=== PATIENT | male | born 1960 | race Caucasian/White ===

== ENCOUNTER 2016-06-02 18:19 | Emergency (ER) | payer OTHER ==
[~2016-06-02 18:19] MED LIST: NAPR1TAB34 PO
[2016-06-02 19:03] VITALS: BP 140/84; PULSE 83; RESP 18; TEMP 98.5; O2SAT 98
[2016-06-02] MEDS ORDERED: LISI-515 PO (19:09)
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
--- NOTE | 2016-06-02 20:02 | RADRPT ---
EXAM DATE/TIME: 06/02/2016 19:20 [facility] COMPARISON: No previous studies available for comparison. INDICATIONS : Fall and hit head with loss of consciousness today. RADIATION DOSE: 37.90 CTDIvol (mGy) MEDICAL HISTORY : Hypertension. Renal cancer. SURGICAL HISTORY : None. ENCOUNTER: Initial ACUITY: 1 day PAIN SCALE: 3/10 LOCATION: cranial TECHNIQUE: Multiple contiguous axial images were obtained of the head. Using automated exposure control and adj ustment of the mA and/or kV according to patient size, radiation dose was kept as low as reasonably a chievable to obtain optimal diagnostic quality images. FINDINGS: There is an air-fluid level in the left maxillary sinus characteristic of sinusitis. There is no intr acranial mass, hemorrhage or shift. No hydrocephalus. No abnormal extra-axial fluid collections. CONCLUSION: 1. Left maxillary sinus disease. No acute intracranial abnormalities. Socrates Bernard MD on June 02, 2016 at 19:54 Board Certified Radiologist. This report was verified electronically.
--- NOTE | 2016-06-02 20:05 | RADRPT ---
EXAM DATE/TIME: 06/02/2016 19:20 [facility] COMPARISON: No previous studies available for comparison. INDICATIONS : Fall and hit head with loss of consciousness today. RADIATION DOSE: 13.91 CTDIvol (mGy) MEDICAL HISTORY : Hypertension. Renal cancer. SURGICAL HISTORY : Tonsillectomy. ENCOUNTER: Initial ACUITY: 1 day PAIN SCALE: 2/10 LOCATION: neck TECHNIQUE: Volumetric scanning of the cervical spine was performed. Multiplanar reconstructions in the sagittal, coronal and oblique axial planes were performed. Using automated exposure control and adjustment o f the mA and/or kV according to patient size, radiation dose was kept as low as reasonably achievable to obtain optimal diagnostic quality images. FINDINGS: There is moderate degenerative disc disease in the cervical spine. There is a mild levoscoliosis. The re is a mild degenerative retrolisthesis of C4 on C5. 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 No preverte bral soft tissue swelling. CONCLUSION: 1. Moderate degenerative disc disease. No acute fracture. Socrates Bernard MD on June 02, 2016 at 20:00 Board Certified Radiologist. This report was verified electronically.
[2016-06-02] MEDS ORDERED: KETOROLAC TROMETHAMINE 30 MG/ML (IVP) VIAL IV PUSH ONE (20:30)
[2016-06-02] MEDS ORDERED: traMADol HCL 50 MG TAB PO ONE (20:30)
[2016-06-02] MEDS ORDERED: IBUP-232 PO (21:10)
[2016-06-02] MEDS ORDERED: HYDR-3533 PO (21:10)
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
[2016-08-17] MEDS ORDERED: IPRAAER INH (15:19)
[2016-08-31] MEDS ORDERED: PRED1 PO (15:10)
[2016-08-31] MEDS ORDERED: PNEU25IN IM (15:10)
[2016-08-31] MEDS ORDERED: VENTAER INH (15:10)
== END 2016-06-03 03:11 | disposition home or self-care (01) ==
LOC: NEPE 18:19
DX: S70.01XA Contusion of right hip, initial encounter (principal); S46.811A Strain of other muscles, fascia and tendons at shoulder and upper arm level, right arm, initial encounter; S16.1XXA Strain of muscle, fascia and tendon at neck level, initial encounter; I12.9 Hypertensive chronic kidney disease with stage 1 through stage 4 chronic kidney disease, or unspecified chronic kidney disease; N18.9 Chronic kidney disease, unspecified; Z87.442 Personal history of urinary calculi; W01.198A Fall on same level from slipping, tripping and stumbling with subsequent striking against other object, initial encounter; Y93.89 Activity, other specified; Y99.8 Other external cause status; Y92.59 Other trade areas as the place of occurrence of the external cause
CPT/HCPCS: 70450; 72125; 73030; 73502; 96374; 99284; J1885

== ENCOUNTER 2016-07-12 15:08 | Emergency (ER) | payer OTHER ==
[~2016-07-12] VITALS: Ht 185.4 cm; Wt 70.5 kg
[~2016-07-12 15:08] MED LIST changes: +HYDR-3533 PO; +IBUP-232 PO; +LISI-515 PO
[2016-07-12 15:13] VITALS: BP 92/58; PULSE 92; RESP 18; TEMP 99.7; O2SAT 96
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
[2016-08-17] MEDS ORDERED: IPRAAER INH (15:19)
[2016-08-31] MEDS ORDERED: VENTAER INH (15:10)
[2016-08-31] MEDS ORDERED: PRED1 PO (15:10)
[2016-08-31] MEDS ORDERED: PNEU25IN IM (15:10)
== END 2016-07-12 15:54 | disposition home or self-care (01) ==
LOC: PHEFT 15:08
DX: M54.5 Low back pain (principal); G89.29 Other chronic pain; I10 Essential (primary) hypertension; E07.9 Disorder of thyroid, unspecified; N19 Unspecified kidney failure; G47.30 Sleep apnea, unspecified; Z87.39 Personal history of other diseases of the musculoskeletal system and connective tissue; Z87.09 Personal history of other diseases of the respiratory system; Z86.59 Personal history of other mental and behavioral disorders; Z85.528 Personal history of other malignant neoplasm of kidney; Z87.19 Personal history of other diseases of the digestive system; Z87.448 Personal history of other diseases of urinary system; Z86.69 Personal history of other diseases of the nervous system and sense organs; W19.XXXD Unspecified fall, subsequent encounter
CPT/HCPCS: 99283

== ENCOUNTER 2016-08-10 16:16 | Observation (INO) | payer OTHER ==
[~2016-08-10] VITALS: Ht 185.4 cm; Wt 67.7 kg
[~2016-08-10 16:16] MED LIST changes: -IBUP-232 PO; -NAPR1TAB34 PO
[2016-08-10 16:39] VITALS: BP 128/71; PULSE 70; RESP 16; TEMP 98.2; O2SAT 99
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
--- NOTE | 2016-08-10 18:47 | RADHPO ---
EXAM DATE/TIME: 08/10/2016 18:19 [facility] COMPARISON: No previous studies available for comparison. INDICATIONS : Complains of right rib pain. MEDICAL HISTORY : None. SURGICAL HISTORY : None. ENCOUNTER: Initial ACUITY: 1 month PAIN SCORE: 8/10 LOCATION: Right ribs FINDINGS: There is no acute fracture or dislocation of the right ribs. There is a mass-like density within the right perihilar region which is indeterminate. Differential includes true pulmonary mass or nodular infiltrate. CT of the chest may be helpful for further evaluation of this finding and can be perform ed as an outpatient if clinically indicated. CONCLUSION: 1. No evidence of fracture or dislocation of the right ribs. 2. Right perihilar mass-like density consistent with true pulmonary mass or nodular infiltrate. Outpa tient CT of the chest may be helpful for further characterization of this finding if clinically indic ated. Cezar Russell MD on August 10, 2016 at 18:36 Board Certified Radiologist. This report was verified electronically.
[2016-08-10 20:00] VITALS: BP 136/78; PULSE 79; RESP 16; O2SAT 99
[2016-08-10 20:07] LABS: AUTOMATED NEUTROPHIL # 5.1 TH/MM3 (1.8-7.7); BASOPHIL % 0.2 % (0.0-2.0); CHLORIDE 98 MEQ/L (98-107); EOSINOPHIL # 0.1 TH/MM3 (0-0.4); EOSINOPHIL % 0.5 % (0.0-4.0); HEMATOCRIT 30.8 % (39.0-51.0); LYMPH % 49.6 % (9.0-44.0); LYMPHOCYTE # 6.8 TH/MM3 (1.0-4.8); MEAN CELL VOLUME 93.4 FL (80.0-100.0); MEAN CORPUSCULAR HEMOGLOBIN 30.7 PG (27.0-34.0); MEAN CORPUSCULAR HGB CONC 32.8 % (32.0-36.0); MONO % 12.4 % (0.0-8.0); NEUT % 37.3 % (16.0-70.0); PLATELET COUNT 497 TH/MM3 (150-450); POTASSIUM 4.3 MEQ/L (3.5-5.1); RED BLOOD COUNT 3.29 MIL/MM3 (4.50-5.90); RED CELL DISTRIBUTION WIDTH 12.8 % (11.6-17.2); SODIUM (NA) 137 MEQ/L (136-145); WHITE BLOOD COUNT 13.7 TH/MM3 (4.0-11.0)
[2016-08-10 20:10] LABS: HEMO FLAGS AUTO DIFF
[2016-08-10 20:12] LABS: ANION GAP 7 MEQ/L (5-15); BICARBONATE 32.4 MEQ/L (21.0-32.0); BLOOD UREA NITROGEN 16 MG/DL (7-18)
[2016-08-10 20:15] LABS: ALT (GPT) 43 U/L (12-78); AST (GOT) 37 U/L (15-37); GLOMERULAR FILTRATION RATE 81 ML/MIN (>89)
[2016-08-10 20:17] LABS: TOTAL BILIRUBIN ADULT 0.3 MG/DL (0.2-1.0)
[2016-08-10 20:18] LABS: ALKALINE PHOSPHATASE 135 U/L (45-117)
[2016-08-10 20:22] LABS: BANDS 1 % (0-6); NEUTROPHIL # MANUAL DIFF 5.1 TH/MM3 (1.8-7.7); PLATELET ESTIMATE SMEAR NORMAL (NORMAL); PLATELET MORPHOLOGY NORMAL (NORMAL); POLYS (SEG NEUTROPHILS) 36 % (16-70); SCAN/DIFF FINAL DIFF MANUAL; WBC DIFF SAMPLE 100
[2016-08-10] MEDS ORDERED: IOHEXOL 350 MG/ML 10 ML VIAL (for RAD DIAG) IV ONE (20:45)
--- NOTE | 2016-08-10 21:11 | RADHPO ---
EXAM DATE/TIME: 08/10/2016 20:33 [facility] COMPARISON: No previous studies available for comparison. INDICATIONS : Right chest pain. Right perihilar mass-like density. IV CONTRAST: 75 cc Omnipaque 350 (iohexol) IV RADIATION DOSE: 6.78 CTDIvol (mGy) MEDICAL HISTORY : Hypertension. Renal failure, chronic. Hernia, hiatal. Jaundice. Gastroesophageal reflux. SURGICAL HISTORY : Appendectomy. Nephrectomy, left. Splenectomy. ENCOUNTER: Initial ACUITY: 4 - 6 days PAIN SCALE: 8/10 LOCATION: Right chest TECHNIQUE: Volumetric scanning of the chest was performed. Using automated exposure control and adjustment of t he mA and/or kV according to patient size, radiation dose was kept as low as reasonably achievable to obtain optimal diagnostic quality images. FINDINGS: There is evidence of a ill-defined mass within the right lower lobe posteriorly which measures 6.5 x 5.8 x 4.9 cm. This is suspicious for bronchogenic carcinoma until proven otherwise. Percutaneous bi opsy of this lesion could be performed if requested. Right hilar and subcarinal mediastinal lymphade nopathy is noted. No other pulmonary nodules are noted. No pulmonary edema is noted. No pleural effusion is noted. T here is a small collection of air within the right paratracheal region of the superior mediastinum wh ich is nonspecific. CONCLUSION: 1. Right lower lobe mass measuring 6.5 x 5.8 x 4.9 cm which raises the possibility of bronchogenic ca rcinoma until proven otherwise. Percutaneous biopsy of this lesion could be performed if requested. 2. Right hilar and subcarinal mediastinal lymphadenopathy. 3. Small collection of air within the right paratracheal region of the superior mediastinum which is nonspecific. Cezar Russell MD on August 10, 2016 at 20:58 Board Certified Radiologist. This report was verified electronically.
[2016-08-10] MEDS ORDERED: ONDANSETRON HCL 4 MG/2 ML VIAL IV PUSH ONE (21:30)
[2016-08-10] MEDS ORDERED: SODIUM CHLORIDE 0.9% FLUSH 10 ML FLUSH IV FLUSH PRN (21:30)
[2016-08-10] MEDS ORDERED: MORPHINE SULFATE 8 MG/ML INJ IV PUSH ONE (21:30)
[2016-08-10] MEDS ORDERED: NALOXONE HCL 0.4 MG/ML AMP IV PRN (21:30)
[2016-08-10 21:35] VITALS: O2SAT 99
[2016-08-10 23:40] VITALS: BP 119/67; PULSE 77; RESP 16; O2SAT 97
[2016-08-11] VITALS (8 sets, daily range): BP systolic 117–147; BP diastolic 67–74; PULSE 55–82; RESP 16–18; TEMP 97–100; O2SAT 95–97
[2016-08-11] MEDS: MORPHINE SULFATE 4 MG/ML INJ IV PUSH PRN ×4 (00:49→15:55)
[2016-08-11 06:00] LABS: AUTOMATED NEUTROPHIL # 4.3 TH/MM3 (1.8-7.7); BASOPHIL # 0.3 TH/MM3 (0-0.2); BASOPHIL % 2.3 % (0.0-2.0); EOSINOPHIL # 0.1 TH/MM3 (0-0.4); EOSINOPHIL % 0.6 % (0.0-4.0); HEMATOCRIT 30.5 % (39.0-51.0); MEAN CELL VOLUME 92.8 FL (80.0-100.0); MEAN CORPUSCULAR HEMOGLOBIN 30.6 PG (27.0-34.0); MEAN CORPUSCULAR HGB CONC 32.9 % (32.0-36.0); MONO % 13.3 % (0.0-8.0); NEUT % 34.8 % (16.0-70.0); PLATELET COUNT 496 TH/MM3 (150-450); RED BLOOD COUNT 3.28 MIL/MM3 (4.50-5.90); RED CELL DISTRIBUTION WIDTH 12.9 % (11.6-17.2); WHITE BLOOD COUNT 12.3 TH/MM3 (4.0-11.0)
[2016-08-11 06:04] LABS: HEMO FLAGS AUTO DIFF
[2016-08-11 06:05] LABS: POTASSIUM 4.5 MEQ/L (3.5-5.1)
[2016-08-11 06:08] LABS: BICARBONATE 31.5 MEQ/L (21.0-32.0)
[2016-08-11 06:20] LABS: EOSINOPHILS 1 % (0-4); NEUTROPHIL # MANUAL DIFF 4.3 TH/MM3 (1.8-7.7); PLATELET ESTIMATE SMEAR HIGH (NORMAL); PLATELET MORPHOLOGY NORMAL (NORMAL); POLYS (SEG NEUTROPHILS) 35 % (16-70); SCAN/DIFF FINAL DIFF MANUAL; WBC DIFF SAMPLE 100
--- NOTE | 2016-08-11 08:36 | HHI.PR ---
Addendum to Inpatient Note Additional Information Was paged by Dr. Aidan ANDREWS no longer does percutaneous CT guided lung biopsy on Sunday' at [place], but outpatient CT guided biopsy can be arranged through case management. Michelle Ramos MD Aug 11, 2016 08:36
[2016-08-11] MEDS ORDERED: SODIUM CHLORIDE 0.9% FLUSH 10 ML FLUSH IV FLUSH SCH (09:00)
[2016-08-11] MEDS ORDERED: DIATRIZOATE MEGLUM/DIATRIZOATE SOD 9 ML CUP PO ONE (10:15)
--- NOTE | 2016-08-11 10:51 | HHI.HP ---
[facility] No Primary Care Physician Admission Diagnosis LUNG MASS, PAIN Diagnoses: Chief Complaint: Ongoing, unrelieved right-sided chest pain Travel History International Travel<30 Days: No Contact w/Intl Traveler <30 Da: No Traveled to Known Affected Are: No History of Present Illness Mr. Mckeon is a 56-year-old male with a known history of splenectomy, renal cell carcinoma with right nephrectomy, asthma, arthritis, GERD, and hypertension. He presented to the emergency room yesterday with complaints of ongoing chest pain for about a month now. Patient states pain is characteristically constant in nature, with it fluctuating between sharp, dull and pressing pain. He states the pain "takes his breath away". He did admit to associated shortness of breath which forces him to rest frequently and limits his activity. Pain does not occur at any particular time of day and has been on Lortab prescribed by his primary care doctor, which seems to help it subside here and there. Patient does admit to occasional dizziness and nausea without vomiting. He has noticed a 25-pound weight loss within the past month, with frequent fevers, night sweats , and diaphoresis requiring him to change clothes "six times per day". Patient does have an associated persistent, nonproductive cough. Chest CT has resulted showing a right lower lobe mass measuring 6.5x5.8x4.9 cm; right hilar and subcarinal mediastinal lymphadenopathy. Low grade temps at this time. Review of Systems Constitutional: COMPLAINS OF: Diaphoretic episodes, Fatigue, Weight loss, Chills, Dizziness, Change in appetite, Night Sweats Endocrine: DENIES: Heat/cold intolerance, Polydipsia, Polyuria, Polyphagia Eyes: DENIES: Blurred vision, Diplopia, Eye inflammation, Eye pain, Vision loss , Photosensitivity, Double Vision Ears, nose, mouth, throat: DENIES: Tinnitus, Hearing loss, Vertigo, Nasal discharge, Oral lesions, Throat pain, Hoarseness, Ear Pain, Running Nose, Epistaxis, Sinus Pain, Toothache, Odynophagia Respiratory: COMPLAINS OF: Shortness of breath, DENIES: Apneas, Cough, Snoring , Wheezing, Hemoptysis, Sputum production Cardiovascular: COMPLAINS OF: Chest pain, Dyspnea on Exertion, DENIES: Palpitations, Syncope, PND, Lower Extremity Edema, Orthopnea, Claudication Gastrointestinal: COMPLAINS OF: Nausea, DENIES: Abdominal pain, Black stools, Bloody stools, Constipation, Diarrhea, Vomiting, Difficulty Swallowing, Anorexia Genitourinary: DENIES: Sexual dysfunction, Urinary frequency, Urinary incontinence, Urgency, Hematuria, Dysuria, Nocturia, Penile Discharge, Testicular Pain, Testicular Swelling Musculoskeletal: COMPLAINS OF: Muscle aches, DENIES: Joint pain, Stiffness, Joint Swelling, Back pain, Neck pain Integumentary: DENIES: Abnormal pigmentation, Nail changes, Pruritus, Rash Hematologic/lymphatic: DENIES: Bruising, Lymphadenopathy Immunologic/allergic: DENIES: Eczema, Urticaria Neurologic: DENIES: Abnormal gait, Headache, Localized weakness, Paresthesias, Seizures, Speech Problems, Tremor, Poor Balance Psychiatric: DENIES: Anxiety, Confusion, Mood changes, Depression, Hallucinations, Agitation, Suicidal Ideation, Homicidal Ideation, Delusions Past Family Social History Past Medical History Asthma Arthritis GERD Hypertension Past Surgical History Splenectomy Right sided nephrectomy Reported Medications Reported Meds & Active Scripts Active Lortab (Hydrocodone-Acetaminophen) 5-325 Mg Tab 1 Tab PO Q6H PRN Reported Lisinopril 20 Mg Tab 20 Mg PO DAILY Allergies: Coded Allergies: Solu-Medrol (Verified Allergy, Intermediate, nausea, 08/10/16) Family History Mother and father are elderly but quite healthy. Social History Patient lives with elderly mother and father, single, with grown children. 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 Denies current or former tobacco use. Denies any recent alcohol use. Denies any illicit drug use. Physical Exam Vital Signs Vital Signs Date Time Temp Pulse Resp B/P Pulse Ox O2 Delivery O2 Flow Rate FiO2 08/11/16 09:41 19 08/11/16 07:02 100.0 82 16 118/67 96 Room Air 08/11/16 06:58 82 16 96 Room Air 08/11/16 06:00 75 18 135/70 95 Room Air 08/11/16 05:00 75 18 95 Room Air 08/11/16 04:00 75 18 130/72 95 Room Air 3/31/17 02:00 75 18 128/71 95 Room Air 08/11/16 01:00 75 18 95 Room Air 08/11/16 00:00 78 16 98 Room Air 08/10/16 23:40 77 16 119/67 97 Room Air 08/10/16 21:50 16 08/10/16 21:35 99 08/10/16 20:00 79 16 136/78 99 Room Air 08/10/16 20:00 79 16 99 Room Air 08/10/16 18:01 18 99 Room Air 08/10/16 16:39 98.2 70 16 128/71 99 Physical Exam GENERAL: This is a well-developed patient, in no apparent distress, lying comfortably in bed. SKIN: No rashes, ecchymoses or lesions. Cool and dry. HEAD: Atraumatic. Normocephalic. No temporal or scalp tenderness. EYES: Pupils equal round and reactive. Extraocular motions intact. No scleral icterus. No injection or drainage. No nystagmus noted. ENT: Nose without bleeding, purulent drainage or septal hematoma. Throat without erythema, tonsillar hypertrophy or exudate. Uvula midline. Airway patent. NECK: Trachea midline. No JVD or lymphadenopathy. Supple, nontender, no meningeal signs. CARDIOVASCULAR: Regular rate and rhythm without murmurs, gallops, or rubs. RESPIRATORY: Clear to auscultation. Breath sounds equal bilaterally. No wheezes , rales, or rhonchi. GASTROINTESTINAL: Abdomen soft and nondistended. Somewhat tender to palpation throughout. No hepato-splenomegaly, or palpable masses. No guarding. BS active x 4. MUSCULOSKELETAL: Extremities without clubbing, cyanosis, or edema. No joint tenderness, effusion, or edema noted. No calf tenderness. Negative Homans sign bilaterally. NEUROLOGICAL: Awake and alert. Cranial nerves II through XII intact. Motor and sensory grossly within normal limits. Five out of 5 muscle strength in all muscle groups. Normal speech. Laboratory Laboratory Tests Test 08/10/16 08/11/16 19:30 05:45 White Blood Count 13.7 12.3 Red Blood Count 3.29 3.28 Hemoglobin 10.1 10.0 Hematocrit 30.8 30.5 Mean Corpuscular Volume 93.4 92.8 Mean Corpuscular Hemoglobin 30.7 30.6 Mean Corpuscular Hemoglobin 32.8 32.9 Concent Red Cell Distribution Width 12.8 12.9 Platelet Count 497 496 Mean Platelet Volume 7.8 7.5 Neutrophils (%) (Auto) 37.3 34.8 Lymphocytes (%) (Auto) 49.6 49.0 Monocytes (%) (Auto) 12.4 13.3 Eosinophils (%) (Auto) 0.5 0.6 Basophils (%) (Auto) 0.2 2.3 Neutrophils # (Auto) 5.1 4.3 Lymphocytes # (Auto) 6.8 6.0 Monocytes # (Auto) 1.7 1.6 Eosinophils # (Auto) 0.1 0.1 Basophils # (Auto) 0.0 0.3 CBC Comment AUTO DIFF AUTO DIFF Differential Total Cells 100 100 Counted Neutrophils % (Manual) 36 35 Band Neutrophils % 1 Lymphocytes % 50 50 Monocytes % 13 14 Neutrophils # (Manual) 5.1 4.3 Differential Comment FINAL DIFF FINAL DIFF MANUAL MANUAL Platelet Estimate NORMAL HIGH Platelet Morphology Comment NORMAL NORMAL Red Cell Morphology Comment NORMAL NORMAL Sodium Level 137 135 Potassium Level 4.3 4.5 Chloride Level 98 96 Carbon Dioxide Level 32.4 31.5 Anion Gap 7 8 Blood Urea Nitrogen 16 13 Creatinine 0.97 0.88 Estimat Glomerular Filtration 81 90 Rate Random Glucose 93 96 Calcium Level 8.7 8.6 Total Bilirubin 0.3 Aspartate Amino Transf 37 (AST/SGOT) Alanine Aminotransferase 43 (ALT/SGPT) Alkaline Phosphatase 135 Total Protein 7.9 Albumin 2.5 Eosinophils % 1 Result Diagram: 08/11/16 0545 08/11/16 0545 Imaging Last Impressions Chest CT 08/10/16 1859 Signed Impressions: Service Date/Time: July 20:33 - CONCLUSION: 1. Right lower lobe mass measuring 6.5 x 5.8 x 4.9 cm which raises the possibility of bronchogenic carcinoma until proven otherwise. Percutaneous biopsy of this lesion could be performed if requested. 2. Right hilar and subcarinal mediastinal lymphadenopathy. 3. Small collection of air within the right paratracheal region of the superior mediastinum which is nonspecific. Cezar Russell MD Ribs X-Ray 08/10/16 1814 Signed Impressions: Service Date/Time: July 18:19 - CONCLUSION: 1. No evidence of fracture or dislocation of the right ribs. 2. Right perihilar mass-like density consistent with true pulmonary mass or nodular infiltrate. Outpatient CT of the chest may be helpful for further characterization of this finding if clinically indicated. Cezar Russell MD Assessment and Plan Assessment and Plan Right lower lobe mass, right sided chest pain, diaphoresis, leukocytosis, bandemia, fever - Admitted to observation - Chest x-ray: right perihilar mass-like density consistent with true pulmonary mass or nodular infiltrate. - Chest CT resulted: right lower lobe mass measuring 6.5x5.8x4.9 cm; right hilar and subcarinal mediastinal lymphadenopathy. - CT abdomen/pelvis ordered. - Consult Medical oncology, appreciate input. - Interventional radiology already consulted: requested percutaneous lung biopsy - AFP, CA 19-9,CEA, LDH, PSA ordered. - Control pain: Morphine PRN Anemia - Monitor CBC DVT Prophylaxis - Sequential compression devices Written by Obi Melchor PA-C, acting as scribe for Dr. Ramos. All or portions of this note were transcribed by scribe Obi Melchor. I, Dr. Michelle Ramos personally performed the history, physical exam, and medical decision making; and confirmed the accuracy of the information in the transcribed note. I personally spoke with Dr. Antonio Tee of interventional radiology, appointment for CT-guided biopsy has been arranged for Sunday at 11 AM. I also spoke with Dr. Quigley so that the patient can be seen in his office within one week, the patient's face sheet was faxed to their patient referral line. Patient instructed to call oncology office if he does not hear back from them by Sunday. We have also arranged him to have patient assistance so he can be seen in the community clinic for primary care. Authenticated by Dr. Michelle Ramos on 08/11/16 at 17:56. Obi Melchor Aug 11, 2016 10:51 Michelle Ramos MD Aug 11, 2016 17:57
[2016-08-11] MEDS ORDERED: HYDR-3533 PO (11:03)
[2016-08-11] MEDS ORDERED: PERI8.6T PO (11:23)
[2016-08-11] MEDS ORDERED: LEVA750T PO (11:23)
--- NOTE | 2016-08-11 12:12 | RADHPO ---
EXAM DATE/TIME: 08/11/2016 11:51 [facility] COMPARISON: CT THORAX W CONTRAST, August 10, 2016, 20:33. INDICATIONS : Lung mass, evaluate for metastasis. ORAL CONTRAST: Prescribed oral contrast ingested. RADIATION DOSE: 8.46 CTDIvol (mGy) MEDICAL HISTORY : Renal cell carcinoma. Myocardial infarction. Congestive heart failure.Hypertension. Renal failure. Diabetes. SURGICAL HISTORY : Splenectomy. CABG ENCOUNTER: Initial ACUITY: 1 day PAIN SCALE: 0/10 LOCATION: Abdomen TECHNIQUE: Volumetric scanning of the abdomen and pelvis was performed. Using automated exposure control and ad justment of the mA and/or kV according to patient size, radiation dose was kept as low as reasonably achievable to obtain optimal diagnostic quality images. FINDINGS: Minimal parenchymal changes are seen in the lung base on the right. The liver, spleen, pancreas are unremarkable. Surgical clips are seen around the portion of the spleen and in the left renal fossa. The right kidney is unremarkable. There is no free fluid. Pelvic contents are unremarkable. CONCLUSION: There is no evidence of metastatic disease. Lack of intravenous contrast can make subtle metastatic disease difficult to see History of left nephrectomy for renal cell carcinoma. Colten Tee MD FACR on August 11, 2016 at 12:07 Board Certified Radiologist. This report was verified electronically.
[2016-08-17] MEDS ORDERED: IPRAAER INH (15:19)
[2016-08-31] MEDS ORDERED: PRED1 PO (15:10)
[2016-08-31] MEDS ORDERED: PNEU25IN IM (15:10)
[2016-08-31] MEDS ORDERED: VENTAER INH (15:10)
== END 2016-08-11 18:45 | disposition home or self-care (01) ==
LOC: PHED 16:16 → PHEDA 21:28 → PHEDH 08-11 01:28 → PH3A 08-11 08:56
PROVIDERS: ADMIT Family Medicine; ATTEND Family Medicine
DX: R07.89 Other chest pain (principal); D64.9 Anemia, unspecified; D72.825 Bandemia; R61 Generalized hyperhidrosis; R91.8 Other nonspecific abnormal finding of lung field; I13.0 Hypertensive heart and chronic kidney disease with heart failure and stage 1 through stage 4 chronic kidney disease, or unspecified chronic kidney disease; N18.9 Chronic kidney disease, unspecified; I50.9 Heart failure, unspecified; K21.9 Gastro-esophageal reflux disease without esophagitis; J45.909 Unspecified asthma, uncomplicated; M19.90 Unspecified osteoarthritis, unspecified site; D72.829 Elevated white blood cell count, unspecified; I25.2 Old myocardial infarction; Z95.1 Presence of aortocoronary bypass graft; F41.9 Anxiety disorder, unspecified; Z90.81 Acquired absence of spleen; Z85.528 Personal history of other malignant neoplasm of kidney; Z88.8 Allergy status to other drugs, medicaments and biological substances
CPT/HCPCS: 71101; 71260; 74176; 80048; 80053; 82105; 82378; 83615; 84153; 85007; 85027; 86301; 99285; G0378; J2270; J2405; Q9963; Q9967

== ENCOUNTER 2016-08-15 10:46 | Day surgery (SDC) | payer OTHER ==
[~2016-08-15] VITALS: Ht 185.4 cm; Wt 68.2 kg
[2016-08-15] VITALS (7 sets, daily range): BP systolic 116–128; BP diastolic 61–82; PULSE 76–85; RESP 16–20; TEMP 98.1–98.8; O2SAT 98–99
[~2016-08-15 10:46] MED LIST changes: +LEVA750T PO; +PERI8.6T PO
[2016-08-15 12:12] LABS: APTT (PATIENT) 25.7 SEC (24.3-30.1); INTERNATIONAL NORMALIZED RATIO 1.1 RATIO; PROTHROMBIN TIME - PATIENT 12.2 SEC (9.8-11.6)
[2016-08-15] MEDS ORDERED: LIDOCAINE 1%/EPINEPHrine 1:100,000 SOLN 20 ML VIAL ONE (12:26)
[2016-08-15] MEDS ORDERED: fentaNYL CITRATE 250 MCG/5 ML AMP ONE (12:36)
[2016-08-15] MEDS ORDERED: MIDAZOLAM HCL 5 MG/5 ML VIAL ONE (12:36)
[2016-08-15] MEDS ORDERED: SODIUM CHLORIDE 0.9% FLUSH 10 ML FLUSH IV FLUSH PRN ×2 (12:45)
[2016-08-15] MEDS ORDERED: SODIUM CHLOR 0.9% 1000 ML IV SCH (12:45)
[2016-08-15] MEDS ORDERED: MIDAZOLAM HCL 2 MG/2 ML VIAL ONE (13:31)
--- NOTE | 2016-08-15 13:53 | PD.RAD ---
Post Procedure Progress Note Pre Procedure Diagnosis: (1) Lung mass Post Procedure Diagnosis: (1) Lung mass Procedure Date: Aug 15, 2016 Supervising Radiologist: Sushant Tee Anesthesia: Local, Conscious Sedation Plan of Activity Patient to Unit: [facility] Patient Condition: Good Additional Comments: Successful ct guided right lung mass biopsy samples sent for path and culture See PACS Report for procedural detail/treatment Sushant Tee MD Aug 15, 2016 13:53
[2016-08-15] MEDS ORDERED: oxyCODONE/ACETAMINOPHEN 5 MG/325 MG TAB PO PRN (14:00)
[2016-08-15] MEDS ORDERED: MORPHINE SULFATE 8 MG/ML INJ ONE (14:13)
[2016-08-15] MEDS ORDERED: MORPHINE SULFATE 4 MG/ML INJ IV ONE (14:30)
--- NOTE | 2016-08-15 14:30 | RADRPT ---
EXAM DATE/TIME: 08/15/2016 13:07 [facility] COMPARISON: CT ABDOMEN & PELVIS W/O CONTRAST, August 11, 2016, 11:51. INDICATIONS : Right lung mass. SEDATION TIME: 40 minutes BIOPSY SITE: Right lung MEDICATION(S): 1.) 6 mg midazolam (Versed) IV 2.) 300 mcg fentanyl (Sublimaze) IV DEVICE(S): 1.) 20 gauge Temno core biopsy needle MEDICAL HISTORY : Renal cell carcinoma. Hypertension. SURGICAL HISTORY : Appendectomy. Splenectomy. Left nephrectomy. ENCOUNTER: Initial ACUITY: 1 day PAIN SCORE: 0/10 LOCATION: Right chest A total of three core specimen(s) were obtained and sent to the laboratory for pathologic evaluation. PROCEDURE: 1. CT guided lung biopsy. 2. Conscious sedation with continuous EKG and oximetry monitoring. 3. EKG and oximetry remained stable throughout the procedure. Prior to the procedure informed consent was obtained. Any appropriate prior imaging studies were rev iewed. Using automated exposure control and adjustment of the mA and/or kV according to patient size, radiation dose was kept as low as reasonably achievable to obtain optimal diagnostic quality images. The site was prepped in a sterile fashion. Full sterile technique was used, including cap, mask, alisa rile gloves and gown and a large sterile sheet. Hand hygiene and 2% chlorhexidine and/or betadine/al cohol prep was utilized per protocol for cutaneous antisepsis. The skin and subcutaneous tissues wer e infiltrated with local anesthetic solution. With CT guidance the previously identified target was localized. Biopsy was performed using the presc ribed needle as above. Adequate hemostasis was obtained with compression at the puncture site. Follow-up CT scan reveals no pneumothorax. Conscious sedation was performed with the prescribed dosages and duration as above in the presence of an independent trained radiology nurse to assist in the monitoring of the patient. EKG and oximetry remained stable throughout the procedure. The patient tolerated the procedure well and there were no complications. The patient was sent to Radiology Outpatient Unit in stable condition. CONCLUSION: Uncomplicated CT guided biopsy of the right lung. Sushant Tee MD on August 15, 2016 at 14:26 Board Certified Radiologist. This report was verified electronically.
--- NOTE | 2016-08-15 16:16 | RADRPT ---
EXAM DATE/TIME: 08/15/2016 15:12 [facility] COMPARISON: RIBS RIGHT(W PA CXR MIN 3VWS), August 10, 2016, 18:19. INDICATIONS : Post right lung biopsy. MEDICAL HISTORY : Hypertension. Renal failure, chronic. Hernia, hiatal. Jaundice. Gastroesophageal SURGICAL HISTORY : Appendectomy. Nephrectomy, left. Splenectomy. ENCOUNTER: Initial ACUITY: 1 day PAIN SCORE: 10/10 LOCATION: Bilateral chest FINDINGS: The patient is post right lung biopsy. No pneumothorax is seen. Again noted is a large mass in the ri ght lung base. Left lung is clear. The osseous structures are intact. CONCLUSION: No pneumothorax following CT guided biopsy of the right lung. Sushant Tee MD on August 15, 2016 at 16:14 Board Certified Radiologist. This report was verified electronically.
[2016-08-17] MEDS ORDERED: IPRAAER INH (15:19)
[2016-08-31] MEDS ORDERED: VENTAER INH (15:10)
[2016-08-31] MEDS ORDERED: PNEU25IN IM (15:10)
[2016-08-31] MEDS ORDERED: PRED1 PO (15:10)
== END 2016-08-15 17:00 | disposition home or self-care (01) ==
LOC: HRAD 10:46 → HRIP 10:47 → HRAD 17:00
PROVIDERS: ATTEND Surgery
DX: R91.8 Other nonspecific abnormal finding of lung field (principal); I10 Essential (primary) hypertension; J84.89 Other specified interstitial pulmonary diseases; C64.9 Malignant neoplasm of unspecified kidney, except renal pelvis
CPT/HCPCS: 32405; 71010; 77012; 85610; 85730; 87015; 87070; 87102; 87116; 87205; 87206; 88305; J2250; J2270; J3010

== ENCOUNTER → 2016-09-27 | Outpatient (CLI) | payer OTHER ==
[~2016-09-27] MED LIST changes: +IODIXANOL 320 MG/ML 10 ML VIAL (for Rad CT) IV ONE; +IPRAAER INH; -LEVA750T PO; -LISI-515 PO; +PRED1 PO; +VENTAER INH
--- NOTE | 2016-10-12 21:54 | RADRPT ---
EXAM DATE/TIME: 09/27/2016 14:07 [facility] COMPARISON: CT THORAX W CONTRAST, August 10, 2016, 20:33. INDICATIONS : Restaging for cancer. History of renal cancer IV CONTRAST: 50 cc Omnipaque 350 (iohexol) IV ; Cumulative dose for multiple exams. RADIATION DOSE: 5.1 CTDIvol (mGy) ; Combined studies - Thorax/Abdomen/Pelvis MEDICAL HISTORY : Renal cell carcinoma. SURGICAL HISTORY : Nephrectomy, left. ENCOUNTER: Initial ACUITY: 1 day PAIN SCALE: 0/10 LOCATION: chest TECHNIQUE: Volumetric scanning of the chest was performed. Using automated exposure control and adjustment of t he mA and/or kV according to patient size, radiation dose was kept as low as reasonably achievable to obtain optimal diagnostic quality images. FINDINGS: The alveolar disease involving the superior segment of the right lower lobe has nearly completely res olved suggesting inflammatory process rather than malignancy. There are 2 small bulla may be the site of the abnormality. No pleural effusions are identified. The 2 cm precarinal lymph node is unchanged. No new nodes are identified. The visualized upper abdomen demonstrates no abnormality. CONCLUSION: 1. Comparison with the prior study the alveolar disease in the right lower lobe has nearly entirely r esolved suggesting inflammatory process rather than malignancy though correlation with histologic fin dings is necessary. 2. No other nodules are identified. Grant Norton MD on September 27, 2016 at 15:00 Board Certified Radiologist. This report was verified electronically.
--- NOTE | 2016-10-12 21:55 | RADRPT ---
EXAM DATE/TIME: 09/27/2016 14:07 [facility] COMPARISON: CT ABDOMEN & PELVIS W/O CONTRAST, August 11, 2016, 11:51. INDICATIONS : Restaging for cancer. History of renal cancer 10 years ago IV CONTRAST: 50 cc Omnipaque 350 (iohexol) IV ; Cumulative dose for multiple exams. ORAL CONTRAST: Prescribed oral contrast ingested. RADIATION DOSE: 5.1 CTDIvol (mGy) ; Combined studies - Thorax/Abdomen/Pelvis MEDICAL HISTORY : Renal cell carcinoma. SURGICAL HISTORY : Nephrectomy, left. ENCOUNTER: Initial ACUITY: 1 day PAIN SCALE: 0/10 LOCATION: abdomen TECHNIQUE: Volumetric scanning of the abdomen and pelvis was performed. Using automated exposure control and ad justment of the mA and/or kV according to patient size, radiation dose was kept as low as reasonably achievable to obtain optimal diagnostic quality images. FINDINGS: Examination of the lung bases demonstrates no abnormality. No pleural fluid is identified. No pulmona ry nodules are present. The liver is normal in size and no focal defects are identified. The spleen i s surgically absent. The adrenal glands are unremarkable. The right kidney is unremarkable. The left kidney is surgically absent. No abnormally enlarged lymph nodes are identified. Examination of the pelvis demonstrates no evidence of free fluid or pelvic mass. No abnormally enlarg ed inguinal or retroperitoneal lymph nodes are present. The bladder is unremarkable. CONCLUSION: 1. Postsurgical changes as above. 2. No evidence of metastatic disease. Grant Norton MD on September 27, 2016 at 15:04 Board Certified Radiologist. This report was verified electronically.
== END ==
LOC: HRAD 12:20
PROVIDERS: ATTEND Internal Medicine Hematology & Oncology
DX: Z51.89 Encounter for other specified aftercare (principal); Z85.528 Personal history of other malignant neoplasm of kidney
CPT/HCPCS: 71260; 74177; Q9967

== ENCOUNTER → 2016-12-11 | Outpatient (CLI) | payer OTHER ==
[~2016-12-11] MED LIST changes: +BACT800T5 PO; -HYDR-3533 PO; -IODIXANOL 320 MG/ML 10 ML VIAL (for Rad CT) IV ONE; -IPRAAER INH; -PERI8.6T PO; -PRED1 PO; -VENTAER INH
--- NOTE | 2016-12-13 10:18 | RSPPFT ---
DATE OF PROCEDURE: 12/11/16 COMMENTS: Spirometry shows FVC of 4.7 at 90% of predicted, FEV1 of 3.8 at 91%, FEV1/FVC ratio is normal. Flow is normal at FEF 25, FEF 50, FEF 75 and FEF 25-75. No response after bronchodilator treatment. Lung volumes show residual volume is normal. Total lung capacity is normal. Diffusion capacity is normal. Flow volume loop indicates a normal pattern. IMPRESSION: 1. Normal spirometry. 2. No response after bronchodilator treatment. 3. Normal lung volumes. 4. Normal diffusion capacity.
== END ==
LOC: HRSP 12:38
PROVIDERS: ATTEND Specialist
DX: J98.4 Other disorders of lung (principal); R06.00 Dyspnea, unspecified
CPT/HCPCS: 94060; 94726; 94729

== ENCOUNTER 2016-12-19 19:27 | Emergency (ER) | payer OTHER ==
[~2016-12-19] VITALS: Ht 185.4 cm; Wt 76.3 kg
[2016-12-19 19:32] VITALS: BP 162/93; PULSE 100; RESP 20; TEMP 98.3; O2SAT 97
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
[2016-12-19] MEDS ORDERED: LIDOCAINE 2%/EPINEPHrine 1:100,000 30ML MDV INFIL ONE (20:30)
[2016-12-19] MEDS ORDERED: LIDOCAINE HCL 1% 50 ML VIAL INFIL ONE (20:30)
[2016-12-19] MEDS ORDERED: BACT800T5 PO (20:45)
[2016-12-19] MEDS ORDERED: ACETAMINOPHEN/HYDROcodone 325 MG/5 MG TAB PO ONE (21:15)
== END 2016-12-19 21:15 | disposition home or self-care (01) ==
LOC: PHEFT 19:27
DX: L02.512 Cutaneous abscess of left hand (principal); J45.909 Unspecified asthma, uncomplicated; I10 Essential (primary) hypertension; B95.61 Methicillin susceptible Staphylococcus aureus infection as the cause of diseases classified elsewhere
CPT/HCPCS: 10061; 86403; 87070; 87186; 87205

== ENCOUNTER → 2016-12-20 | Outpatient (CLI) | payer OTHER ==
[~2016-12-20] MED LIST changes: +AMLO10 PO; +OXYC-392 PO; +PERI8.6T PO; +SULF1TAB23 PO
--- NOTE | 2016-12-20 13:45 | RADRPT ---
EXAM DATE/TIME: 12/20/2016 12:41 [facility] COMPARISON: CT THORAX W CONTRAST, September 27, 2016, 14:07. INDICATIONS : Follow up lung lesion right side RADIATION DOSE: 5.1 CTDIvol (mGy) MEDICAL HISTORY : Renal cell SURGICAL HISTORY : Left nephrectomy ENCOUNTER: Initial ACUITY: 1 day PAIN SCALE: 0/10 LOCATION: chest TECHNIQUE: Volumetric scanning of the chest was performed. Using automated exposure control and adjustment of t he mA and/or kV according to patient size, radiation dose was kept as low as reasonably achievable to obtain optimal diagnostic quality images. DICOM format image data is available electronically for r eview and comparison. Follow-up recommendations for incidentally detected pulmonary nodules are based at a minimum on nodul e size and patient risk factors according to Fleischner Society Guidelines. FINDINGS: LUNGS: A subsegmental opacity with associated small cyst located in the right lower lobe is significantly sm aller. The small cystic components have almost completely resolved.. Mild bronchial dilatation extend s to this area. Lungs lies are clear with no new parenchymal abnormalities. PLEURAE: There is no pleural thickening or pleural effusion. MEDIASTINUM: The heart and great vessels demonstrate no acute abnormality. There is no mediastinal or hilar lymph adenopathy. AXILLAE: Within normal limits. No lymphadenopathy. MUSCULOSKELETAL: Within normal limits for patient age. MISCELLANEOUS: The visualized upper abdominal organs demonstrate no acute abnormality. CONCLUSION: 1. Resolving parenchymal opacity in the right lower lobe most characteristic of an inflammatory proce ss. Continued surveillance is recommended with followup scan in 6 months. 2. No new or acute abnormalities. Bhupendra Patel MD on December 20, 2016 at 13:39 Board Certified Radiologist. This report was verified electronically.
== END ==
LOC: HRAD 12:25
PROVIDERS: ATTEND Specialist
DX: J98.4 Other disorders of lung (principal); R06.00 Dyspnea, unspecified
CPT/HCPCS: 71250

== ENCOUNTER 2016-12-25 21:01 | Inpatient (IN) | payer OTHER ==
[~2016-12-25] VITALS: Ht 185.4 cm; Wt 77.4 kg
[~2016-12-25 21:01] MED LIST changes: -AMLO10 PO; -OXYC-392 PO; -PERI8.6T PO; -SULF1TAB23 PO
[2016-12-25] MEDS ORDERED: SODIUM CHLOR 0.9% 1000 ML INJ 1,000 ML IV SCH (21:09)
[2016-12-25 21:14] VITALS: BP 178/94; PULSE 50; RESP 22; TEMP 97.9; O2SAT 99
[2016-12-25] MEDS ORDERED: MORPHINE SULFATE 4 MG/ML INJ IV PUSH ONE ×2 (21:15→22:00)
[2016-12-25] MEDS ORDERED: ONDANSETRON HCL 4 MG/2 ML VIAL IVP ONE (21:15)
[2016-12-25 21:19] VITALS: O2SAT 100
--- NOTE | 2016-12-25 21:35 | PD ---
Data Data Last Documented VS Vital Signs Date Time Temp Pulse Resp B/P Pulse Ox O2 Delivery O2 Flow Rate FiO2 12/25/16 23:21 58 22 222/111 100 Room Air 12/25/16 21:19 2 12/25/16 21:14 97.9 Orders Complete Blood Count With Diff (12/25/16 21:09) Comprehensive Metabolic Panel (12/25/16 21:09) Lipase (12/25/16 21:09) Lactic Acid (12/25/16 21:09) Prothrombin Time / Inr (Pt) (12/25/16 21:09) Act Partial Throm Time (Ptt) (12/25/16 21:09) Urinalysis - C+S If Indicated (12/25/16 21:09) Ct Abd/Pel W Iv Contrast(Rout) (12/25/16 21:09) Iv Access Insert/Monitor (12/25/16 21:09) Ecg Monitoring (12/25/16 21:09) Oximetry (12/25/16 21:09) Morphine Inj (Morphine Inj) (12/25/16 21:15) Ondansetron Inj (Zofran Inj) (12/25/16 21:15) Sodium Chlor 0.9% 1000 Ml Inj (Ns 1000 M (12/25/16 21:09) Electrocardiogram (12/25/16 21:09) Chest, Single Ap (12/25/16 21:09) Troponin I (12/25/16 21:11) Ckmb (Isoenzyme) Profile (12/25/16 21:11) Morphine Inj (Morphine Inj) (12/25/16 22:00) Us Abdomen Gallbladder (12/25/16 ) Hydromorphone Pf Inj (Dilaudid Pf Inj) (12/25/16 22:15) Iohexol 350 Inj (Omnipaque 350 Inj) (12/25/16 22:32) Ondansetron Inj (Zofran Inj) (12/25/16 23:00) Hydromorphone Pf Inj (Dilaudid Pf Inj) (12/25/16 23:15) Promethazine Inj (Phenergan Inj) (12/25/16 23:15) Electrocardiogram (12/25/16 ) Sodium Chlor 0.9% 1000 Ml Inj (Ns 1000 M (12/26/16 00:45) Lactic Acid (12/26/16 00:43) Piperacil-Tazo 4.5 Gm Premix (Zosyn 4.5 (12/26/16 00:45) Blood Culture (12/26/16 00:43) Monoscreen (12/26/16 00:43) Hydromorphone Pf Inj (Dilaudid Pf Inj) (12/26/16 00:45) Admit Order (Ed Use Only) (12/26/16 ) Admit To Inpatient (12/26/16 ) Vital Signs (Adult) Q4H (12/26/16 00:57) Activity Oob With Assistance (12/26/16 00:57) Form Builder / Telemetry .CONTINUOUS (12/26/16 00:57) Diet Npo (12/26/16 Breakfast) Sodium Chlor 0.9% 1000 Ml Inj (Ns 1000 M (12/26/16 00:57) Sodium Chloride 0.9% Flush (Ns Flush) (12/26/16 01:00) Sodium Chloride 0.9% Flush (Ns Flush) (12/26/16 09:00) Ondansetron Inj (Zofran Inj) (12/26/16 01:00) Comprehensive Metabolic Panel (12/27/16 06:00) Complete Blood Count With Diff (12/27/16 06:00) Case Management Consult (12/26/16 00:57) Naloxone Inj (Narcan Inj) (12/26/16 01:00) Inpatient Certification (12/26/16 ) Piperacil-Tazo 4.5 Gm Premix (Zosyn 4.5 (12/26/16 06:00) Labs Laboratory Tests Test 12/25/16 21:20 White Blood Count 17.0 TH/MM3 Red Blood Count 4.45 MIL/MM3 Hemoglobin 14.4 GM/DL Hematocrit 41.5 % Mean Corpuscular Volume 93.3 FL Mean Corpuscular Hemoglobin 32.4 PG Mean Corpuscular Hemoglobin 34.7 % Concent Red Cell Distribution Width 14.4 % Platelet Count 293 TH/MM3 Mean Platelet Volume 8.4 FL Neutrophils (%) (Auto) 59.9 % Lymphocytes (%) (Auto) 31.9 % Monocytes (%) (Auto) 8.2 % Eosinophils (%) (Auto) 0.0 % Basophils (%) (Auto) 0.0 % Neutrophils # (Auto) 10.2 TH/MM3 Lymphocytes # (Auto) 5.4 TH/MM3 Monocytes # (Auto) 1.4 TH/MM3 Eosinophils # (Auto) 0.0 TH/MM3 Basophils # (Auto) 0.0 TH/MM3 CBC Comment AUTO DIFF Differential Total Cells 100 Counted Neutrophils % (Manual) 60 % Band Neutrophils % 1 % Lymphocytes % 30 % Monocytes % 9 % Neutrophils # (Manual) 10.4 TH/MM3 Differential Comment FINAL DIFF MANUAL Platelet Estimate NORMAL Platelet Morphology Comment NORMAL Red Cell Morphology Comment NORMAL Prothrombin Time 11.5 SEC Prothromb Time International 1.0 RATIO Ratio Activated Partial 23.7 SEC Thromboplast Time Sodium Level 139 MEQ/L Potassium Level 4.0 MEQ/L Chloride Level 104 MEQ/L Carbon Dioxide Level 26.1 MEQ/L Anion Gap 9 MEQ/L Blood Urea Nitrogen 17 MG/DL Creatinine 1.18 MG/DL Estimat Glomerular Filtration 64 ML/MIN Rate Random Glucose 145 MG/DL Lactic Acid Level 2.9 mmol/L Calcium Level 8.9 MG/DL Total Bilirubin 0.6 MG/DL Aspartate Amino Transf 206 U/L (AST/SGOT) Alanine Aminotransferase 437 U/L (ALT/SGPT) Alkaline Phosphatase 146 U/L Total Creatine Kinase 43 U/L Troponin I LESS THAN 0.02 NG/ML Total Protein 7.6 GM/DL Albumin 3.3 GM/DL Lipase 91 U/L [facility] Supervised Visit with TAMIKA: Yes Narrative Course Patient care assumed from Higinio Jaime PA-C at 2300. This is a 56-year-old male presents emergency Department with several complaints. Epigastric and right upper quadrant pain was his primary concern. He does have a history of hepatitis C and has some transaminitis today. CAT scan of his abdomen wasn't remarkable. Ultrasound of the right upper quadrant does show some minimal evidence for cholecystitis. The patient does have a white count of 17,000 but has a history of a splenectomy from renal cancer. Patient does appear somewhat dehydrated. I think that he would benefit from admission to the hospital at this time further workup. The patient was discussed with Dr. Crystal who is agreeable for admission. Certainly he has needed quite a few doses of pain medicine to subdue his pain. Shortly after he was admitted to Dr. Crystal, he did have a seizure in the emergency department. Dr. Crystal administered 2 mg of Ativan , he was postictal for a short time it was repositioned in the bed. He was going back to the CAT scanner for a CT of the head by Dr. Crystal's orders. Diagnosis Primary Impression: Abdominal pain Additional Impressions: Seizure Leukocytosis Transaminitis Admitting Information Admitting Physician Requests: Admit Scripts No Active Prescriptions or Reported Meds Condition: Stable Cezar Worrell MD Dec 25, 2016 21:35
--- NOTE | 2016-12-25 21:44 | RADRPT ---
EXAM DATE/TIME: 12/25/2016 21:15 [facility] COMPARISON: CT THORAX W/O CONTRAST, December 20, 2016, 12:41. CT THORAX W CONTRAST, September 27, 2016, 14:07. INDICATIONS : Chest pain. MEDICAL HISTORY : Renal cell carcinoma. SURGICAL HISTORY : Nephrectomy, left. ENCOUNTER: Initial ACUITY: 1 day PAIN SCORE: 10/10 LOCATION: Bilateral chest FINDINGS: Mild infiltrate seen medially of the right lower lobe, probably not significantly changed from the pr ior CTs.. Left lung remains clear. No pleural effusion or pneumothorax seen on either side. Heart size stable, within normal limits. CONCLUSION: No significant change mild right lower lobe infiltrate. Nate Herring MD on December 25, 2016 at 21:41 Board Certified Radiologist. This report was verified electronically.
[2016-12-25 21:57] LABS: AUTOMATED NEUTROPHIL # 10.2 TH/MM3 (1.8-7.7); HEMATOCRIT 41.5 % (39.0-51.0); LYMPH % 31.9 % (9.0-44.0); LYMPHOCYTE # 5.4 TH/MM3 (1.0-4.8); MEAN CELL VOLUME 93.3 FL (80.0-100.0); MEAN CORPUSCULAR HEMOGLOBIN 32.4 PG (27.0-34.0); MEAN CORPUSCULAR HGB CONC 34.7 % (32.0-36.0); MONO % 8.2 % (0.0-8.0); NEUT % 59.9 % (16.0-70.0); PLATELET COUNT 293 TH/MM3 (150-450); RED BLOOD COUNT 4.45 MIL/MM3 (4.50-5.90); RED CELL DISTRIBUTION WIDTH 14.4 % (11.6-17.2)
[2016-12-25 22:01] LABS: HEMO FLAGS AUTO DIFF
[2016-12-25 22:12] LABS: ANION GAP 9 MEQ/L (5-15); APTT (PATIENT) 23.7 SEC (24.3-30.1); AST (GOT) 206 U/L (15-37); BICARBONATE 26.1 MEQ/L (21.0-32.0); BLOOD UREA NITROGEN 17 MG/DL (7-18); CHLORIDE 104 MEQ/L (98-107); GLOMERULAR FILTRATION RATE 64 ML/MIN (>89); PROTHROMBIN TIME - PATIENT 11.5 SEC (9.8-11.6); SODIUM (NA) 139 MEQ/L (136-145)
[2016-12-25 22:13] LABS: ALT (GPT) 437 U/L (12-78)
[2016-12-25 22:15] LABS: ALKALINE PHOSPHATASE 146 U/L (45-117); TOTAL BILIRUBIN ADULT 0.6 MG/DL (0.2-1.0)
[2016-12-25] MEDS ORDERED: HYDROmorphone HCL PF 1 MG/ML VIAL IV PUSH ONE ×2 (22:15→23:15)
[2016-12-25 22:17] LABS: CREATINE KINASE 43 U/L (39-308)
[2016-12-25 22:30] LABS: BANDS 1 % (0-6); NEUTROPHIL # MANUAL DIFF 10.4 TH/MM3 (1.8-7.7); POLYS (SEG NEUTROPHILS) 60 % (16-70); WBC DIFF SAMPLE 100
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
[2016-12-25 22:31] LABS: PLATELET ESTIMATE SMEAR NORMAL (NORMAL); PLATELET MORPHOLOGY NORMAL (NORMAL); SCAN/DIFF FINAL DIFF MANUAL
[2016-12-25] MEDS ORDERED: IOHEXOL 350 MG/ML 10 ML VIAL (for RAD DIAG) IV ONE (22:32)
--- NOTE | 2016-12-25 22:54 | RADRPT ---
EXAM DATE/TIME: 12/25/2016 22:30 [facility] COMPARISON: CT ABDOMEN & PELVIS W CONTRAST, September 27, 2016, 14:07. INDICATIONS : Diffuse abdominal pain, nausea and vomiting. IV CONTRAST: 50 cc Omnipaque 350 (iohexol) IV ORAL CONTRAST: No oral contrast ingested. RADIATION DOSE: 6.92 CTDIvol (mGy) MEDICAL HISTORY : Renal calculi. Hypertension. Hernia, hiatal.Renal cancer. SURGICAL HISTORY : Splenectomy. Nephrectomy, left.Appendectomy. ENCOUNTER: Initial ACUITY: 1 day PAIN SCALE: 10/10 LOCATION: All quadrants. TECHNIQUE: Volumetric scanning of the abdomen and pelvis was performed. Using automated exposure control and ad justment of the mA and/or kV according to patient size, radiation dose was kept as low as reasonably achievable to obtain optimal diagnostic quality images. DICOM format image data is available electro nically for review and comparison. FINDINGS: LOWER LUNGS: The visualized lower lungs are clear. LIVER: Homogeneous density without lesion. There is no dilation of the biliary tree. No calcified gallston es. SPLEEN: Previous splenectomy with partial regeneration. PANCREAS: Within normal limits. KIDNEYS: Previous left nephrectomy. Nephrectomy bed appears normal. Right kidney is normal. ADRENAL GLANDS: Within normal limits. VASCULAR: There is no aortic aneurysm. BOWEL/MESENTERY: The stomach, small bowel, and colon demonstrate no acute abnormality. There is no free intraperitone al air or fluid. Normal appendix. ABDOMINAL WALL: Within normal limits. RETROPERITONEUM: There is no lymphadenopathy. BLADDER: No wall thickening or mass. REPRODUCTIVE: Within normal limits. INGUINAL: There is no lymphadenopathy or hernia. MUSCULOSKELETAL: No acute bony abnormality demonstrated. Disc space narrowing with vacuum phenomena seen at L4/L5. The re is partial sacralization with degenerative changes on the left of L5. CONCLUSION: No acute abnormality demonstrated. Previous splenectomy and left nephrectomy. Spleen is partially reg enerated. Lower lumbar degenerative changes as above. Nate Herring MD on December 25, 2016 at 22:49 Board Certified Radiologist. This report was verified electronically.
[2016-12-25] MEDS ORDERED: ONDANSETRON HCL 4 MG/2 ML VIAL IV PUSH ONE (23:00)
[2016-12-25] MEDS ORDERED: PROMETHAZINE INJ 25 MG/ML VIAL IM ONE (23:15)
[2016-12-25 23:21] VITALS: BP 222/111; PULSE 58; RESP 22; O2SAT 100
[2016-12-26] VITALS (12 sets, daily range): BP systolic 107–192; BP diastolic 55–103; PULSE 51–88; RESP 16–20; TEMP 97.7–98.6; O2SAT 93–100
--- NOTE | 2016-12-26 00:10 | RADRPT ---
EXAM DATE/TIME: 12/25/2016 23:00 [facility] COMPARISON: No previous studies available for comparison. INDICATIONS : Right upper quadrant pain. MEDICAL HISTORY : Arthritis. Hernia, hiatal. Syncope. Migraines. Chest pain. HTN. Asthma. Sleep apnea. GERD. Renal ca rcinoma. Renal calculi. Jaundice. Anxiety. Subtance use. SURGICAL HISTORY : Tonsillectomy. Splenectomy. Appendectomy. Left nephrectomy. Hand surgery. ENCOUNTER: Initial ACUITY: 3 days PAIN SCORE: 10/10 LOCATION: Right upper quadrant MEASUREMENTS: LIVER: 14.3 cm length COMMON DUCT: 3 mm RIGHT KIDNEY: 14.2 x 6.9 x 5.0 cm FINDINGS: LIVER: Normal echotexture without focal lesion or ductal dilatation. COMMON DUCT: No intraluminal mass or stone visualized. GALLBLADDER: Abnormal appearance the gallbladder with multiple echogenic and shadowing foci and a positive sonogra phic Crook's sign. Gallbladder wall measures 3 mm. No pericholecystic fluid. PANCREAS: Not well seen. RIGHT KIDNEY: No evidence of hydronephrosis, stone, or mass. CONCLUSION: Echogenic foci within the gallbladder lumen suggests multiple stones and there is a positive sonograp hic Crook's sign. Normal dimension common hepatic duct. Sincere Jasso MD on December 26, 2016 at 0:06 Board Certified Radiologist. This report was verified electronically.
[2016-12-26] MEDS ORDERED: PIPERACIL-TAZO 4.5 GM PREMIX 100 ML IV ONE (00:45)
[2016-12-26] MEDS ORDERED: SODIUM CHLOR 0.9% 1000 ML INJ 1,000 ML IV ONE (00:45)
[2016-12-26] MEDS ORDERED: HYDROmorphone HCL PF 2 MG/ML VIAL IV PUSH ONE (00:45)
[2016-12-26] MEDS ORDERED: ONDANSETRON HCL 4 MG/2 ML VIAL IVP PRN (01:00)
[2016-12-26] MEDS ORDERED: SODIUM CHLORIDE 0.9% FLUSH 10 ML FLUSH IV FLUSH PRN (01:00)
[2016-12-26] MEDS ORDERED: NALOXONE HCL 0.4 MG/ML AMP IV PRN (01:00)
[2016-12-26] MEDS: SODIUM CHLOR 0.9% 1000 ML INJ 1,000 ML IV SCH ×3 (01:14→19:59)
[2016-12-26] MEDS ORDERED: hydrALAZINE HCL 20 MG/ML VIAL IV PUSH ONE (03:15)
--- NOTE | 2016-12-26 03:19 | HHI.HP ---
[facility] Primary [facility] Physician No Primary Care Physician Admission Diagnosis Epigastric pain/Chest pain. Intractible Abdominal pain. Diagnoses: Chief Complaint: nausea, vomiting, abdomian pain Travel History International Travel<30 Days: No Contact w/Intl Traveler <30 Da: No Traveled to Known Affected Are: No History of Present Illness Written by CHARLY De Jesus acting as scribe for [Ginny] on 12/26/16 at 03: 18. 56 y/o male with a history of HTN, asthma, Gerd, and renal cell carcinoma presented to the ED with complaints of nausea, vomiting and abdominal pain. Upon examination patient began to talk in circles and complain of all symptoms mentioned. He states 2 weeks ago he was injured at work in his left had, and had an I&D in the hospital and sent home on no antibiotics. He also states at this time he had his Left knee abscess drained as well. He has been unable to follow up with because he has no pcp, and no money. He complains of fevers, sob for a while worse over the last month, left calf pain, nausea, vomiting that is worse over the last week, chest pain and dizziness. He denies any change in bowel movements. At about 3:30 am patient's right right arm became contracted and he slurred his speech, and began to have a seizure. Patient did fall off the stretcher but did not hit his head. 2mg of Ativan IV was given and patient became post-ictal. A few mins later he opened his eyes and was startled but unable to talk or state his name. According to EMR patient does not have a history of seizures. Review of Systems Except as stated in HPI: all other systems reviewed are Neg Past Family Social History Past Medical History HTN, not on medication Staph in left hand wound Asthma Gerd Renal cell carcinoma Past Surgical History Left nephrectomy splenectomy Reported Medications Reported Meds & Active Scripts Active No Active Prescriptions or Reported Medications Allergies: Coded Allergies: Solu-Medrol (Verified Adverse Reaction, Intermediate, Nausea, 12/25/16) Active Ordered Medications Current Medications Medications (Trade) Dose Ordered Sig/Elio Route Start Time Stop Time Status Last Admin (NS 1000 ml Inj) 1,000 ml @ 100 mls/hr Q10H IV 12/26/16 00:57 12/26/16 01:14 (NS Flush) 2 ml UNSCH PRN IV FLUSH 12/26/16 01:00 (NS Flush) 2 ml BID IV FLUSH 12/26/16 09:00 (Zofran Inj) 4 mg Q6H PRN IVP 12/26/16 01:00 Naloxone HCl 0.4 mg 0.4 mg UNSCH PRN IV 12/26/16 01:00 (Zosyn 4.5 Gm Premix) 100 ml @ 200 mls/hr Q6H IV 12/26/16 06:00 Family History Unknown family history Social History Tobacco use: Denies Alcohol use: Quit 15 years ago Illicit drug use: Marijuana Physical Exam Vital Signs Vital Signs Date Time Temp Pulse Resp B/P Pulse Ox O2 Delivery O2 Flow Rate FiO2 12/26/16 01:09 51 16 159/103 96 Room Air 12/25/16 23:21 58 22 222/111 100 Room Air 12/25/16 21:19 100 Nasal Cannula 2 12/25/16 21:14 97.9 50 22 178/94 99 Physical Exam GENERAL: This is a well-nourished, well-developed patient, who just had a witnessed seizure during examination SKIN: Diaphoretic. Left hand wound with purulent drainage. HEAD: Atraumatic. Normocephalic. EYES: Pupils equal round and reactive. ENT: Nose without bleeding, purulent drainage or septal hematoma. Airway patent. NECK: Trachea midline. No JVD or lymphadenopathy. CARDIOVASCULAR: Regular rate and rhythm without murmurs, gallops, or rubs. RESPIRATORY: Clear to auscultation. Breath sounds equal bilaterally. No wheezes , rales, or rhonchi. GASTROINTESTINAL: Abdomen soft, non-tender, nondistended. No hepato-splenomegaly , or palpable masses. No guarding. MUSCULOSKELETAL: Extremities without clubbing, cyanosis, or edema. Left knee joint tenderness. Left calf tenderness. NEUROLOGICAL: Post-ictal. Normal speech prior to seizure. Laboratory Laboratory Tests Test 12/25/16 12/26/16 21:20 01:05 White Blood Count 17.0 Red Blood Count 4.45 Hemoglobin 14.4 Hematocrit 41.5 Mean Corpuscular Volume 93.3 Mean Corpuscular Hemoglobin 32.4 Mean Corpuscular Hemoglobin 34.7 Concent Red Cell Distribution Width 14.4 Platelet Count 293 Mean Platelet Volume 8.4 Neutrophils (%) (Auto) 59.9 Lymphocytes (%) (Auto) 31.9 Monocytes (%) (Auto) 8.2 Eosinophils (%) (Auto) 0.0 Basophils (%) (Auto) 0.0 Neutrophils # (Auto) 10.2 Lymphocytes # (Auto) 5.4 Monocytes # (Auto) 1.4 Eosinophils # (Auto) 0.0 Basophils # (Auto) 0.0 CBC Comment AUTO DIFF Differential Total Cells 100 Counted Neutrophils % (Manual) 60 Band Neutrophils % 1 Lymphocytes % 30 Monocytes % 9 Neutrophils # (Manual) 10.4 Differential Comment FINAL DIFF MANUAL Platelet Estimate NORMAL Platelet Morphology Comment NORMAL Red Cell Morphology Comment NORMAL Prothrombin Time 11.5 Prothromb Time International 1.0 Ratio Activated Partial 23.7 Thromboplast Time Sodium Level 139 Potassium Level 4.0 Chloride Level 104 Carbon Dioxide Level 26.1 Anion Gap 9 Blood Urea Nitrogen 17 Creatinine 1.18 Estimat Glomerular Filtration 64 Rate Random Glucose 145 Lactic Acid Level 2.9 3.6 Calcium Level 8.9 Total Bilirubin 0.6 Aspartate Amino Transf 206 (AST/SGOT) Alanine Aminotransferase 437 (ALT/SGPT) Alkaline Phosphatase 146 Total Creatine Kinase 43 Troponin I LESS THAN 0.02 Total Protein 7.6 Albumin 3.3 Lipase 91 Monoscreen NEG Date/Time Procedure Status Source Growth 12/26/16 01:05 Aerobic Blood Culture Received Blood Peripheral Pending 12/26/16 01:05 Anaerobic Blood Culture Received Blood Peripheral Pending Result Diagram: 12/25/16211912/25/162119 Imaging Last Impressions Chest X-Ray 12/25/162108 Signed Impressions: Service Date/Time: Sunday, December 25, 2016 21:15 - CONCLUSION: No significant change mild right lower lobe infiltrate. Nate Herring MD Abdomen/Pelvis CT 12/25/162108 Signed Impressions: Service Date/Time: Sunday, December 25, 2016 22:30 - CONCLUSION: No acute abnormality demonstrated. 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 Lower lumbar degenerative changes as above. Nate Herring MD Gall Bladder Ultrasound 12/25/16 0000 Signed Impressions: Service Date/Time: Sunday, December 25, 2016 23:00 - CONCLUSION: Echogenic foci within the gallbladder lumen suggests multiple stones and there is a positive sonographic Crook's sign. Normal dimension common hepatic duct. Sincere Jasso MD Assessment and Plan Problem List: (1) Transaminitis ICD Code: R74.0 Status: Acute (2) Seizure ICD Code: R56.9 Status: Acute (3) Leukocytosis ICD Code: D72.829 Status: Acute (4) Lactic acidosis ICD Code: E87.2 Status: Acute Assessment and Plan 56 y/o male with a history of HTN, asthma, Gerd, and renal cell carcinoma presented to the ED with complaints of nausea, vomiting and abdominal pain. During examination patient began to have a seizure and became post-ictal. Transaminitis, AST 206, ALT 437 Gallbladder US reviewed and shows Echogenic foci within the gallbladder lumen suggests multiple stones and there is a positive sonographic Rcook's sign. Normal dimension common hepatic duct. -CMP in AM -May need to consult GI when patient is stable Seizure, acute, new onset, no documented history of seizures -CT brain ordered -Ativan prn -Consult neurology -EEG ordered -Transfer to ICU for closer monitoring -Seizure precautions Lactic Acidosis, with leukocytosis, likely from staph infection in left hand wound WBC 17.2, lactic 2.9-->3.6, UA negative -Zosyn IV -Blood cultures pending -Cont IVF, 2L given in ED DVT prophylaxis: SCDs This note was transcribed by chalino [Michelle Figueroa]. I, Dr. Mary Gross personally performed the history, physical exam, and medical decision making; and confirmed the accuracy of the information in the transcribed note. Authenticated by Dr. Mary Gross on 12/26/16 at 03:18. Discussed Condition With Patient, RN and ED physician Physician Certification 2 Midnight Certification Type: Admission for Inpatient Services Order for Inpatient Services The services are ordered in accordance with Medicare regulations or non- Medicare payer requirements, as applicable. In the case of services not specified as inpatient-only, they are appropriately provided as inpatient services in accordance with the 2-midnight benchmark. Estimated LOS (days): 2 days is the estimated time the patient will need to remain in the hospital, assuming treatment plan goals are met and no additional complications. Post-Hospital Plan: Not yet determined Michelle Figueroa Dec 26, 2016 03:19 Mary Gross MD Dec 26, 2016 06:12
[2016-12-26 03:30] LABS: BLOOD, URINE NEG (NEG); COMMENT (UR) CULT NOT INDICATED; CULTURE IF INDICATED CULT NOT INDICATED; GLUCOSE,URINE NEG (NEG); KETONE, URINE NEG (NEG); MUCUS URINE FEW /lpf (OCC); NITRITE,URINE NEG (NEG); SQUAMOUS EPITHELIAL CELL URINE <1 /hpf (0-5); URINE COLOR YELLOW (YELLW/STRAW)
[2016-12-26] MEDS ORDERED: Vancomycin Consult Pharmacy 1 EA OTHER SCH ×2 (04:00→12:00)
[2016-12-26] MEDS ORDERED: LORazepam 2 MG/ML VIAL IV PUSH PRN (04:00)
--- NOTE | 2016-12-26 04:51 | RADRPT ---
EXAM DATE/TIME: 12/26/2016 04:06 [facility] COMPARISON: CT BRAIN W/O CONTRAST, June 02, 2016, 19:20. INDICATIONS : Altered mental status. Slurred speech. Possible seizure. RADIATION DOSE: 34.17 CTDIvol (mGy) MEDICAL HISTORY : Hypertension. Renal cell carcinoma. SURGICAL HISTORY : None. ENCOUNTER: Initial ACUITY: 1 day PAIN SCALE: 0/10 LOCATION: cranial TECHNIQUE: Multiple contiguous axial images were obtained of the head. Using automated exposure control and adj ustment of the mA and/or kV according to patient size, radiation dose was kept as low as reasonably a chievable to obtain optimal diagnostic quality images. DICOM format image data is available electro nically for review and comparison. FINDINGS: CEREBRUM: The ventricles are normal for age. No evidence of midline shift, mass lesion, hemorrhage or acute in farction. No extra-axial fluid collections are seen. POSTERIOR FOSSA: The cerebellum and brainstem are intact. The 4th ventricle is midline. The cerebellopontine angle i s unremarkable. EXTRACRANIAL: The visualized portion of the orbits is intact. SKULL: The calvaria is intact. No evidence of skull fracture. CONCLUSION: Negative noncontrast CT brain. Sincere Jasso MD on December 26, 2016 at 4:48 Board Certified Radiologist. This report was verified electronically.
[2016-12-26] MEDS ORDERED: VANCOMYCIN INJ 1,250 MG in SODIUM CHLOR 0.9% 250 ML INJ 250 ML IV ONE (05:00)
[2016-12-26] MEDS ORDERED: CHLORHEXIDINE GLUCONATE 2 % 1 PACK (2 CLOTHS) TOP PRN (05:00)
[2016-12-26] MEDS ORDERED: MISCELLANEOUS NURSING INFORMATION XX SCH (05:00)
[2016-12-26] MEDS: PIPERACIL-TAZO 4.5 GM PREMIX 100 ML IV SCH ×4 (06:00→23:11)
--- NOTE | 2016-12-26 07:41 | EKG ---
Date Performed: 12/25/2016 Time Performed: 21:17:17 PTAGE: 56 years EKG: Baseline artifact present SINUS BRADYCARDIA MINIMAL VOLTAGE CRITERIA FOR LVH, CONSIDER NORM AL VARIANT MODERATE ST DEPRESSION ABNORMAL ECG There are no definite changes except for slowing of th e rate but I would repeat EKG given the artifact. DOCTOR: Jonah Collins Interpretating Date/Time 12/26/2016 07:39:45
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
[2016-12-26] MEDS: SODIUM CHLORIDE 0.9% FLUSH 10 ML FLUSH IV FLUSH SCH ×2 (09:00→19:58)
--- NOTE | 2016-12-26 09:42 | HHI.PR ---
Subjective Remarks Follow-up for abdominal pain and episodes seizure Patient sitting on bed. His nurse is at the bedside during the interview. Patient stated that his bilateral finger still feels numb any he has a headache. He said it has improved. He stated his main concern was abdominal pain. Pain located in the right upper quadrant epigastric area. He stated that it is constant. He did not notice any association with food. He stated that the past few days it occur intermittently but resolved on its own and now it is severe. At the moment he denies any nausea or vomiting. He remains afebrile. Objective Vitals Vital Signs Date Time Temp Pulse Resp B/P Pulse Ox O2 Delivery O2 Flow Rate FiO2 12/26/16 07:00 97.7 56 16 192/100 99 12/26/16 06:00 59 12/26/16 04:37 97.9 79 20 175/97 99 12/26/16 03:49 76 18 150/81 100 Nasal Cannula 3 12/26/16 01:09 51 16 159/103 96 Room Air 12/25/16 23:21 58 22 222/111 100 Room Air 12/25/16 21:19 100 Nasal Cannula 2 12/25/16 21:14 97.9 50 22 178/94 99 I/O 12/25/16 12/25/16 12/25/16 12/26/16 12/26/16 12/26/16 06:59 14:59 22:59 06:59 14:59 22:59 Intake Total 306 ml Output Total 450 ml Balance -144 ml Intake IV Total 306 ml Output Urine Total 450 ml Stool Total 0 ml Result Diagram: 12/25/16211912/25/162119 Objective Remarks GENERAL: in NAD CARDIOVASCULAR: Regular rate and rhythm without murmurs, gallops, or rubs. RESPIRATORY: Breath sounds equal bilaterally. No accessory muscle use. GASTROINTESTINAL: Abdomen soft, nondistended. Positive tenderness palpation the right upper quadrant and epigastric area. No peritoneal signs. MUSCULOSKELETAL: No cyanosis, or edema. BACK: Nontender without obvious deformity. No CVA tenderness. NEURO: AAO X 3. Sensation and motor grossly intact. Medications and IVs Current Medications Morphine Sulfate (Morphine Inj) 4 mg ONCE ONCE IV PUSH Last administered on t 21:25; Start 12/25/16 at 21:15; Stop 12/25/16 at 21:16; Status DC Ondansetron HCl 4 mg 4 mg ONCE ONCE IVP Last administered on 12/25/16 21:26; Start 12/25/16 at 21:15; Stop 12/25/16 at 21:16; Status DC Sodium Chloride (NS 1000 ml Inj) 1,000 ml @ 1,000 mls/hr Q1H IV Last administered on 12/25/16 21:25; Start 12/25/16 at 21:09; Stop 12/25/16 at 22:08 ; Status DC Morphine Sulfate (Morphine Inj) 4 mg ONCE ONCE IV PUSH Last administered on 22:03; Start 12/25/16 at 22:00; Stop 12/25/16 at 22:01; Status DC Hydromorphone HCl (Dilaudid Pf Inj) 1 mg ONCE ONCE IV PUSH Last administered on 12/25/16 22:23; Start 12/25/16 at 22:15; Stop 12/25/16 at 22:16; Status DC Iohexol (Omnipaque 350 Inj) 50 ml STK-MED ONCE IV Last administered on 22:32; Start 12/25/16 at 22:32; Stop 12/25/16 at 22:33; Status DC Ondansetron HCl (Zofran Inj) 4 mg ONCE ONCE IV PUSH Last administered on 22:48; Start 12/25/16 at 23:00; Stop 12/25/16 at 23:01; Status DC Hydromorphone HCl (Dilaudid Pf Inj) 1 mg ONCE ONCE IV PUSH Last administered on 12/25/16 23:18; Start 12/25/16 at 23:15; Stop 12/25/16 at 23:16; Status DC Promethazine HCl 25 mg 25 mg ONCE ONCE IM Last administered on 12/25/16 23:18 ; Start 12/25/16 at 23:15; Stop 12/25/16 at 23:16; Status DC Sodium Chloride 1,000 ml @ 999 mls/hr BOLUS ONCE IV Last administered on 12/26 01:08; Start 12/26/16 at 00:45; Stop 12/26/16 at 01:45; Status DC Piperacillin Sod/ Tazobactam Sod (Zosyn 4.5 Gm Premix) 100 ml @ 200 mls/hr ONCE ONCE IV Last administered on 12/26/16 01:08; Start 12/26/16 at 00:45; Stop 12/26/16 at 01:14; Status DC Hydromorphone HCl 2 mg 2 mg ONCE ONCE IV PUSH Last administered on 12/26/16 01:09; Start 12/26/16 at 00:45; Stop 12/26/16 at 00:48; Status DC Sodium Chloride (NS 1000 ml Inj) 1,000 ml @ 100 mls/hr Q10H IV Last administered on 12/26/16 01:14; Start 12/26/16 at 00:57 Sodium Chloride (NS Flush) 2 ml UNSCH PRN IV FLUSH FLUSH AFTER USING IV ACCESS ; Start 12/26/16 at 01:00 Sodium Chloride (NS Flush) 2 ml BID IV FLUSH ; Start 12/26/16 at 09:00 Ondansetron HCl (Zofran Inj) 4 mg Q6H PRN IVP NAUSEA OR VOMITING; Start at 01:00 Naloxone HCl 0.4 mg 0.4 mg UNSCH PRN IV SEE LABEL COMMENTS; Start 12/26/16 at 01:00 Piperacillin Sod/ Tazobactam Sod (Zosyn 4.5 Gm Premix) 100 ml @ 200 mls/hr Q6H IV Last administered on 12/26/16 06:00; Start 12/26/16 at 06:00 Hydralazine HCl (Apresoline Inj) 10 mg ONCE ONCE IV PUSH Last administered on 12/26/16 03:13; Start 12/26/16 at 03:15; Stop 12/26/16 at 03:16; Status DC Lorazepam 1 mg 1 mg Q15M PRN IV PUSH seizrues Last administered on 12/26/16 04 :10; Start 12/26/16 at 04:00 Pharmacy Profile Note 0 ml @ 0 mls/hr UNSCH OTHER ; Start 12/26/16 at 04:00 Vancomycin HCl/ Sodium Chloride (Vancomycin Inj/ NS 250 ml Inj) 262.5 ml @ 250 mls/hr ONCE ONCE IV Last administered on 12/26/16 05:00; Start 12/26/16 at 05 :00; Stop 12/26/16 at 06:02; Status DC Miscellaneous Information 1 Q361D XX Last administered on 12/26/16t 05:00; Start 12/26/16 at 05:00 Chlorhexidine Gluconate (Chlorhexidine 2% Cloth) 3 pack Taper DAILY@04 TOP ; Start 12/27/16 at 04:00; Stop 12/23/17 at 03:59 Chlorhexidine Gluconate 3 pack 3 pack UNSCH PRN TOP HYGIENIC CARE; Start at 05:00 Vancomycin HCl/ Sodium Chloride (Vancomycin Inj/ NS 500 ml Inj) 515 ml @ 250 mls/hr Q12H IV ; Start 12/26/16 at 13:00 Miscellaneous Information SPECIFIC LAB TO BE DRAWN:PHARMACY CONSULT DATE TO... ONCE ONCE .XX ; Start 12/27/16 at 12:45; Stop 12/27/16 at 12:46 A/P Problem List: (1) Transaminitis ICD Code: R74.0 Status: Acute (2) Seizure ICD Code: R56.9 Status: Acute (3) Leukocytosis ICD Code: D72.829 Status: Acute (4) Lactic acidosis ICD Code: E87.2 Status: Acute Assessment and Plan 56 y/o male with a history of HTN, asthma, Gerd, and renal cell carcinoma presented to the ED with complaints of nausea, vomiting and abdominal pain. During examination patient began to have a seizure and became post-ictal. Transaminitis, AST 206, ALT 437 Gallbladder US reviewed and shows Echogenic foci within the gallbladder lumen suggests multiple stones and there is a positive sonographic Crook's sign. Normal dimension common hepatic duct. -Patient is symptomatic with elevated WBC. Consult GI. May need a consulted general surgeon pending GI consult. -Will get hepatitis panel and EtOH level. Continue to trend. -Patient started on IV Zosyn. DC vancomycin. Seizure, acute, new onset, no documented history of seizures -CT brain negative. Troponin negative. -Neurologist consulted. MRI and EEG ordered. Maybe more syncope. Hypertensive urgency -Secondary to noncompliance. -Will start patient on amlodipine. He stated that he is not allowed to be on lisinopril. DVT prophylaxis: Guillermina Tavares MD Dec 26, 2016 09:42 DVT prophylaxis: Guillermina Tavares MD Dec 26, 2016 09:42
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
[2016-12-26] MEDS ORDERED: VANCOMYCIN INJ 1,500 MG in SODIUM CHLORID 0.9% 500 ML INJ 500 ML IV SCH (13:00)
[2016-12-26] MEDS: VANCOMYCIN INJ 1,500 MG in SODIUM CHLORID 0.9% 500 ML INJ 500 ML IV SCH (14:57)
--- NOTE | 2016-12-26 16:08 | PD.CONS ---
HPI History of Present Illness This is a 56 year old male with hx hep C, GERD, renal cell carcinoma s/p nephrectomy who presented with complaint of feeling like he was having a heart attack and pain "all over my body." He is poor historian and unable to further qualify or quantify complaints of pain, can give me no meaningful hx. He admits nausea, dry heaving, weight loss of 50 lbs in the last 2 months. He admits constipation intermittently, diet dependent. He denies diarrhea. Thinks he has had a colonoscopy at [facility] but does not know when, by who, or what it was for. he has had EGD 4-5 times in the past for hematemesis and rectal bleeding. He reports hx fluctuating LFTs. His mother reports that she has seen him jaundiced in the past. He says he knows he has hep c but claims that nobody told him he did. Admits distant hx heavy drinking but none in 15 years. (Nisa Parker) PFSH Past Medical History HTN, not on medication Staph in left hand wound Asthma Gerd Renal cell carcinoma Past Surgical History Left nephrectomy splenectomy (Nisa Parker) Coded Allergies: methylprednisolone (Unverified Adverse Reaction, Intermediate, Nausea, ) Family History Unknown family history Social History Tobacco use: Denies Alcohol use: Quit 15 years ago Illicit drug use: Marijuana (Nisa Parker) Review of Systems Constitutional: COMPLAINS OF: Weight loss Eyes: DENIES: Blurred vision Ears, nose, mouth, throat: DENIES: Hearing loss Respiratory: DENIES: Cough Cardiovascular: COMPLAINS OF: Chest pain Gastrointestinal: COMPLAINS OF: Abdominal pain, Constipation, Nausea, DENIES: Black stools, Bloody stools, Diarrhea, Vomiting Genitourinary: DENIES: Hematuria Musculoskeletal: DENIES: Joint Swelling Integumentary: DENIES: Jaundice Hematologic/lymphatic: DENIES: Bruising Psychiatric: DENIES: Confusion (Nisa Parker) GI Exam Vitals I&O Vital Signs Date Time Temp Pulse Resp B/P Pulse Ox O2 Delivery O2 Flow Rate FiO2 12/26/16 15:04 98.6 88 18 107/55 93 12/26/16 12:00 97.8 53 18 174/91 96 12/26/16 12:00 53 12/26/16 10:00 56 12/26/16 08:00 58 12/26/16 08:00 98.5 58 19 166/95 99 12/26/16 07:00 97.7 56 16 192/100 99 12/26/16 06:00 59 12/26/16 04:37 97.9 79 20 175/97 99 12/26/16 03:49 76 18 150/81 100 Nasal Cannula 3 12/26/16 01:09 51 16 159/103 96 Room Air 12/25/16 23:21 58 22 222/111 100 Room Air 12/25/16 21:19 100 Nasal Cannula 2 12/25/16 21:14 97.9 50 22 178/94 99 I/O 12/25/16 12/25/16 12/25/16 12/26/16 12/26/16 12/26/16 07:00 15:00 23:00 07:00 15:00 23:00 Intake Total 306 ml Output Total 450 ml 475 ml Balance -144 ml -475 ml Intake IV Total 306 ml Output Urine Total 450 ml 475 ml Stool Total 0 ml Imaging Last Impressions Head CT 12/26/16 0000 Signed Impressions: Service Date/Time: Monday, December 26, 2016 04:06 - CONCLUSION: Negative noncontrast CT brain. Sincere Jasso MD Chest X-Ray 12/25/162108 Signed Impressions: Service Date/Time: Sunday, December 25, 2016 21:15 - CONCLUSION: No significant change mild right lower lobe infiltrate. Nate Herring MD Abdomen/Pelvis CT 12/25/162108 Signed Impressions: Service Date/Time: Sunday, December 25, 2016 22:30 - CONCLUSION: No acute abnormality demonstrated. 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 Lower lumbar degenerative changes as above. Nate Herring MD Gall Bladder Ultrasound 12/25/16 0000 Signed Impressions: Service Date/Time: Sunday, December 25, 2016 23:00 - CONCLUSION: Echogenic foci within the gallbladder lumen suggests multiple stones and there is a positive sonographic Crook's sign. Normal dimension common hepatic duct. Sincere Jasso MD Laboratory Test 12/25/16 12/26/16 12/26/16 12/26/16 21:20 01:05 03:16 04:40 White Blood Count 17.0 TH/MM3 Red Blood Count 4.45 MIL/MM3 Hemoglobin 14.4 GM/DL Hematocrit 41.5 % Mean Corpuscular Volume 93.3 FL Mean Corpuscular Hemoglobin 32.4 PG Mean Corpuscular Hemoglobin 34.7 % Concent Red Cell Distribution Width 14.4 % Platelet Count 293 TH/MM3 Mean Platelet Volume 8.4 FL Neutrophils (%) (Auto) 59.9 % Lymphocytes (%) (Auto) 31.9 % Monocytes (%) (Auto) 8.2 % Eosinophils (%) (Auto) 0.0 % Basophils (%) (Auto) 0.0 % Neutrophils # (Auto) 10.2 TH/MM3 Lymphocytes # (Auto) 5.4 TH/MM3 Monocytes # (Auto) 1.4 TH/MM3 Eosinophils # (Auto) 0.0 TH/MM3 Basophils # (Auto) 0.0 TH/MM3 CBC Comment AUTO DIFF Differential Total Cells 100 Counted Neutrophils % (Manual) 60 % Band Neutrophils % 1 % Lymphocytes % 30 % Monocytes % 9 % Neutrophils # (Manual) 10.4 TH/MM3 Differential Comment FINAL DIFF MANUAL Platelet Estimate NORMAL Platelet Morphology Comment NORMAL Red Cell Morphology Comment NORMAL Prothrombin Time 11.5 SEC Prothromb Time International 1.0 RATIO Ratio Activated Partial 23.7 SEC Thromboplast Time Sodium Level 139 MEQ/L Potassium Level 4.0 MEQ/L Chloride Level 104 MEQ/L Carbon Dioxide Level 26.1 MEQ/L Anion Gap 9 MEQ/L Blood Urea Nitrogen 17 MG/DL Creatinine 1.18 MG/DL Estimat Glomerular Filtration 64 ML/MIN Rate Random Glucose 145 MG/DL Lactic Acid Level 2.9 mmol/L 3.6 mmol/L Calcium Level 8.9 MG/DL Total Bilirubin 0.6 MG/DL Aspartate Amino Transf 206 U/L (AST/SGOT) Alanine Aminotransferase 437 U/L (ALT/SGPT) Alkaline Phosphatase 146 U/L Total Creatine Kinase 43 U/L Troponin I LESS THAN 0.02 NG/ML Total Protein 7.6 GM/DL Albumin 3.3 GM/DL Lipase 91 U/L Monoscreen NEG Urine Color YELLOW Urine Turbidity CLEAR Urine pH 7.0 Urine Specific Marcy 1.044 Urine Protein TRACE mg/dL Urine Glucose (UA) NEG mg/dL Urine Ketones NEG mg/dL Urine Occult Blood NEG Urine Nitrite NEG Urine Bilirubin NEG Urine Urobilinogen LESS THAN 2.0 MG/DL Urine Leukocyte Esterase NEG Urine RBC 1 /hpf Urine WBC LESS THAN 1 /hpf Urine Squamous Epithelial <1 /hpf Cells Urine Mucus FEW /lpf Microscopic Urinalysis Comment CULT NOT INDICATED Nasal Screen MRSA (PCR) MRSA NOT DETECTED Date/Time Procedure Status Source Growth 12/26/16 01:05 Aerobic Blood Culture Received Blood Peripheral Pending 12/26/16 01:05 Anaerobic Blood Culture Received Blood Peripheral Pending Physical Examination HEENT: PERRL; normocephalic; atraumatic; no jaundice. CHEST: CTA CARDIAC: RRR ABDOMEN: Soft, nondistended, diffuse TTP; no hepatosplenomegaly; bowel sounds are present in all four quadrants. EXTREMITIES: No clubbing, cyanosis, or edema. SKIN: Normal; no rash; no jaundice. LABOR[address] RO[address]: No focal deficits; alert and oriented times three. (Nisa Parker) Assessment and Plan Plan ASSESSMENT - abnormal US finding- suggestive multiple gallstones, pos sonographic murphys sign, CBD normal dimension. Unable to elicit meaningful hx of abd pain from pt. He does admit nausea. CT no acute process. GS following, consult pending. - elevated LFTs - AST 206, ALT 437, ALP 146 on admission. could be r/t gallstones vs hep c. Pt has reactive result to hep c ab from 2011 and genotype 1a/1b. ETOH test pending, hep panel pending. will rck hep c quant. mono neg. - leukocytosis - wbc 17.0 on admission vanchenrietta PLAN - await GS consult - hep c quant - monitor LFTs - continue abx - supportive care (Nisa Parker) Physician Comments Patient seen and examined Agree with above Continue current supportive care Monitor labs Will proceed with an MRCP so as to rule out choledocholithiasis (Merrill Segal MD) Nisa Parker Dec 26, 2016 16:08 Merrill Segal MD Dec 26, 2016 19:05
--- NOTE | 2016-12-26 16:23 | RADRPT ---
EXAM DATE/TIME: 12/26/2016 12:33 [facility] COMPARISON: No previous studies available for comparison. INDICATIONS : CVA. MEDICAL HISTORY : Hypertension. Renal cell ca. SURGICAL HISTORY : Nephrectomy, left. Splenectomy. ENCOUNTER: Initial ACUITY: 2 day PAIN SCORE: 0/10 LOCATION: head Please note a normal MRA of the brain does not entirely exclude the possibility of a small aneurysm, nor the possibility of distal intracranial vessel disease. TECHNIQUE: 3D time of flight MRA was performed. Source images, multiplanar STS MIP, and 3D volume MIP reconstru ctions were reviewed. FINDINGS: There is excellent visualization of the major intracranial arteries out to the second-order branch ve ssels. There is no evidence for aneurysm, vessel truncation or stenosis, and no evidence for vascula r malformation. Note is made of a hypoplastic 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 Intracranial circulation is otherwise widely patent. Sushant Tee MD on December 26, 2016 at 16:11 Board Certified Radiologist. This report was verified electronically.
--- NOTE | 2016-12-26 16:29 | RADRPT ---
EXAM DATE/TIME: 12/26/2016 12:33 [facility] COMPARISON: No previous studies available for comparison. INDICATIONS : Radiculopathy. MEDICAL HISTORY : Hypertension. Renal cell ca. SURGICAL HISTORY : Nephrectomy, left. Splenectomy. ENCOUNTER: Initial ACUITY: 2 day PAIN SCORE: 2/10 LOCATION: neck TECHNIQUE: Multiplanar, multisequence MRI examination of the cervical spine was performed. FINDINGS: VERTEBRAE: Normal vertebral body height. Homogeneous marrow signal. ALIGNMENT: No evidence of subluxation. CORD: Normal configuration and signal. POST FOSSA: The cerebellar tonsils are normal in position. C2-C3: The thecal sac has a normal configuration. There is no evidence of disc herniation or spinal canal s tenosis. The neural foramina are patent bilaterally. C3-C4: The thecal sac has a normal configuration. There is no evidence of disc herniation or spinal canal s tenosis. The neural foramina are patent bilaterally. C4-C5: Diffuse disc osteophyte complex and facet joint hypertrophy is noted resulting in mild spinal stenosi s and bilateral foraminal narrowing at this level. No focal disc herniation noted. C5-C6: The thecal sac has a normal configuration. There is no evidence of disc herniation or spinal canal s tenosis. The neural foramina are patent bilaterally. C6-C7: The thecal sac has a normal configuration. There is no evidence of disc herniation or spinal canal s tenosis. The neural foramina are patent bilaterally. C7-T1: The thecal sac has a normal configuration. There is no evidence of disc herniation or spinal canal s tenosis. The neural foramina are patent bilaterally. CONCLUSION: 1. Mild spinal stenosis and bilateral neuroforaminal narrowing at C4-5. 2. Cervical spondylosis at C4-5. Cezar Russell MD on December 26, 2016 at 16:24 Board Certified Radiologist. This report was verified electronically.
--- NOTE | 2016-12-26 18:19 | MG ---
cc: JEAN-PIERRE VILLASEÑOR Lab No: Date: 12/26/2016 Age: Sex: M Race: ELECTROENCEPHALOGRAM NUMBER [id number] INTRODUCTION Right upper quadrant pain. Renal cancer. Migraines. DESCRIPTION 1. Morphine. 2. Ativan. IMPRESSION A 10 Hz 60 microvolt symmetric posterior rhythm is seen. A lot of movement artifact is noted. Overall recording is synchronous and symmetric. No epileptiform or seizure activity is seen. Hyperventilation performed without significant change in the background. Photic stimulation performed without significant posterior driving. IMPRESSION A generally unremarkable recording. No evidence for focal or diffuse abnormality. MD FABIANO Lin/LOBO /5:28 PM /6:03 PM
[2016-12-26 22:09] LABS: ALCOHOL LESS THAN 3 MG/DL (0-5)
[2016-12-26 22:11] LABS: ALKALINE PHOSPHATASE 100 U/L (45-117); ALT (GPT) 362 U/L (12-78); ANION GAP 8 MEQ/L (5-15); AST (GOT) 188 U/L (15-37); BICARBONATE 28.2 MEQ/L (21.0-32.0); BLOOD UREA NITROGEN 14 MG/DL (7-18); CHLORIDE 98 MEQ/L (98-107); GLOMERULAR FILTRATION RATE 78 ML/MIN (>89); POTASSIUM 3.1 MEQ/L (3.5-5.1); SODIUM (NA) 134 MEQ/L (136-145); TOTAL BILIRUBIN ADULT 1.2 MG/DL (0.2-1.0)
--- NOTE | 2016-12-26 22:35 | RADRPT ---
EXAM DATE/TIME: 12/26/2016 21:24 [facility] COMPARISON: US ABDOMEN - GALLBLADDER, December 25, 2016, 23:00. CT ABDOMEN & PELVIS W CONTRAST, December 25, 2016, 2 2:30. INDICATIONS : Abdominal pain. MEDICAL HISTORY : Hypertension. Renal cell carcinoma. SURGICAL HISTORY : Nephrectomy, left. Splenectomy. ENCOUNTER: Subsequent ACUITY: 1 day PAIN SCORE: 8/10 LOCATION: abdomen TECHNIQUE: Multiplanar, multisequence magnetic resonance imaging of the abdomen was performed. High-resolution 3D dataset was utilized to reconstruct maximum-intensity projection (MIP) images. FINDINGS: INTRAHEPATIC BILE DUCTS: Within normal limits. No significant anatomical variant is present. EXTRAHEPATIC BILE DUCTS: The common bile duct measures 4 mm No stone or filling defect is identified. GALLBLADDER: Known stones by ultrasound but not well seen by MRI. Apparent pericholecystic fluid developing. LIVER: Normal size and signal intensity. No concerning liver lesion is identified on this non-contrast exam. PANCREAS: The main pancreatic duct is normal in size. There is no significant anatomical variant. Signal inte nsity is within normal limits. No mass is visualized on this non-contrast exam. OTHER: The remaining visualized structures demonstrate no acute abnormality on this non-contrast exam. CONCLUSION: Pericholecystic fluid. Apparent gallstones sonographically but well seen by MRI. No duct stone or lesa loli dilatation. Nate Herring MD on December 26, 2016 at 22:27 Board Certified Radiologist. This report was verified electronically.
[2016-12-27] VITALS (7 sets, daily range): BP systolic 133–147; BP diastolic 79–90; PULSE 56–79; RESP 18–20; TEMP 97.7–99; O2SAT 96–98
[2016-12-27] MEDS: VANCOMYCIN INJ 1,500 MG in SODIUM CHLORID 0.9% 500 ML INJ 500 ML IV SCH ×2 (01:09→14:36)
[2016-12-27] MEDS: CHLORHEXIDINE GLUCONATE 2 % 1 PACK (2 CLOTHS) TOP SCH (04:10)
[2016-12-27] MEDS: PIPERACIL-TAZO 4.5 GM PREMIX 100 ML IV SCH ×3 (05:09→20:52)
[2016-12-27] MEDS: SODIUM CHLOR 0.9% 1000 ML INJ 1,000 ML IV SCH ×2 (06:43→16:57)
--- NOTE | 2016-12-27 08:01 | RADRPT ---
EXAM DATE/TIME: 12/26/2016 12:33 [facility] COMPARISON: MRI BRAIN W/O CONTRAST, July 16, 2011, 8:45. INDICATIONS : CVA. MEDICAL HISTORY : Hypertension. Renal cell ca SURGICAL HISTORY : Nephrectomy, left. Splenectomy. ENCOUNTER: Initial ACUITY: 2 day PAIN SCORE: 0/10 LOCATION: head TECHNIQUE: Multiplanar, multisequence MRI of the brain was performed without contrast. FINDINGS: There is abnormal signal involving the cortex and immediate subcortical white matter involving the po sterior left parietal lobe paralleling the falx. Similar findings are seen involving the right transit mixer operator ior parietal lobe adjacent to the falx. This area shows high flair signal without restricted diffusio n. There is a tiny focus of blooming artifact involving the cortex of the left parietal lobe on the g radient echo sequence. I appreciate no mass effect. These changes are new from the prior exam. The ri ght cerebellar hemisphere shows similar signal characteristics. The remaining brain parenchyma shows normal signal with the exception of a few periventricular foci of high flair signal consistent with c hronic small vessel ischemic change. Ventricles are normal in size and shape. No acute hemorrhage. Mu cosal thickening without air-fluid level normal left maxillary sinus. Mastoid air cells are clear. CONCLUSION: 1. Abnormal signal involving the posterior parietal lobes bilaterally as well as the right cerebellar hemisphere. The findings are not consistent with acute stroke. This could represent gliosis from umu or trauma. I do feel that further characterization of these areas with gadolinium as needed to exclud e an infiltrating process. 2. Tiny focus of hemosiderin product associated with the left parietal lobe without acute hemorrhage. This likely represents an old area of hemorrhage. 3. Mild chronic small vessel ischemic change. 4. Left maxillary sinusitis. Sincere Bermudez Jr., MD on December 27, 2016 at 7:51 Board Certified Radiologist. This report was verified electronically.
[2016-12-27] MEDS: SODIUM CHLORIDE 0.9% FLUSH 10 ML FLUSH IV FLUSH SCH ×2 (09:00→20:52)
[2016-12-27 09:38] LABS: AUTOMATED NEUTROPHIL # 4.6 TH/MM3 (1.8-7.7); BASOPHIL % 0.2 % (0.0-2.0); EOSINOPHIL % 0.2 % (0.0-4.0); HEMATOCRIT 39.8 % (39.0-51.0); LYMPH % 53.3 % (9.0-44.0); LYMPHOCYTE # 6.8 TH/MM3 (1.0-4.8); MEAN CELL VOLUME 92.8 FL (80.0-100.0); MEAN CORPUSCULAR HGB CONC 34.5 % (32.0-36.0); MONO % 10.3 % (0.0-8.0); PLATELET COUNT 232 TH/MM3 (150-450); RED BLOOD COUNT 4.29 MIL/MM3 (4.50-5.90); RED CELL DISTRIBUTION WIDTH 14.7 % (11.6-17.2); WHITE BLOOD COUNT 12.8 TH/MM3 (4.0-11.0)
[2016-12-27 09:39] LABS: HEMO FLAGS AUTO DIFF
[2016-12-27 10:13] LABS: ALT (GPT) 365 U/L (12-78); ANION GAP 9 MEQ/L (5-15); AST (GOT) 205 U/L (15-37); BICARBONATE 28.2 MEQ/L (21.0-32.0); BLOOD UREA NITROGEN 13 MG/DL (7-18); CHLORIDE 97 MEQ/L (98-107); GLOMERULAR FILTRATION RATE 76 ML/MIN (>89); POTASSIUM 3.4 MEQ/L (3.5-5.1); SODIUM (NA) 134 MEQ/L (136-145)
[2016-12-27 10:16] LABS: ALKALINE PHOSPHATASE 92 U/L (45-117); TOTAL BILIRUBIN ADULT 1.3 MG/DL (0.2-1.0)
[2016-12-27 10:18] LABS: BANDS 3 % (0-6); EOSINOPHILS 1 % (0-4); NEUTROPHIL # MANUAL DIFF 4.4 TH/MM3 (1.8-7.7); PLATELET ESTIMATE SMEAR NORMAL (NORMAL); POLYS (SEG NEUTROPHILS) 31 % (16-70); WBC DIFF SAMPLE 100
[2016-12-27 10:19] LABS: PLATELET MORPHOLOGY NORMAL (NORMAL); SCAN/DIFF FINAL DIFF MANUAL
--- NOTE | 2016-12-27 12:30 | HHI.PR ---
Subjective Remarks Follow-up for abdominal pain and neurological symptoms Patient son and her in law are at the bedside. Patient stated that he feels a lot better today. He stated that his headache has improved. Patient also stated that his abdominal pain has improved. Denying nausea or vomiting. Cellulitis has also improved. He remains afebrile. He has no other complaints. Patient stated that it is okay to discuss private information in front of his family members. Objective Vitals Vital Signs Date Time Temp Pulse Resp B/P Pulse Ox O2 Delivery O2 Flow Rate FiO2 12/27/16 12:00 98.9 63 20 133/79 98 12/27/16 08:23 99.0 57 20 136/79 98 12/27/16 04:06 98.4 56 20 136/83 96 12/27/16 00:00 98.6 60 20 136/90 97 12/26/16 20:10 98.6 69 19 136/82 96 12/26/16 19:30 65 12/26/16 18:19 59 12/26/16 15:04 98.6 88 18 107/55 93 I/O 12/26/16 12/26/16 12/26/16 12/27/16 12/27/16 12/27/16 07:00 15:00 23:00 07:00 15:00 23:00 Intake Total 306 ml 1342 ml Output Total 450 ml 475 ml 600 ml Balance -144 ml -475 ml 742 ml Intake IV Total 306 ml 1342 ml Output Urine Total 450 ml 475 ml 600 ml Stool Total 0 ml # Bowel Movements 0 Result Diagram: 12/27/16 0830 12/27/16 0830 Imaging Last Impressions Head Magnetic Resonance Angiography 12/26/16 0000 Signed Impressions: Service Date/Time: Monday, December 26, 2016 12:33 - CONCLUSION: 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 Intracranial circulation is otherwise widely patent. Sushant Tee MD Head CT 12/26/16 0000 Signed Impressions: Service Date/Time: Monday, December 26, 2016 04:06 - CONCLUSION: Negative noncontrast CT brain. Sincere Jasso MD Cholangiopancreatography MRI 12/26/16 0000 Signed Impressions: Service Date/Time: Monday, December 26, 2016 21:24 - CONCLUSION: Pericholecystic fluid. Apparent gallstones sonographically but well seen by MRI. No duct stone or ductal dilatation. Nate Herring MD Cervical Spine MRI 12/26/16 0000 Signed Impressions: Service Date/Time: Monday, December 26, 2016 12:33 - CONCLUSION: 1. Mild spinal stenosis and bilateral neuroforaminal narrowing at C4-5. 2. Cervical spondylosis at C4-5. Cezar Russell MD Brain MRI 12/26/16 0000 Signed Impressions: Service Date/Time: Monday, December 26, 2016 12:33 - CONCLUSION: 1. Abnormal signal involving the posterior parietal lobes bilaterally as well as the right cerebellar hemisphere. The findings are not consistent with acute stroke. This could represent gliosis from prior trauma. I do feel that further characterization of these areas with gadolinium as needed to exclude an infiltrating process. 2. Tiny focus of hemosiderin product associated with the left parietal lobe without acute hemorrhage. This likely represents an old area of hemorrhage. 3. Mild chronic small vessel ischemic change. 4. Left maxillary sinusitis. Sincere Bermudez Jr., MD Chest X-Ray [id number]/25/162108 Signed Impressions: Service Date/Time: Sunday, December 25, 2016 21:15 - CONCLUSION: No significant change mild right lower lobe infiltrate. Nate Herring MD Abdomen/Pelvis CT [id number]/162108 Signed Impressions: Service Date/Time: Sunday, December 25, 2016 22:30 - CONCLUSION: No acute abnormality demonstrated. 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 Lower lumbar degenerative changes as above. Nate Herring MD Gall Bladder Ultrasound 12/25/16 0000 Signed Impressions: Service Date/Time: Sunday, December 25, 2016 23:00 - CONCLUSION: Echogenic foci within the gallbladder lumen suggests multiple stones and there is a positive sonographic Crook's sign. Normal dimension common hepatic duct. Sincere Jasso MD Objective Remarks GENERAL: in NAD SKIN: Right dorsal of the hand wound with mild erythema, minimal drainage. Left knee with mild erythema on the left medial aspect of the kneecap. Full range of motion of the left knee. CARDIOVASCULAR: Regular rate and rhythm without murmurs, gallops, or rubs. RESPIRATORY: Breath sounds equal bilaterally. No accessory muscle use. GASTROINTESTINAL: Abdomen soft, nondistended. Positive tenderness palpation the right upper quadrant and epigastric area but has improved.. No peritoneal signs. MUSCULOSKELETAL: No cyanosis, or edema. BACK: Nontender without obvious deformity. No CVA tenderness. NEURO: AAO X 3. Sensation and motor grossly intact. Medications and IVs Current Medications Morphine Sulfate (Morphine Inj) 4 mg ONCE ONCE IV PUSH Last administered on 21:25; Start 12/25/16 at 21:15; Stop 12/25/16 at 21:16; Status DC Ondansetron HCl 4 mg 4 mg ONCE ONCE IVP Last administered on 12/25/16 21:26; Start 12/25/16 at 21:15; Stop 12/25/16 at 21:16; Status DC Sodium Chloride (NS 1000 ml Inj) 1,000 ml @ 1,000 mls/hr Q1H IV Last administered on 12/25/16 21:25; Start 12/25/16 at 21:09; Stop 12/25/16 at 22:08 ; Status DC Morphine Sulfate (Morphine Inj) 4 mg ONCE ONCE IV PUSH Last administered on 22:03; Start 12/25/16 at 22:00; Stop 12/25/16 at 22:01; Status DC Hydromorphone HCl (Dilaudid Pf Inj) 1 mg ONCE ONCE IV PUSH Last administered on 12/25/16 22:23; Start 12/25/16 at 22:15; Stop 12/25/16 at 22:16; Status DC Iohexol (Omnipaque 350 Inj) 50 ml STK-MED ONCE IV Last administered on 22:32; Start 12/25/16 at 22:32; Stop 12/25/16 at 22:33; Status DC Ondansetron HCl (Zofran Inj) 4 mg ONCE ONCE IV PUSH Last administered on 22:48; Start 12/25/16 at 23:00; Stop 12/25/16 at 23:01; Status DC Hydromorphone HCl (Dilaudid Pf Inj) 1 mg ONCE ONCE IV PUSH Last administered on 12/25/16 23:18; Start 12/25/16 at 23:15; Stop 12/25/16 at 23:16; Status DC Promethazine HCl 25 mg 25 mg ONCE ONCE IM Last administered on 12/25/16 23:18 ; Start 12/25/16 at 23:15; Stop 12/25/16 at 23:16; Status DC Sodium Chloride 1,000 ml @ 999 mls/hr BOLUS ONCE IV Last administered on 12/26 01:08; Start 12/26/16 at 00:45; Stop 12/26/16 at 01:45; Status DC Piperacillin Sod/ Tazobactam Sod (Zosyn 4.5 Gm Premix) 100 ml @ 200 mls/hr ONCE ONCE IV Last administered on 12/26/16 01:08; Start 12/26/16 at 00:45; Stop 12/26/16 at 01:14; Status DC Hydromorphone HCl 2 mg 2 mg ONCE ONCE IV PUSH Last administered on 12/26/16 01:09; Start 12/26/16 at 00:45; Stop 12/26/16 at 00:48; Status DC Sodium Chloride (NS 1000 ml Inj) 1,000 ml @ 100 mls/hr Q10H IV Last administered on 12/26/16 19:59; Start 12/26/16 at 00:57 Sodium Chloride (NS Flush) 2 ml UNSCH PRN IV FLUSH FLUSH AFTER USING IV ACCESS ; Start 12/26/16 at 01:00 Sodium Chloride (NS Flush) 2 ml BID IV FLUSH Last administered on 12/26/16 19: 58; Start 12/26/16 at 09:00 Ondansetron HCl (Zofran Inj) 4 mg Q6H PRN IVP NAUSEA OR VOMITING; Start at 01:00 Naloxone HCl 0.4 mg 0.4 mg UNSCH PRN IV SEE LABEL COMMENTS; Start 12/26/16 at 01:00 Piperacillin Sod/ Tazobactam Sod (Zosyn 4.5 Gm Premix) 100 ml @ 200 mls/hr Q6H IV Last administered on 12/27/16 12:06; Start 12/26/16 at 06:00 Hydralazine HCl (Apresoline Inj) 10 mg ONCE ONCE IV PUSH Last administered on 12/26/16 03:13; Start 12/26/16 at 03:15; Stop 12/26/16 at 03:16; Status DC Lorazepam 1 mg 1 mg Q15M PRN IV PUSH seizrues Last administered on 12/26/16 04 :10; Start 12/26/16 at 04:00 Pharmacy Profile Note 0 ml @ 0 mls/hr UNSCH OTHER ; Start 12/26/16 at 04:00; Stop 12/26/16 at 09:44; Status DC Vancomycin HCl/ Sodium Chloride (Vancomycin Inj/ NS 250 ml Inj) 262.5 ml @ 250 mls/hr ONCE ONCE IV Last administered on 12/26/16 05:00; Start 12/26/16 at 05 :00; Stop 12/26/16 at 06:02; Status DC Miscellaneous Information 1 [id number] Last administered on 12/26/16 05:00; Start 12/26/16 at 05:00 Chlorhexidine Gluconate (Chlorhexidine 2% Cloth) 3 pack Taper DAILY@04 TOP ; Start 12/27/16 at 04:00; Stop 12/23/17 at 03:59 Chlorhexidine Gluconate 3 pack 3 pack UNSCH PRN TOP HYGIENIC CARE; Start at 05:00 Vancomycin HCl/ Sodium Chloride (Vancomycin Inj/ NS 500 ml Inj) 515 ml @ 250 mls/hr Q12H IV ; Start 12/26/16 at 13:00; Stop 12/26/16 at 13:00; Status DC Miscellaneous Information SPECIFIC LAB TO BE DRAWN:PHARMACY CONSULT DATE TO... ONCE ONCE .XX ; Start 12/27/16 at 12:45; Stop 12/27/16 at 12:46; Status Cancel Amlodipine Besylate 10 mg 10 mg DAILY PO Last administered on 12/27/16 09:49; Start 12/26/16 at 10:00 Pharmacy Profile Note 0 ml @ 0 mls/hr UNSCH OTHER ; Start 12/26/16 at 12:00 Vancomycin HCl/ Sodium Chloride (Vancomycin Inj/ NS 500 ml Inj) 515 ml @ 250 mls/hr Q12H IV Last administered on 12/27/16 14:36; Start 12/26/16 at 14:00 Miscellaneous Information SPECIFIC LAB TO BE DRAWN:VANCOMYCIN TROUGH DATE TO... ONCE ONCE .XX ; Start 12/28/16 at 01:45; Stop 12/28/16 at 01:46 Oxycodone HCl (Roxicodone) 10 mg Q4H PRN PO PAIN 8-10 Last administered on 12/27t 14:38; Start 12/26/16 at 19:45 Oxycodone HCl (Roxicodone) 5 mg Q4H PRN PO PAIN 1-7; Start 12/26/16 at 19:45 A/P Problem List: (1) Transaminitis ICD Code: R74.0 Status: Acute (2) Seizure ICD Code: R56.9 Status: Acute (3) Leukocytosis ICD Code: D72.829 Status: Acute (4) Lactic acidosis ICD Code: E87.2 Status: Acute Assessment and Plan 56 y/o male with a history of HTN, asthma, Gerd, and renal cell carcinoma presented to the ED with complaints of nausea, vomiting and abdominal pain. During examination patient began to have a seizure and became post-ictal. Transaminitis, AST 206, ALT 437 Gallbladder US reviewed and shows Echogenic foci within the gallbladder lumen suggests multiple stones and there is a positive sonographic Crook's sign. Normal dimension common hepatic duct. -Patient is symptomatic with elevated WBC initially. WBC is improving. -GI consulted and following. -Ethanol level negative. Positive for hepatitis C. LFTs mildly elevated today. -MRCP showed pericholecystic fluid. Apparent gallstones sonographically but well seen by MRI. No duct stone or ductal dilatation. -Patient started on IV Zosyn. -Continue with current regimen. Per general surgery once patient is medically stable he will have surgery. Seizure, acute, new onset, no documented history of seizures -CT brain negative. Troponin negative. -Neurologist consulted. Maybe more syncope. -EEG negative. MRI shows an old intracranial hemorrhage in which patient stated that he does have a history of having trauma to his head. Abnormal signal involving the posterior parietal lobes bilaterally as well as the right cerebellar hemisphere. The findings are not consistent with acute stroke. This could represent gliosis from prior trauma. Headache -Maybe migraine headache. See MRI as above. Improving. Also may be secondary to sinusitis. Patient is on antibiotics. Will give him Flonase. left hand cellulitis/abscess status post I&D and left cellulitis of the lower extremity -Improving on vancomycin. Will continue vancomycin for another day and if he continues to have drastic improvement can transition to oral medication. Hypertensive urgency -Secondary to noncompliance. -Patient is now normotensive. Continue with amlodipine. DVT prophylaxis: SCDs Michel Clinea Serina MD Dec 27, 2016 12:30
[2016-12-27] MEDS ORDERED: PHARMACY ORDERED LAB ONE (12:45)
--- NOTE | 2016-12-27 15:52 | HHI.GIFU ---
Subjective Remarks Resting in bed in no distress. C/O headache and back pain. When asked specifically about abdominal pain, he does c/o right sided abdominal pain. Mild nausea. (Cat Mast) Objective Vitals I&O Vital Signs Date Time Temp Pulse Resp B/P Pulse Ox O2 Delivery O2 Flow Rate FiO2 12/27/16 12:00 98.9 63 20 133/79 98 12/27/16 08:23 99.0 57 20 136/79 98 12/27/16 04:06 98.4 56 20 136/83 96 12/27/16 00:00 98.6 60 20 136/90 97 12/26/16 20:10 98.6 69 19 136/82 96 12/26/16 19:30 65 12/26/16 18:19 59 I/O 12/26/16 12/26/16 12/26/16 12/27/16 12/27/16 12/27/16 06:59 14:59 22:59 06:59 14:59 22:59 Intake Total 306 ml 1342 ml Output Total 450 ml 475 ml 600 ml 600 ml Balance -144 ml -475 ml 742 ml -600 ml Intake IV Total 306 ml 1342 ml Output Urine Total 450 ml 475 ml 600 ml 600 ml Stool Total 0 ml # Bowel Movements 0 Laboratory Laboratory Tests Test 12/26/16 12/27/16 20:39 08:30 Sodium Level 134 134 Potassium Level 3.1 3.4 Chloride Level 98 97 Carbon Dioxide Level 28.2 28.2 Anion Gap 8 9 Blood Urea Nitrogen 14 13 Creatinine 1.00 1.02 Estimat Glomerular Filtration 78 76 Rate Random Glucose 95 80 Calcium Level 8.2 8.7 Total Bilirubin 1.2 1.3 Aspartate Amino Transf 188 205 (AST/SGOT) Alanine Aminotransferase 362 365 (ALT/SGPT) Alkaline Phosphatase 100 92 Troponin I LESS THAN 0.02 Total Protein 6.4 6.7 Albumin 2.7 2.7 Ethyl Alcohol Level LESS THAN 3 Hepatitis A IgM Antibody NEGATIVE Hepatitis B Surface Antigen NEGATIVE Hepatitis B Core IgM Antibody NEGATIVE Hepatitis C Antibody REACTIVE White Blood Count 12.8 Red Blood Count 4.29 Hemoglobin 13.7 Hematocrit 39.8 Mean Corpuscular Volume 92.8 Mean Corpuscular Hemoglobin 32.0 Mean Corpuscular Hemoglobin 34.5 Concent Red Cell Distribution Width 14.7 Platelet Count 232 Mean Platelet Volume 8.5 Neutrophils (%) (Auto) 36.0 Lymphocytes (%) (Auto) 53.3 Monocytes (%) (Auto) 10.3 Eosinophils (%) (Auto) 0.2 Basophils (%) (Auto) 0.2 Neutrophils # (Auto) 4.6 Lymphocytes # (Auto) 6.8 Monocytes # (Auto) 1.3 Eosinophils # (Auto) 0.0 Basophils # (Auto) 0.0 CBC Comment AUTO DIFF Differential Total Cells 100 Counted Neutrophils % (Manual) 31 Band Neutrophils % 3 Lymphocytes % 52 Monocytes % 13 Eosinophils % 1 Neutrophils # (Manual) 4.4 Differential Comment FINAL DIFF MANUAL Platelet Estimate NORMAL Platelet Morphology Comment NORMAL Date/Time Procedure Status Source Growth 12/26/16 01:05 Aerobic Blood Culture - Preliminary Resulted Blood Peripheral NO GROWTH IN 1 DAY 12/26/16 01:05 Anaerobic Blood Culture - Preliminary Resulted Blood Peripheral NO GROWTH IN 1 DAY Imaging Last Impressions Head Magnetic Resonance Angiography 12/26/16 0000 Signed Impressions: Service Date/Time: Monday, December 26, 2016 12:33 - CONCLUSION: 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 Intracranial circulation is otherwise widely patent. Sushant Tee MD Head CT 12/26/16 0000 Signed Impressions: Service Date/Time: Monday, December 26, 2016 04:06 - CONCLUSION: Negative noncontrast CT brain. Sincere Jasso MD Cholangiopancreatography MRI 12/26/16 0000 Signed Impressions: Service Date/Time: Monday, December 26, 2016 21:24 - CONCLUSION: Pericholecystic fluid. Apparent gallstones sonographically but well seen by MRI. No duct stone or ductal dilatation. Nate Herring MD Cervical Spine MRI 12/26/16 0000 Signed Impressions: Service Date/Time: Monday, December 26, 2016 12:33 - CONCLUSION: 1. Mild spinal stenosis and bilateral neuroforaminal narrowing at C4-5. 2. Cervical spondylosis at C4-5. Cezar Russell MD Brain MRI 12/26/16 0000 Signed Impressions: Service Date/Time: Monday, December 26, 2016 12:33 - CONCLUSION: 1. Abnormal signal involving the posterior parietal lobes bilaterally as well as the right cerebellar hemisphere. The findings are not consistent with acute stroke. This could represent gliosis from prior trauma. I do feel that further characterization of these areas with gadolinium as needed to exclude an infiltrating process. 2. Tiny focus of hemosiderin product associated with the left parietal lobe without acute hemorrhage. This likely represents an old area of hemorrhage. 3. Mild chronic small vessel ischemic change. 4. Left maxillary sinusitis. Sincere Bermudez Jr., MD Chest X-Ray [id number] Signed Impressions: Service Date/Time: Sunday, December 25, 2016 21:15 - CONCLUSION: No significant change mild right lower lobe infiltrate. Nate Herring MD Abdomen/Pelvis CT [id number]/[id number] Signed Impressions: Service Date/Time: Sunday, December 25, 2016 22:30 - CONCLUSION: No acute abnormality demonstrated. 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 Lower lumbar degenerative changes as above. Nate Herring MD Gall Bladder Ultrasound 12/25/16 0000 Signed Impressions: Service Date/Time: Sunday, December 25, 2016 23:00 - CONCLUSION: Echogenic foci within the gallbladder lumen suggests multiple stones and there is a positive sonographic Crook's sign. Normal dimension common hepatic duct. Sincere Jasso MD Physical Exam HEENT: Normocephalic; atraumatic; no jaundice. CHEST: CTA CARDIAC: RRR. ABDOMEN: Soft, nondistended, RUQ tenderness; No hepatosplenomegaly; bowel sounds are present in all four quadrants. EXTREMITIES: No clubbing, cyanosis, or edema. SKIN: Normal; no rash; no jaundice. 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 (Cat Mast [facility]) Assessment and Plan Plan ASSESSMENT - Elevated LFTs. ? Hx HCV. States he was told in the past that he had it and then called and told he had false positive. He has RUQ pain with cholelithiasis and pericholecystic fluid. Gall Bladder Ultrasound (12/25/16)----> Echogenic foci within the gallbladder lumen suggests multiple stones and there is a positive sonographic Crook's sign. Normal dimension common hepatic duct. Abdomen/ Pelvis CT (12/25/16)---> No acute abnormality demonstrated. 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 Lower lumbar degenerative changes as above. MRCP (12/26/16)---> Pericholecystic fluid. Apparent gallstones sonographically but well seen by MRI. No duct stone or ductal dilatation. T. Bili 1.3, AST 205, ALT 365, Alk Phosph 92. GS following, possible cholecystectomy once stable. - Cholelithiasis, Pericholecystic fluid. GS following. Possible lap. emelyn when stable. - Syncopal episode, hypertensive emergency. Head CT (12/26/16)----> Negative noncontrast CT brain. Brain MRI (12/26/16)----> 1. Abnormal signal involving the posterior parietal lobes bilaterally as well as the right cerebellar hemisphere. The findings are not consistent with acute stroke. This could represent gliosis from prior trauma. I do feel that further characterization of these areas with gadolinium as needed to exclude an infiltrating process. 2. Tiny focus of hemosiderin product associated with the left parietal lobe without acute hemorrhage. This likely represents an old area of hemorrhage. 3. Mild chronic small vessel ischemic change. 4. Left maxillary Head Magnetic Resonance Angiography (12/26/16)----> 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 Intracranial circulation is otherwise widely patent. sinusitis. EEG unremarkable. Neurology following. - Leukocytosis. Improved, WBC 12.8. BCx no growth 1 day. Vanco, zosyn PLAN - Clear liquids - HCV Genotype, viral load - AFP level - RAFFAELE, ASMA, AMA - Ferritin, Iron saturation - Ceruloplasmin, Alpha 1 antitrypsin - Monitor CBC, LFTs - Cont. Abx - No indication for ercp at this time- no biliary dilatation on mrcp - GS following, possible lap. emelyn. once stable from neurology standpoint, liver enzymes worked up - Supportive care - Pt seen and examined by Dr. Segal and myself and this note is written on his behalf (Cat Mast) Physician Comments Patient seen and examined Agree with above Continue with current supportive care Monitor labs (Merrill Segal MD) Cat Mast Dec 27, 2016 15:52 Merrill Segal MD Dec 27, 2016 18:24
--- NOTE | 2016-12-27 18:19 | HHI.PR ---
Subjective Subjective Notes Doing good Pain in abdomen better today Objective Vitals/I&O Vital Signs Date Time Temp Pulse Resp B/P Pulse Ox O2 Delivery O2 Flow Rate FiO2 12/27/16 15:51 98.6 79 18 147/90 97 12/26/16 03:49 Nasal Cannula 3 Labs Laboratory Tests Test 12/26/16 12/27/16 20:39 08:30 Sodium Level 134 134 Potassium Level 3.1 3.4 Chloride Level 98 97 Carbon Dioxide Level 28.2 28.2 Anion Gap 8 9 Blood Urea Nitrogen 14 13 Creatinine 1.00 1.02 Estimat Glomerular Filtration 78 76 Rate Random Glucose 95 80 Calcium Level 8.2 8.7 Total Bilirubin 1.2 1.3 Aspartate Amino Transf 188 205 (AST/SGOT) Alanine Aminotransferase 362 365 (ALT/SGPT) Alkaline Phosphatase 100 92 Troponin I LESS THAN 0.02 Total Protein 6.4 6.7 Albumin 2.7 2.7 Ethyl Alcohol Level LESS THAN 3 Hepatitis A IgM Antibody NEGATIVE Hepatitis B Surface Antigen NEGATIVE Hepatitis B Core IgM Antibody NEGATIVE Hepatitis C Antibody REACTIVE White Blood Count 12.8 Red Blood Count 4.29 Hemoglobin 13.7 Hematocrit 39.8 Mean Corpuscular Volume 92.8 Mean Corpuscular Hemoglobin 32.0 Mean Corpuscular Hemoglobin 34.5 Concent Red Cell Distribution Width 14.7 Platelet Count 232 Mean Platelet Volume 8.5 Neutrophils (%) (Auto) 36.0 Lymphocytes (%) (Auto) 53.3 Monocytes (%) (Auto) 10.3 Eosinophils (%) (Auto) 0.2 Basophils (%) (Auto) 0.2 Neutrophils # (Auto) 4.6 Lymphocytes # (Auto) 6.8 Monocytes # (Auto) 1.3 Eosinophils # (Auto) 0.0 Basophils # (Auto) 0.0 CBC Comment AUTO DIFF Differential Total Cells 100 Counted Neutrophils % (Manual) 31 Band Neutrophils % 3 Lymphocytes % 52 Monocytes % 13 Eosinophils % 1 Neutrophils # (Manual) 4.4 Differential Comment FINAL DIFF MANUAL Platelet Estimate NORMAL Platelet Morphology Comment NORMAL Date/Time Procedure Status Source Growth 12/26/16 01:05 Aerobic Blood Culture - Preliminary Resulted Blood Peripheral NO GROWTH IN 1 DAY 12/26/16 01:05 Anaerobic Blood Culture - Preliminary Resulted Blood Peripheral NO GROWTH IN 1 DAY Radiology Last 48 hours Impressions Head Magnetic Resonance Angiography 12/26/16 0000 Signed Impressions: Service Date/Time: Monday, December 26, 2016 12:33 - CONCLUSION: 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 Intracranial circulation is otherwise widely patent. Sushant Tee MD Head CT 12/26/16 Signed Impressions: Service Date/Time: Monday, December 26, 2016 04:06 - CONCLUSION: Negative noncontrast CT brain. Sincere Jasso MD Cholangiopancreatography MRI 12/26/16 Signed Impressions: Service Date/Time: Monday, December 26, 2016 21:24 - CONCLUSION: Pericholecystic fluid. Apparent gallstones sonographically but well seen by MRI. No duct stone or ductal dilatation. Nate Herring MD Cervical Spine MRI 12/26/16 Signed Impressions: Service Date/Time: Monday, December 26, 2016 12:33 - CONCLUSION: 1. Mild spinal stenosis and bilateral neuroforaminal narrowing at C4-5. 2. Cervical spondylosis at C4-5. Cezar Russell MD Brain MRI 12/26/16 Signed Impressions: Service Date/Time: Monday, December 26, 2016 12:33 - CONCLUSION: 1. Abnormal signal involving the posterior parietal lobes bilaterally as well as the right cerebellar hemisphere. The findings are not consistent with acute stroke. This could represent gliosis from prior trauma. I do feel that further characterization of these areas with gadolinium as needed to exclude an infiltrating process. 2. Tiny focus of hemosiderin product associated with the left parietal lobe without acute hemorrhage. This likely represents an old area of hemorrhage. 3. Mild chronic small vessel ischemic change. 4. Left maxillary sinusitis. Sincere Bermudez Jr., MD Chest X-Ray [id number]/25/162108 Signed Impressions: Service Date/Time: Sunday, December 25, 2016 21:15 - CONCLUSION: No significant change mild right lower lobe infiltrate. Nate Herring MD Abdomen/Pelvis CT [id number]/25/162108 Signed Impressions: Service Date/Time: Sunday, December 25, 2016 22:30 - CONCLUSION: No acute abnormality demonstrated. 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 Lower lumbar degenerative changes as above. Nate Herring MD Cardiovascular: Regular Lungs: Clear Abdomen: Other (large well healed midline incision; non distended; RUQ tenderness with palpation ) Extremities: No edema A/P Assessment and Plan 56 year old male s/p seizure with symptomatic cholelithiasis -MRCP shows not duct stone or dilation -Clear liquids -Monitor LFTs -Possible lap emelyn when medical issues resolved Gabriela Gipson JUDGE CLERK Dec 27, 2016 18:19
[2016-12-28] VITALS (7 sets, daily range): BP systolic 116–141; BP diastolic 74–86; PULSE 61–83; RESP 16–20; TEMP 97.9–99.5; O2SAT 95–99
[2016-12-28 00:11] LABS: TRANSFERRIN IRON PROFILE 247 MG/DL (200-360)
[2016-12-28 00:14] LABS: FERRITIN 889 NG/ML (26-388)
[2016-12-28] MEDS: PIPERACIL-TAZO 4.5 GM PREMIX 100 ML IV SCH ×4 (00:41→18:22)
[2016-12-28] MEDS ORDERED: PHARMACY ORDERED LAB ONE (01:45)
[2016-12-28 03:16] LABS: HEMATOCRIT 40.4 % (39.0-51.0); MEAN CELL VOLUME 91.4 FL (80.0-100.0); MEAN CORPUSCULAR HEMOGLOBIN 32.7 PG (27.0-34.0); MEAN CORPUSCULAR HGB CONC 35.8 % (32.0-36.0); PLATELET COUNT 226 TH/MM3 (150-450); RED BLOOD COUNT 4.42 MIL/MM3 (4.50-5.90); RED CELL DISTRIBUTION WIDTH 14.1 % (11.6-17.2); REVIEW FLAG FINAL
[2016-12-28 03:39] LABS: ALT (GPT) 427 U/L (12-78); ANION GAP 7 MEQ/L (5-15); AST (GOT) 299 U/L (15-37); BLOOD UREA NITROGEN 14 MG/DL (7-18); CHLORIDE 98 MEQ/L (98-107); GLOMERULAR FILTRATION RATE 74 ML/MIN (>89); POTASSIUM 3.7 MEQ/L (3.5-5.1); SODIUM (NA) 135 MEQ/L (136-145)
[2016-12-28 03:41] LABS: ALKALINE PHOSPHATASE 101 U/L (45-117); TOTAL BILIRUBIN ADULT 1.3 MG/DL (0.2-1.0)
[2016-12-28] MEDS: VANCOMYCIN INJ 1,500 MG in SODIUM CHLORID 0.9% 500 ML INJ 500 ML IV SCH (04:00)
[2016-12-28] MEDS: SODIUM CHLOR 0.9% 1000 ML INJ 1,000 ML IV SCH ×2 (04:00→18:22)
[2016-12-28] MEDS: CHLORHEXIDINE GLUCONATE 2 % 1 PACK (2 CLOTHS) TOP SCH (04:00)
[2016-12-28] MEDS: SODIUM CHLORIDE 0.9% FLUSH 10 ML FLUSH IV FLUSH SCH ×2 (09:31→21:00)
--- NOTE | 2016-12-28 09:44 | HHI.GIFU ---
Subjective Remarks Resting in bed. Continues to have RUQ pain, no change. No nausea. Tolerating clears and requesting diet be advanced. (Cat Mast) Objective Vitals I&O Vital Signs Date Time Temp Pulse Resp B/P Pulse Ox O2 Delivery O2 Flow Rate FiO2 12/28/16 08:00 99.5 67 16 116/74 96 12/28/16 05:00 99.0 68 20 122/78 95 12/28/16 00:00 99.1 68 18 122/81 96 12/27/16 20:31 97.7 65 20 137/86 96 12/27/16 15:51 98.6 79 18 147/90 97 12/27/16 12:30 56 12/27/16 12:00 98.9 63 20 133/79 98 I/O 12/27/16 12/27/16 12/27/16 12/28/16 12/28/16 12/28/16 07:00 15:00 23:00 07:00 15:00 23:00 Intake Total 1342 ml Output Total 600 ml 600 ml 1000 ml Balance 742 ml -600 ml -1000 ml Intake IV Total 1342 ml Output Urine Total 600 ml 600 ml 1000 ml # Bowel Movements 0 0 Laboratory Laboratory Tests Test 12/28/16 03:04 White Blood Count 11.0 Red Blood Count 4.42 Hemoglobin 14.5 Hematocrit 40.4 Mean Corpuscular Volume 91.4 Mean Corpuscular Hemoglobin 32.7 Mean Corpuscular Hemoglobin 35.8 Concent Red Cell Distribution Width 14.1 Platelet Count 226 Mean Platelet Volume 7.8 Sodium Level 135 Potassium Level 3.7 Chloride Level 98 Carbon Dioxide Level 30.0 Anion Gap 7 Blood Urea Nitrogen 14 Creatinine 1.05 Estimat Glomerular Filtration 74 Rate Random Glucose 86 Calcium Level 8.6 Total Bilirubin 1.3 Aspartate Amino Transf 299 (AST/SGOT) Alanine Aminotransferase 427 (ALT/SGPT) Alkaline Phosphatase 101 Total Protein 7.1 Albumin 2.7 Tumor Marker Alpha Fetoprotein 3.4 Vancomycin Level Trough 18.9 Date/Time Procedure Status Source Growth 12/26/16 01:05 Aerobic Blood Culture - Preliminary Resulted Blood Peripheral NO GROWTH IN 1 DAY 12/26/16 01:05 Anaerobic Blood Culture - Preliminary Resulted Blood Peripheral NO GROWTH IN 1 DAY Imaging Last Impressions Head Magnetic Resonance Angiography 8/15/17 0000 Signed Impressions: Service Date/Time: Monday, December 26, 2016 12:33 - CONCLUSION: 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 Intracranial circulation is otherwise widely patent. Sushant Tee MD Head CT 12/26/16 Signed Impressions: Service Date/Time: Monday, December 26, 2016 04:06 - CONCLUSION: Negative noncontrast CT brain. Sincere Jasso MD Cholangiopancreatography MRI 12/26/16 Signed Impressions: Service Date/Time: Monday, December 26, 2016 21:24 - CONCLUSION: Pericholecystic fluid. Apparent gallstones sonographically but well seen by MRI. No duct stone or ductal dilatation. Nate Herring MD Cervical Spine MRI 12/26/16 Signed Impressions: Service Date/Time: Monday, December 26, 2016 12:33 - CONCLUSION: 1. Mild spinal stenosis and bilateral neuroforaminal narrowing at C4-5. 2. Cervical spondylosis at C4-5. Cezar Russell MD Brain MRI 12/26/16 Signed Impressions: Service Date/Time: Monday, December 26, 2016 12:33 - CONCLUSION: 1. Abnormal signal involving the posterior parietal lobes bilaterally as well as the right cerebellar hemisphere. The findings are not consistent with acute stroke. This could represent gliosis from prior trauma. I do feel that further characterization of these areas with gadolinium as needed to exclude an infiltrating process. 2. Tiny focus of hemosiderin product associated with the left parietal lobe without acute hemorrhage. This likely represents an old area of hemorrhage. 3. Mild chronic small vessel ischemic change. 4. Left maxillary sinusitis. Sincere Bermudez Jr., MD Chest X-Ray [id number]/162108 Signed Impressions: Service Date/Time: Sunday, December 25, 2016 21:15 - CONCLUSION: No significant change mild right lower lobe infiltrate. Nate Herring MD Abdomen/Pelvis CT [id number]/162108 Signed Impressions: Service Date/Time: Sunday, December 25, 2016 22:30 - CONCLUSION: No acute abnormality demonstrated. 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 Lower lumbar degenerative changes as above. Nate Herring MD Gall Bladder Ultrasound 12/25/16 Signed Impressions: Service Date/Time: Sunday, December 25, 2016 23:00 - CONCLUSION: Echogenic foci within the gallbladder lumen suggests multiple stones and there is a positive sonographic Crook's sign. Normal dimension common hepatic duct. Sincere Jasso MD Physical Exam HEENT: Normocephalic; atraumatic; no jaundice. CHEST: CTA CARDIAC: RRR. ABDOMEN: Soft, nondistended, RUQ tenderness; No hepatosplenomegaly; bowel sounds are present in all four quadrants. EXTREMITIES: No clubbing, cyanosis, or edema. SKIN: Normal; no rash; no jaundice. LICENSED SURVEYOR: No focal deficits; alert and oriented times three. ([employer] ADULT MANAGER) Assessment and Plan Plan ASSESSMENT - Elevated LFTs. ? Hx HCV. States he was told in the past that he had it and then called and told he had false positive. He has RUQ pain with cholelithiasis and pericholecystic fluid. Gall Bladder Ultrasound (12/25/16)----> Echogenic foci within the gallbladder lumen suggests multiple stones and there is a positive sonographic Crook's sign. Normal dimension common hepatic duct. Abdomen/ Pelvis CT (12/25/16)---> No acute abnormality demonstrated. 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 Lower lumbar degenerative changes as above. MRCP (12/26/16)---> Pericholecystic fluid. Apparent gallstones sonographically but well seen by MRI. No duct stone or ductal dilatation. Hepatitis C Genotype/viral load pending. AFP 3.4, Ferritin 889, Iron saturation 30.1%, RAFFAELE pending, ASMA pending, AMA pending, Ceruloplasmin pending, Alpha 1 Antitrypsin pending. T. Bili 1.3, AST 299, ALT 427, Alk Phosph 101. GS following, possible cholecystectomy when medical issues resolve. - Cholelithiasis, Pericholecystic fluid. GS following. Possible lap. emelyn once medical issues resolve. - Syncopal episode, hypertensive emergency. Head CT (12/26/16)----> Negative noncontrast CT brain. Brain MRI (12/26/16)----> 1. Abnormal signal involving the posterior parietal lobes bilaterally as well as the right cerebellar hemisphere. The findings are not consistent with acute stroke. This could represent gliosis from prior trauma. I do feel that further characterization of these areas with gadolinium as needed to exclude an infiltrating process. 2. Tiny focus of hemosiderin product associated with the left parietal lobe without acute hemorrhage. This likely represents an old area of hemorrhage. 3. Mild chronic small vessel ischemic change. 4. Left maxillary Head Magnetic Resonance Angiography (12/26/16)----> 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 Intracranial circulation is otherwise widely patent. sinusitis. EEG unremarkable. Neurology following. - Leukocytosis. Improved, WBC 11.0. BCx no growth 1 day. Vanco, zosyn PLAN - Clear liquids, diet per GS - Await HCV Genotype, viral load - Await RAFFAELE, ASMA, AMA - Await Ceruloplasmin, Alpha 1 antitrypsin - Monitor CBC, LFTs - Cont. Abx - No indication for ercp at this time- no biliary dilatation on mrcp - GS following, possible lap. emelyn. once stable from neurology standpoint, liver enzymes worked up - Supportive care - Pt seen and examined by Dr. Segal and myself and this note is written on his behalf (Cat Mast) Physician Comments Patient seen and examined Agree with above Continue with current supportive care Monitor labs Further plans as per the general surgery service Not much to add from a GI perspective we will sign off (Merrill Segal MD) Cat Mast Dec 28, 2016 09:44 Merrill Segal MD Dec 28, 2016 19:47
--- NOTE | 2016-12-28 14:39 | HHI.PR ---
Subjective Remarks Follow-up for possible cholecystitis/gallstones/headache/hepatitis Patient stated headache resolved. He has not had any episodes of any seizure since admission. Patient feels like he is doing well but he continues to have right upper quadrant pain. He stated that he is tolerating the clear liquid diet but it does increase his repertoire quadrat pain. Denied any nausea or vomiting. Patient is very anxious of surgery. Patient denied any chest pain, shortness of breathing, lightheadedness/ dizziness or palpitation. Patient stated that even with exertion he does not have any of these symptoms. Objective Vitals Vital Signs Date Time Temp Pulse Resp B/P Pulse Ox O2 Delivery O2 Flow Rate FiO2 12/28/16 12:21 61 12/28/16 12:05 98.7 83 16 141/81 99 12/28/16 08:00 99.5 67 16 116/74 96 12/28/16 05:00 99.0 68 20 122/78 95 12/28/16 00:00 99.1 68 18 122/81 96 12/27/16 20:31 97.7 65 20 137/86 96 12/27/16 15:51 98.6 79 18 147/90 97 I/O 12/27/16 12/27/16 12/27/16 12/28/16 12/28/16 12/28/16 06:59 14:59 22:59 06:59 14:59 22:59 Intake Total 1342 ml Output Total 600 ml 600 ml 1000 ml 350 ml Balance 742 ml -600 ml -1000 ml -350 ml Intake IV Total 1342 ml Output Urine Total 600 ml 600 ml 1000 ml 350 ml # Bowel Movements 0 0 Result Diagram: 12/28/16 0304 12/28/16 0304 Objective Remarks GENERAL: in NAD SKIN: Right dorsal of the hand wound with mild erythema, minimal drainage. Left knee with mild erythema on the left medial aspect of the kneecap. Full range of motion of the left knee. CARDIOVASCULAR: Regular rate and rhythm without murmurs, gallops, or rubs. RESPIRATORY: Breath sounds equal bilaterally. No accessory muscle use. GASTROINTESTINAL: Abdomen soft, nondistended. Positive tenderness palpation the right upper quadrant and epigastric area. No peritoneal signs. MUSCULOSKELETAL: No cyanosis, or edema. BACK: Nontender without obvious deformity. No CVA tenderness. NEURO: AAO X 3. Sensation and motor grossly intact. Medications and IVs Current Medications Morphine Sulfate (Morphine Inj) 4 mg ONCE ONCE IV PUSH Last administered on 21:25; Start 12/25/16 at 21:15; Stop 12/25/16 at 21:16; Status DC Ondansetron HCl 4 mg 4 mg ONCE ONCE IVP Last administered on 12/25/16 21:26; Start 12/25/16 at 21:15; Stop 12/25/16 at 21:16; Status DC Sodium Chloride (NS 1000 ml Inj) 1,000 ml @ 1,000 mls/hr Q1H IV Last administered on 12/25/16 21:25; Start 12/25/16 at 21:09; Stop 12/25/16 at 22:08 ; Status DC Morphine Sulfate (Morphine Inj) 4 mg ONCE ONCE IV PUSH Last administered on 22:03; Start 12/25/16 at 22:00; Stop 12/25/16 at 22:01; Status DC Hydromorphone HCl (Dilaudid Pf Inj) 1 mg ONCE ONCE IV PUSH Last administered on 12/25/16 22:23; Start 12/25/16 at 22:15; Stop 12/25/16 at 22:16; Status DC Iohexol (Omnipaque 350 Inj) 50 ml STK-MED ONCE IV Last administered on 22:32; Start 12/25/16 at 22:32; Stop 12/25/16 at 22:33; Status DC Ondansetron HCl (Zofran Inj) 4 mg ONCE ONCE IV PUSH Last administered on 22:48; Start 12/25/16 at 23:00; Stop 12/25/16 at 23:01; Status DC Hydromorphone HCl (Dilaudid Pf Inj) 1 mg ONCE ONCE IV PUSH Last administered on 12/25/16 23:18; Start 12/25/16 at 23:15; Stop 12/25/16 at 23:16; Status DC Promethazine HCl 25 mg 25 mg ONCE ONCE IM Last administered on 12/25/16 23:18 ; Start 12/25/16 at 23:15; Stop 12/25/16 at 23:16; Status DC Sodium Chloride 1,000 ml @ 999 mls/hr BOLUS ONCE IV Last administered on 12/26 01:08; Start 12/26/16 at 00:45; Stop 12/26/16 at 01:45; Status DC Piperacillin Sod/ Tazobactam Sod (Zosyn 4.5 Gm Premix) 100 ml @ 200 mls/hr ONCE ONCE IV Last administered on 12/26/16 01:08; Start 12/26/16 at 00:45; Stop 12/26/16 at 01:14; Status DC Hydromorphone HCl 2 mg 2 mg ONCE ONCE IV PUSH Last administered on 12/26/16 01:09; Start 12/26/16 at 00:45; Stop 12/26/16 at 00:48; Status DC Sodium Chloride (NS 1000 ml Inj) 1,000 ml @ 100 mls/hr Q10H IV Last administered on 12/28/16 04:00; Start 12/26/16 at 00:57 Sodium Chloride (NS Flush) 2 ml UNSCH PRN IV FLUSH FLUSH AFTER USING IV ACCESS ; Start 12/26/16 at 01:00 Sodium Chloride (NS Flush) 2 ml BID IV FLUSH Last administered on 12/28/16 09: 31; Start 12/26/16 at 09:00 Ondansetron HCl (Zofran Inj) 4 mg Q6H PRN IVP NAUSEA OR VOMITING Last administered on 12/28/16 09:29; Start 12/26/16 at 01:00 Naloxone HCl 0.4 mg 0.4 mg UNSCH PRN IV SEE LABEL COMMENTS; Start 12/26/16 at 01:00 Piperacillin Sod/ Tazobactam Sod (Zosyn 4.5 Gm Premix) 100 ml @ 200 mls/hr Q6H IV Last administered on 12/28/16 12:02; Start 12/26/16 at 06:00 Hydralazine HCl (Apresoline Inj) 10 mg ONCE ONCE IV PUSH Last administered on 12/26/16 03:13; Start 12/26/16 at 03:15; Stop 12/26/16 at 03:16; Status DC Lorazepam 1 mg 1 mg Q15M PRN IV PUSH seizrues Last administered on 12/26/16 04 :10; Start 12/26/16 at 04:00 Pharmacy Profile Note 0 ml @ 0 mls/hr UNSCH OTHER ; Start 12/26/16 at 04:00; Stop 12/26/16 at 09:44; Status DC Vancomycin HCl/ Sodium Chloride (Vancomycin Inj/ NS 250 ml Inj) 262.5 ml @ 250 mls/hr ONCE ONCE IV Last administered on 12/26/16 05:00; Start 12/26/16 at 05 :00; Stop 12/26/16 at 06:02; Status DC Miscellaneous Information 1 [id number] Last administered on 12/26/16 05:00; Start 12/26/16 at 05:00 Chlorhexidine Gluconate (Chlorhexidine 2% Cloth) 3 pack Taper DAILY@04 TOP ; Start 12/27/16 at 04:00; Stop 12/23/17 at 03:59 Chlorhexidine Gluconate 3 pack 3 pack UNSCH PRN TOP HYGIENIC CARE; Start at 05:00 Vancomycin HCl/ Sodium Chloride (Vancomycin Inj/ NS 500 ml Inj) 515 ml @ 250 mls/hr Q12H IV ; Start 12/26/16 at 13:00; Stop 12/26/16 at 13:00; Status DC Miscellaneous Information SPECIFIC LAB TO BE DRAWN:PHARMACY CONSULT DATE TO... ONCE ONCE .XX ; Start 12/27/16 at 12:45; Stop 12/27/16 at 12:46; Status Cancel Amlodipine Besylate 10 mg 10 mg DAILY PO Last administered on 12/28/16 09:36; Start 12/26/16 at 10:00 Pharmacy Profile Note 0 ml @ 0 mls/hr UNSCH OTHER ; Start 12/26/16 at 12:00 Vancomycin HCl/ Sodium Chloride (Vancomycin Inj/ NS 500 ml Inj) 515 ml @ 250 mls/hr Q12H IV Last administered on 12/28/16 04:00; Start 12/26/16 at 14:00; Stop 12/28/16 at 09:29; Status DC Miscellaneous Information SPECIFIC LAB TO BE DRAWN:VANCOMYCIN TROUGH DATE TO... ONCE ONCE .XX Last administered on 12/28/16 01:45; Start 12/28/16 at 01:45; Stop 12/28/16 at 01:46; Status DC Oxycodone HCl (Roxicodone) 10 mg Q4H PRN PO PAIN 8-10 Last administered on 12/28t 12:03; Start 12/26/16 at 19:45 Oxycodone HCl 5 mg 5 mg Q4H PRN PO PAIN 1-7; Start 12/26/16 at 19:45 Vancomycin HCl/ Sodium Chloride (Vancomycin Inj/ NS 250 ml Inj) 262.5 ml @ 250 mls/hr Q12H IV ; Start 12/28/16 at 14:00 Miscellaneous Information SPECIFIC LAB TO BE DRAWN:VANCOMYCIN TROUGH DATE TO... ONCE ONCE .XX ; Start 12/30/16 at 01:45; Stop 12/30/16 at 01:46 A/P Problem List: (1) Transaminitis ICD Code: R74.0 Status: Acute (2) Seizure ICD Code: R56.9 Status: Acute (3) Leukocytosis ICD Code: D72.829 Status: Acute (4) Lactic acidosis ICD Code: E87.2 Status: Acute Assessment and Plan 56 y/o male with a history of HTN, asthma, Gerd, and renal cell carcinoma presented to the ED with complaints of nausea, vomiting and abdominal pain. During examination patient began to have a seizure and became post-ictal. Transaminitis, AST 206, ALT 437 Gallbladder US reviewed and shows Echogenic foci within the gallbladder lumen suggests multiple stones and there is a positive sonographic Crook's sign. Normal dimension common hepatic duct. -Patient is symptomatic with elevated WBC initially. WBC is improving. -GI consulted and following. -Ethanol level negative. Positive for hepatitis C. LFTs mildly elevated today. -MRCP showed pericholecystic fluid. Apparent gallstones sonographically but well seen by MRI. No duct stone or ductal dilatation. -Patient started on IV Zosyn. -Per GI no indication for ERCP. -Continue with current regimen. Patient is medically stable to have surgery. Seizure, acute, new onset, no documented history of seizures -CT brain negative. Troponin negative. -Neurologist consulted. Maybe more syncope. -EEG negative. MRI shows an old intracranial hemorrhage in which patient stated that he does have a history of having trauma to his head. Abnormal signal involving the posterior parietal lobes bilaterally as well as the right cerebellar hemisphere. The findings are not consistent with acute stroke. This could represent gliosis from prior trauma. Headache -Resolved. -Maybe migraine headache. See MRI as above. Improving. Also may be secondary to sinusitis. Patient is on antibiotics and Flonase. left hand cellulitis/abscess status post I&D and left cellulitis of the lower extremity -Improving on vancomycin. Will switch to oral medication tomorrow. Hypertensive urgency -Secondary to noncompliance. -Patient is now normotensive. Continue with amlodipine. DVT prophylaxis: SCDs Discharge Planning Patient is medically cleared and stable for surgery. Guillermina Cline MD Dec 28, 2016 14:39
[2016-12-28] MEDS: VANCOMYCIN INJ 1,250 MG in SODIUM CHLOR 0.9% 250 ML INJ 250 ML IV SCH (14:47)
--- NOTE | 2016-12-28 17:36 | HHI.PR ---
Subjective Subjective Notes Resting in bed Asking for regular diet Objective Vitals/I&O Vital Signs Date Time Temp Pulse Resp B/P Pulse Ox O2 Delivery O2 Flow Rate FiO2 12/28/16 16:00 99.2 74 16 133/82 98 12/26/16 03:49 Nasal Cannula 3 Labs Laboratory Tests Test 12/28/16 03:04 White Blood Count 11.0 Red Blood Count 4.42 Hemoglobin 14.5 Hematocrit 40.4 Mean Corpuscular Volume 91.4 Mean Corpuscular Hemoglobin 32.7 Mean Corpuscular Hemoglobin 35.8 Concent Red Cell Distribution Width 14.1 Platelet Count 226 Mean Platelet Volume 7.8 Sodium Level 135 Potassium Level 3.7 Chloride Level 98 Carbon Dioxide Level 30.0 Anion Gap 7 Blood Urea Nitrogen 14 Creatinine 1.05 Estimat Glomerular Filtration 74 Rate Random Glucose 86 Calcium Level 8.6 Total Bilirubin 1.3 Aspartate Amino Transf 299 (AST/SGOT) Alanine Aminotransferase 427 (ALT/SGPT) Alkaline Phosphatase 101 Total Protein 7.1 Albumin 2.7 Tumor Marker Alpha Fetoprotein 3.4 Vancomycin Level Trough 18.9 Date/Time Procedure Status Source Growth 12/26/16 01:05 Aerobic Blood Culture - Preliminary Resulted Blood Peripheral NO GROWTH IN 2 DAYS 12/26/16 01:05 Anaerobic Blood Culture - Preliminary Resulted Blood Peripheral NO GROWTH IN 2 DAYS Radiology Last 48 hours Impressions Head Magnetic Resonance Angiography 12/26/16 0000 Signed Impressions: Service Date/Time: Monday, December 26, 2016 12:33 - CONCLUSION: 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 Intracranial circulation is otherwise widely patent. Sushant Tee MD Head CT 12/26/16 0000 Signed Impressions: Service Date/Time: Monday, December 26, 2016 04:06 - CONCLUSION: Negative noncontrast CT brain. Sincere Jasso MD Cholangiopancreatography MRI 12/26/16 0000 Signed Impressions: Service Date/Time: Monday, December 26, 2016 21:24 - CONCLUSION: Pericholecystic fluid. Apparent gallstones sonographically but well seen by MRI. No duct stone or ductal dilatation. Nate Herring MD Cervical Spine MRI 12/26/16 0000 Signed Impressions: Service Date/Time: Monday, December 26, 2016 12:33 - CONCLUSION: 1. Mild spinal stenosis and bilateral neuroforaminal narrowing at C4-5. 2. Cervical spondylosis at C4-5. Cezar Russell MD Brain MRI 12/26/16 0000 Signed Impressions: Service Date/Time: Monday, December 26, 2016 12:33 - CONCLUSION: 1. Abnormal signal involving the posterior parietal lobes bilaterally as well as the right cerebellar hemisphere. The findings are not consistent with acute stroke. This could represent gliosis from prior trauma. I do feel that further characterization of these areas with gadolinium as needed to exclude an infiltrating process. 2. Tiny focus of hemosiderin product associated with the left parietal lobe without acute hemorrhage. This likely represents an old area of hemorrhage. 3. Mild chronic small vessel ischemic change. 4. Left maxillary sinusitis. Sincere Bermudez Jr., MD Chest X-Ray 12/25/162108 Signed Impressions: Service Date/Time: Sunday, December 25, 2016 21:15 - CONCLUSION: No significant change mild right lower lobe infiltrate. Nate Herring MD Abdomen/Pelvis CT 12/25/162108 Signed Impressions: Service Date/Time: Sunday, December 25, 2016 22:30 - CONCLUSION: No acute abnormality demonstrated. 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 Lower lumbar degenerative changes as above. Nate Herring MD Cardiovascular: Regular Lungs: Clear Abdomen: Other (RUQ tenderness ) Extremities: No edema A/P Assessment and Plan 56 year old male s/p seizure with symptomatic cholelithiasis -MRCP shows not duct stone or dilation -LFTs still elevated -Once medically cleared will plan for lap emelyn -Low fat diet Gabriela Gipson Dec 28, 2016 17:36
[2016-12-29] VITALS (9 sets, daily range): BP systolic 127–142; BP diastolic 79–89; PULSE 51–72; RESP 16–18; TEMP 97.7–99.2; O2SAT 96–98
[2016-12-29] MEDS: PIPERACIL-TAZO 4.5 GM PREMIX 100 ML IV SCH ×5 (00:14→23:52)
[2016-12-29] MEDS: SODIUM CHLOR 0.9% 1000 ML INJ 1,000 ML IV SCH ×3 (00:14→17:46)
[2016-12-29] MEDS: VANCOMYCIN INJ 1,250 MG in SODIUM CHLOR 0.9% 250 ML INJ 250 ML IV SCH ×2 (01:39→14:48)
[2016-12-29] MEDS: CHLORHEXIDINE GLUCONATE 2 % 1 PACK (2 CLOTHS) TOP SCH ×2 (03:50→18:44)
[2016-12-29] MEDS: SODIUM CHLORIDE 0.9% FLUSH 10 ML FLUSH IV FLUSH SCH ×2 (08:54→20:07)
--- NOTE | 2016-12-29 11:41 | HHI.PR ---
Subjective Remarks Follow-up for abdominal pain Patient stated that he continues to have right upper quadrant and epigastric pain. He stated he is very anxious to have surgery. Patient is able to tolerate his oral intake but continues have pain. Denying nausea or vomiting. Patient is asking when he can have surgery. His nurse at the bedside during the interview. Objective Vitals Vital Signs Date Time Temp Pulse Resp B/P Pulse Ox O2 Delivery O2 Flow Rate FiO2 12/29/16 08:00 97.7 65 16 127/86 97 12/29/16 04:00 98.4 58 18 139/79 96 12/29/16 00:00 98.6 54 18 128/83 98 12/28/16 20:00 97.9 61 18 135/86 98 12/28/16 16:00 99.2 74 16 133/82 98 12/28/16 12:21 61 12/28/16 12:05 98.7 83 16 141/81 99 I/O 12/28/16 12/28/16 12/28/16 12/29/16 12/29/16 12/29/16 07:00 15:00 23:00 07:00 15:00 23:00 Intake Total 480 ml Output Total 1000 ml 575 ml 450 ml 750 ml 350 ml Balance -1000 ml -95 ml -450 ml -750 ml -350 ml Intake Oral 480 ml Output Urine Total 1000 ml 575 ml 450 ml 750 ml 350 ml # Bowel Movements 0 0 Result Diagram: 12/28/16 0304 12/28/16 0304 Objective Remarks GENERAL: in NAD SKIN: Right dorsal of the hand wound erythema resolved. Left knee with mild erythema on the left medial aspect of the kneecap. Full range of motion of the left knee. CARDIOVASCULAR: Regular rate and rhythm without murmurs, gallops, or rubs. RESPIRATORY: Breath sounds equal bilaterally. No accessory muscle use. GASTROINTESTINAL: Abdomen soft, nondistended. Positive tenderness palpation the right upper quadrant and epigastric area. No peritoneal signs. MUSCULOSKELETAL: No cyanosis, or edema. BACK: Nontender without obvious deformity. No CVA tenderness. NEURO: AAO X 3. Sensation and motor grossly intact. Medications and IVs Current Medications Morphine Sulfate (Morphine Inj) 4 mg ONCE ONCE IV PUSH Last administered on t 21:25; Start 12/25/16 at 21:15; Stop 12/25/16 at 21:16; Status DC Ondansetron HCl 4 mg 4 mg ONCE ONCE IVP Last administered on 12/25/16 21:26; Start 12/25/16 at 21:15; Stop 12/25/16 at 21:16; Status DC Sodium Chloride (NS 1000 ml Inj) 1,000 ml @ 1,000 mls/hr Q1H IV Last administered on 12/25/16 21:25; Start 12/25/16 at 21:09; Stop 12/25/16 at 22:08 ; Status DC Morphine Sulfate (Morphine Inj) 4 mg ONCE ONCE IV PUSH Last administered on 22:03; Start 12/25/16 at 22:00; Stop 12/25/16 at 22:01; Status DC Hydromorphone HCl (Dilaudid Pf Inj) 1 mg ONCE ONCE IV PUSH Last administered on 12/25/16 22:23; Start 12/25/16 at 22:15; Stop 12/25/16 at 22:16; Status DC Iohexol (Omnipaque 350 Inj) 50 ml STK-MED ONCE IV Last administered on 22:32; Start 12/25/16 at 22:32; Stop 12/25/16 at 22:33; Status DC Ondansetron HCl (Zofran Inj) 4 mg ONCE ONCE IV PUSH Last administered on 22:48; Start 12/25/16 at 23:00; Stop 12/25/16 at 23:01; Status DC Hydromorphone HCl (Dilaudid Pf Inj) 1 mg ONCE ONCE IV PUSH Last administered on 12/25/16 23:18; Start 12/25/16 at 23:15; Stop 12/25/16 at 23:16; Status DC Promethazine HCl 25 mg 25 mg ONCE ONCE IM Last administered on 12/25/16 23:18 ; Start 12/25/16 at 23:15; Stop 12/25/16 at 23:16; Status DC Sodium Chloride 1,000 ml @ 999 mls/hr BOLUS ONCE IV Last administered on 12/26 01:08; Start 12/26/16 at 00:45; Stop 12/26/16 at 01:45; Status DC Piperacillin Sod/ Tazobactam Sod (Zosyn 4.5 Gm Premix) 100 ml @ 200 mls/hr ONCE ONCE IV Last administered on 12/26/16 01:08; Start 12/26/16 at 00:45; Stop 12/26/16 at 01:14; Status DC Hydromorphone HCl 2 mg 2 mg ONCE ONCE IV PUSH Last administered on 12/26/16 01:09; Start 12/26/16 at 00:45; Stop 12/26/16 at 00:48; Status DC Sodium Chloride (NS 1000 ml Inj) 1,000 ml @ 100 mls/hr Q10H IV Last administered on 12/29/16 00:14; Start 12/26/16 at 00:57 Sodium Chloride (NS Flush) 2 ml UNSCH PRN IV FLUSH FLUSH AFTER USING IV ACCESS ; Start 12/26/16 at 01:00 Sodium Chloride (NS Flush) 2 ml BID IV FLUSH Last administered on 12/28/16 21: 00; Start 12/26/16 at 09:00 Ondansetron HCl (Zofran Inj) 4 mg Q6H PRN IVP NAUSEA OR VOMITING Last administered on 12/28/16 09:29; Start 12/26/16 at 01:00 Naloxone HCl 0.4 mg 0.4 mg UNSCH PRN IV SEE LABEL COMMENTS; Start 12/26/16 at 01:00 Piperacillin Sod/ Tazobactam Sod (Zosyn 4.5 Gm Premix) 100 ml @ 200 mls/hr Q6H IV Last administered on 12/29/16 05:51; Start 12/26/16 at 06:00 Hydralazine HCl (Apresoline Inj) 10 mg ONCE ONCE IV PUSH Last administered on 12/26/16 03:13; Start 12/26/16 at 03:15; Stop 12/26/16 at 03:16; Status DC Lorazepam 1 mg 1 mg Q15M PRN IV PUSH seizrues Last administered on 12/26/16 04 :10; Start 12/26/16 at 04:00 Pharmacy Profile Note 0 ml @ 0 mls/hr UNSCH OTHER ; Start 12/26/16 at 04:00; Stop 12/26/16 at 09:44; Status DC Vancomycin HCl/ Sodium Chloride (Vancomycin Inj/ NS 250 ml Inj) 262.5 ml @ 250 mls/hr ONCE ONCE IV Last administered on 12/26/16 05:00; Start 12/26/16 at 05 :00; Stop 12/26/16 at 06:02; Status DC Miscellaneous Information 1 [id number] Last administered on 12/26/16 05:00; Start 12/26/16 at 05:00 Chlorhexidine Gluconate (Chlorhexidine 2% Cloth) 3 pack Taper DAILY@04 TOP ; Start 12/27/16 at 04:00; Stop 12/23/17 at 03:59 Chlorhexidine Gluconate 3 pack 3 pack UNSCH PRN TOP HYGIENIC CARE; Start at 05:00 Vancomycin HCl/ Sodium Chloride (Vancomycin Inj/ NS 500 ml Inj) 515 ml @ 250 mls/hr Q12H IV ; Start 12/26/16 at 13:00; Stop 12/26/16 at 13:00; Status DC Miscellaneous Information SPECIFIC LAB TO BE DRAWN:PHARMACY CONSULT DATE TO... ONCE ONCE .XX ; Start 12/27/16 at 12:45; Stop 12/27/16 at 12:46; Status Cancel Amlodipine Besylate 10 mg 10 mg DAILY PO Last administered on 12/29/16 08:10; Start 12/26/16 at 10:00 Pharmacy Profile Note 0 ml @ 0 mls/hr UNSCH OTHER ; Start 12/26/16 at 12:00 Vancomycin HCl/ Sodium Chloride (Vancomycin Inj/ NS 500 ml Inj) 515 ml @ 250 mls/hr Q12H IV Last administered on 12/28/16 04:00; Start 12/26/16 at 14:00; Stop 12/28/16 at 09:29; Status DC Miscellaneous Information SPECIFIC LAB TO BE DRAWN:VANCOMYCIN TROUGH DATE TO... ONCE ONCE .XX Last administered on 12/28/16 01:45; Start 12/28/16 at 01:45; Stop 12/28/16 at 01:46; Status DC Oxycodone HCl (Roxicodone) 10 mg Q4H PRN PO PAIN 8-10 Last administered on 12/29 11:26; Start 12/26/16 at 19:45 Oxycodone HCl 5 mg 5 mg Q4H PRN PO PAIN 1-7; Start 12/26/16 at 19:45 Vancomycin HCl/ Sodium Chloride (Vancomycin Inj/ NS 250 ml Inj) 262.5 ml @ 250 mls/hr Q12H IV Last administered on 12/29/16t 01:39; Start 12/28/16 at 14:00 Miscellaneous Information SPECIFIC LAB TO BE DRAWN:VANCOMYCIN TROUGH DATE TO... ONCE ONCE .XX ; Start 12/30/16 at 01:45; Stop 12/30/16 at 01:46 A/P Problem List: (1) Transaminitis ICD Code: R74.0 Status: Acute (2) Seizure ICD Code: R56.9 Status: Acute (3) Leukocytosis ICD Code: D72.829 Status: Acute (4) Lactic acidosis ICD Code: E87.2 Status: Acute Assessment and Plan 56 y/o male with a history of HTN, asthma, Gerd, and renal cell carcinoma presented to the ED with complaints of nausea, vomiting and abdominal pain. During examination patient began to have a seizure and became post-ictal. Transaminitis, AST 206, ALT 437 Gallbladder US reviewed and shows Echogenic foci within the gallbladder lumen suggests multiple stones and there is a positive sonographic Crook's sign. Normal dimension common hepatic duct. -Patient is symptomatic with elevated WBC initially. WBC is improving. -GI consulted and following. -Ethanol level negative. Positive for hepatitis C. LFTs mildly elevated today. -MRCP showed pericholecystic fluid. Apparent gallstones sonographically but well seen by MRI. No duct stone or ductal dilatation. -Patient started on IV Zosyn. -Per GI no indication for ERCP. pending labs from today. -Continue with current regimen. Patient is medically stable to have surgery. Seizure, acute, new onset, no documented history of seizures -Drug-induced. Patient has been stable since admission. -CT brain negative. Troponin negative. -Neurologist consulted. Maybe more syncope. -EEG negative. MRI shows an old intracranial hemorrhage in which patient stated that he does have a history of having trauma to his head. Abnormal signal involving the posterior parietal lobes bilaterally as well as the right cerebellar hemisphere. The findings are not consistent with acute stroke. This could represent gliosis from prior trauma. Headache -Resolved. -Maybe migraine headache. See MRI as above. Improving. Also may be secondary to sinusitis. Patient is on antibiotics and Flonase. left hand cellulitis/abscess status post I&D and left cellulitis of the lower extremity -Improving on vancomycin. We'll switch to oral medication tomorrow. Hypertensive urgency -Secondary to noncompliance. -Patient is now normotensive. Continue with amlodipine. DVT prophylaxis: SCDs Discharge Planning Awaiting for surgery. Guillermina Cline MD Dec 29, 2016 11:41
[2016-12-29 11:46] LABS: HEMATOCRIT 41.1 % (39.0-51.0); MEAN CELL VOLUME 95.2 FL (80.0-100.0); MEAN CORPUSCULAR HEMOGLOBIN 31.4 PG (27.0-34.0); PLATELET COUNT 174 TH/MM3 (150-450); RED BLOOD COUNT 4.31 MIL/MM3 (4.50-5.90); RED CELL DISTRIBUTION WIDTH 14.6 % (11.6-17.2); REVIEW FLAG FINAL; WHITE BLOOD COUNT 9.4 TH/MM3 (4.0-11.0)
[2016-12-29 12:01] LABS: BICARBONATE 26.1 MEQ/L (21.0-32.0); POTASSIUM 3.3 MEQ/L (3.5-5.1)
--- NOTE | 2016-12-29 13:25 | RADRPT ---
EXAM DATE/TIME: 12/29/2016 12:31 [facility] COMPARISON: CT ABDOMEN & PELVIS W CONTRAST, December 25, 2016, 22:30. CT BRAIN W/O CONTRAST, December 26, 2016, 4:06 . MRI BRAIN W/O CONTRAST, December 26, 2016, 12:33. INDICATIONS : Altered mental status. CONTRAST: 16 cc Omniscan (gadodiamide) IV MEDICAL HISTORY : Hypertension. Renal cell ca SURGICAL HISTORY : Nephrectomy, left. Splenectomy. ENCOUNTER: Subsequent ACUITY: 3 day PAIN SCORE: 0/10 LOCATION: head TECHNIQUE: Multiplanar, multisequence MRI of the brain was performed both prior to and following the administrat ion of paramagnetic contrast. FINDINGS: There are small evolving cortical hemorrhage is more prominent on the left than the right high in the left occipital region. Minimal periventricular white matter changes are noted with normal ventricular size. There are no ex tra-axial fluid collections appreciated. There are no extra-axial fluid collections appreciated. We ll-circumscribed calcific with severe mass is seen in the subcutaneous tissues high in the left occip ital region. The posterior fossa is unremarkable with midline fourth ventricle. CONCLUSION: Evolving hemorrhages as described above. I do not see in the new lesions. I do not see anything to suggest metastatic disease. Colten Tee MD FACR on December 29, 2016 at 13:16 Board Certified Radiologist. This report was verified electronically.
[2016-12-29 13:54] LABS: HCV RNA PCR LOGIU/ML 5.79 (())
[2016-12-29] MEDS ORDERED: GADODIAMIDE PF 287 MG/ML 20 ML VIAL (for RAD MRI) IV ONE (14:43)
--- NOTE | 2016-12-29 20:05 | HHI.PR ---
Subjective Subjective Notes Resting in bed Still with RUQ pain Objective Vitals/I&O Vital Signs Date Time Temp Pulse Resp B/P Pulse Ox O2 Delivery O2 Flow Rate FiO2 12/29/16 16:00 98.1 72 16 142/89 98 12/26/16 03:49 Nasal Cannula 3 Labs Laboratory Tests Test 12/29/16 11:08 White Blood Count 9.4 Red Blood Count 4.31 Hemoglobin 13.5 Hematocrit 41.1 Mean Corpuscular Volume 95.2 Mean Corpuscular Hemoglobin 31.4 Mean Corpuscular Hemoglobin 33.0 Concent Red Cell Distribution Width 14.6 Platelet Count 174 Mean Platelet Volume 8.1 Sodium Level 136 Potassium Level 3.3 Chloride Level 101 Carbon Dioxide Level 26.1 Anion Gap 9 Blood Urea Nitrogen 12 Creatinine 1.11 Estimat Glomerular Filtration 69 Rate Random Glucose 245 Calcium Level 8.2 Date/Time Procedure Status Source Growth 12/26/16 01:05 Aerobic Blood Culture - Preliminary Resulted Blood Peripheral NO GROWTH IN 3 DAYS 12/26/16 01:05 Anaerobic Blood Culture - Preliminary Resulted Blood Peripheral NO GROWTH IN 3 DAYS Radiology Last 48 hours Impressions Head Magnetic Resonance Angiography 12/26/16 0000 Signed Impressions: Service Date/Time: Monday, December 26, 2016 12:33 - CONCLUSION: 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 Intracranial circulation is otherwise widely patent. Sushant Tee MD Head CT 12/26/16 0000 Signed Impressions: Service Date/Time: Monday, December 26, 2016 04:06 - CONCLUSION: Negative noncontrast CT brain. Sincere Jasso MD Cholangiopancreatography MRI 12/26/16 0000 Signed Impressions: Service Date/Time: Monday, December 26, 2016 21:24 - CONCLUSION: Pericholecystic fluid. Apparent gallstones sonographically but well seen by MRI. No duct stone or ductal dilatation. Nate Herring MD Cervical Spine MRI 12/26/16 0000 Signed Impressions: Service Date/Time: Monday, December 26, 2016 12:33 - CONCLUSION: 1. Mild spinal stenosis and bilateral neuroforaminal narrowing at C4-5. 2. Cervical spondylosis at C4-5. Cezar Russell MD Brain MRI 12/26/16 0000 Signed Impressions: Service Date/Time: Monday, December 26, 2016 12:33 - CONCLUSION: 1. Abnormal signal involving the posterior parietal lobes bilaterally as well as the right cerebellar hemisphere. The findings are not consistent with acute stroke. This could represent gliosis from prior trauma. I do feel that further characterization of these areas with gadolinium as needed to exclude an infiltrating process. 2. Tiny focus of hemosiderin product associated with the left parietal lobe without acute hemorrhage. This likely represents an old area of hemorrhage. 3. Mild chronic small vessel ischemic change. 4. Left maxillary sinusitis. Sincere Bermudez Jr., MD Chest X-Ray [id number]/25/162108 Signed Impressions: Service Date/Time: Sunday, December 25, 2016 21:15 - CONCLUSION: No significant change mild right lower lobe infiltrate. Nate Herring MD Abdomen/Pelvis CT [id number]/25/162108 Signed Impressions: Service Date/Time: Sunday, December 25, 2016 22:30 - CONCLUSION: No acute abnormality demonstrated. 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 Lower lumbar degenerative changes as above. Nate Herring MD Cardiovascular: Regular Lungs: Clear Abdomen: Other (RUQ pain with palpation ) Extremities: No edema A/P Assessment and Plan 56 year old male s/p seizure with symptomatic cholelithiasis -MRCP shows not duct stone or dilation -LFTs still elevated -Will plan for lap emelyn Sunday -Obtain consents -Low fat diet ; NPO after MN Sunday night Gabriela Gipson Dec 29, 2016 20:04
--- NOTE | 2016-12-29 20:37 | MB ---
cc: SANDRA BUSH M.D. DATE OF CONSULTATION 12/29/2016 REASON FOR CONSULTATION Cerebral contusion. HISTORY OF PRESENT ILLNESS A 56-year-old gentleman who was admitted on 12/25/2016 after he presented to the emergency room with complaints of epigastric and right upper quadrant pain along with nausea. He was found to have cholelithiasis and cholecystitis and at some point is scheduled to undergo a cholecystectomy. He also relates that he had a near syncopal episodes 4 days prior to his admission and fell and hit his head and had a similar episode a month ago. Since the falls he has noticed some neck pain and headaches along with a little blurred vision on the right eye and numbness in the right hand. He has been ambulating and relates good strength and no incontinence. He was evaluated by neurology since they felt that he may have had seizures and has had a workup including CT scan of the head as well as MRI scans of the brain with and without contrast as well as cervical spine MRI scan. A CT scan of the head reveals a small hyperdensity likely contusion in the posterior left medial parietal area. MRI scan of the brain again confirms this. Initial CT and MRI was on 12/26/2016 and the followup MRI was done on 12/29/2016 and these were all stable. The cervical spine MRI scan from 12/26/2016 reveals a disk/osteophyte complex at C4-5 with mild stenosis. There is no cord compression or contusion noted. PAST MEDICAL HISTORY Hypertension, renal cell carcinoma with status post left nephrectomy, splenectomy, a staph infection left hand, asthma, gastroesophageal reflux. Hepatitis C. MEDICATIONS Currently include: 1. Vancomycin 1250 milligrams IV q.12 hours. 2. Roxicodone 10 milligrams q. 4 hours p.r.n. 3. Amlodipine 10 milligrams daily. 4. Piperacillin/tazobactam q. 6 hours daily. ALLERGIES METHYLPREDNISOLONE. SOCIAL HISTORY He is single. He does admit to using marijuana, although, denies alcohol use and is a former smoker. LABORATORY FINDINGS White blood cell count 9.4, hemoglobin 13.5, platelet count of 174, PT 11.5, INR 1.0, PTT 23.7, sodium 136, potassium 3.3, BUN 12, creatinine 1.1, glucose 245. PHYSICAL EXAMINATION VITAL SIGNS: Temperature 98.1, pulse 72, respiratory rate 16, blood pressure 142/89, oxygen saturation 98% on room air. HEAD: No Joshi or raccoon sign. NECK: Neck is supple. CHEST: Chest is clear to auscultation bilaterally. HEART: Regular rate, rhythm, normal S1-S2. ABDOMEN: Soft, there is some tenderness in the right upper quadrant. No guarding or rigidity. EXTREMITIES: No deformities, cyanosis, edema. NEUROLOGIC: He is awake, alert. Cranial nerves are grossly intact. Motor strength is 5/5 in the upper and lower extremities, although, complains of shoulder pain and informed that he is scheduled to have right shoulder surgery in a week. Light touch sensation is intact bilaterally. Negative Babinski. Speech is fluent. IMPRESSION 1. 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 2. Cervical sprain along with a C4-5 disk osteophyte complex and mild protrusion. PLAN The patient does not require any neurosurgical intervention for the small cerebral contusion which is stable on follow-up imaging study. Would recommend physical therapy for his mild cervical disk protrusions and pain management as needed. The management of his this syncope/seizure as per the primary care and the neurology service. MD VIANCA Tavarez/CHANTEL /5:49 PM /8:19 PM
[2016-12-30] VITALS (7 sets, daily range): BP systolic 122–130; BP diastolic 71–83; PULSE 51–81; RESP 16–20; TEMP 97.6–98.6; O2SAT 96–98
[2016-12-30] MEDS: VANCOMYCIN INJ 1,250 MG in SODIUM CHLOR 0.9% 250 ML INJ 250 ML IV SCH (01:31)
[2016-12-30] MEDS ORDERED: PHARMACY ORDERED LAB ONE (01:45)
[2016-12-30] MEDS: PIPERACIL-TAZO 4.5 GM PREMIX 100 ML IV SCH ×3 (06:30→18:17)
[2016-12-30] MEDS: SODIUM CHLORIDE 0.9% FLUSH 10 ML FLUSH IV FLUSH SCH ×2 (09:00→20:03)
[2016-12-30] MEDS: SODIUM CHLOR 0.9% 1000 ML INJ 1,000 ML IV SCH ×2 (11:37→14:57)
--- NOTE | 2016-12-30 14:45 | HHI.PR ---
Subjective Remarks Follow-up for abdominal pain Patient state continues to have abdominal pain but able to tolerate oral intake. He stated that he is waiting for surgery. Deny any headache or any other issues. Objective Vitals Vital Signs Date Time Temp Pulse Resp B/P Pulse Ox O2 Delivery O2 Flow Rate FiO2 12/30/16 12:19 98.1 67 18 130/81 98 12/30/16 07:56 97.6 64 16 124/77 98 12/30/16 07:30 51 12/30/16 04:00 98.6 53 18 126/71 96 12/30/16 01:00 72 12/29/16 23:55 98.7 58 18 138/86 97 12/29/16 22:56 69 12/29/16 20:00 99.2 63 18 134/85 97 12/29/16 16:00 98.1 72 16 142/89 98 I/O 12/29/16 12/29/16 12/29/16 12/30/16 12/30/16 12/30/16 06:59 14:59 22:59 06:59 14:59 22:59 Intake Total 765 ml 1280 ml Output Total 750 ml 350 ml 725 ml 1000 ml Balance -750 ml -350 ml 40 ml 280 ml Intake Oral 480 ml IV Total 285 ml 1280 ml Output Urine Total 750 ml 350 ml 725 ml 1000 ml # Voids 7 # Bowel Movements 0 Result Diagram: 12/29/16 1108 12/29/16 1108 Imaging Last Impressions Brain MRI 12/29/16 0000 Signed Impressions: Service Date/Time: Thursday, December 29, 2016 12:31 - CONCLUSION: Evolving hemorrhages as described above. I do not see in the new lesions. I do not see anything to suggest metastatic disease. 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 Intracranial circulation is otherwise widely patent. Sushant Tee MD Head CT 12/26/16 0000 Signed Impressions: Service Date/Time: Monday, December 26, 2016 04:06 - CONCLUSION: Negative noncontrast CT brain. Sincere Jasso MD Cholangiopancreatography MRI 12/26/16 0000 Signed Impressions: Service Date/Time: Monday, December 26, 2016 21:24 - CONCLUSION: Pericholecystic fluid. Apparent gallstones sonographically but well seen by MRI. No duct stone or ductal dilatation. Nate Herring MD Cervical Spine MRI 12/26/16 0000 Signed Impressions: Service Date/Time: Monday, December 26, 2016 12:33 - CONCLUSION: 1. Mild spinal stenosis and bilateral neuroforaminal narrowing at C4-5. 2. Cervical spondylosis at C4-5. Cezar Russell MD Chest X-Ray [id number] Signed Impressions: Service Date/Time: Sunday, December 25, 2016 21:15 - CONCLUSION: No significant change mild right lower lobe infiltrate. Nate Herring MD Abdomen/Pelvis CT [id number] Signed Impressions: Service Date/Time: Sunday, December 25, 2016 22:30 - CONCLUSION: No acute abnormality demonstrated. 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 Lower lumbar degenerative changes as above. Nate Herring MD Gall Bladder Ultrasound 12/25/16 0000 Signed Impressions: Service Date/Time: Sunday, December 25, 2016 23:00 - CONCLUSION: Echogenic foci within the gallbladder lumen suggests multiple stones and there is a positive sonographic Crook's sign. Normal dimension common hepatic duct. Sincere Jasso MD Objective Remarks GENERAL: in NAD SKIN: Right dorsal of the hand wound erythema resolved. Left knee with mild erythema on the left medial aspect of the kneecap. Full range of motion of the left knee. CARDIOVASCULAR: Regular rate and rhythm without murmurs, gallops, or rubs. RESPIRATORY: Breath sounds equal bilaterally. No accessory muscle use. GASTROINTESTINAL: Abdomen soft, nondistended. Positive tenderness palpation the right upper quadrant and epigastric area. No peritoneal signs. MUSCULOSKELETAL: No cyanosis, or edema. BACK: Nontender without obvious deformity. No CVA tenderness. NEURO: AAO X 3. Sensation and motor grossly intact. Medications and IVs Current Medications Morphine Sulfate (Morphine Inj) 4 mg ONCE ONCE IV PUSH Last administered on t 21:25; Start 12/25/16 at 21:15; Stop 12/25/16 at 21:16; Status DC Ondansetron HCl 4 mg 4 mg ONCE ONCE IVP Last administered on 12/25/16 21:26; Start 12/25/16 at 21:15; Stop 12/25/16 at 21:16; Status DC Sodium Chloride (NS 1000 ml Inj) 1,000 ml @ 1,000 mls/hr Q1H IV Last administered on 12/25/16 21:25; Start 12/25/16 at 21:09; Stop 12/25/16 at 22:08 ; Status DC Morphine Sulfate (Morphine Inj) 4 mg ONCE ONCE IV PUSH Last administered on 22:03; Start 12/25/16 at 22:00; Stop 12/25/16 at 22:01; Status DC Hydromorphone HCl (Dilaudid Pf Inj) 1 mg ONCE ONCE IV PUSH Last administered on 12/25/16 22:23; Start 12/25/16 at 22:15; Stop 12/25/16 at 22:16; Status DC Iohexol (Omnipaque 350 Inj) 50 ml STK-MED ONCE IV Last administered on 22:32; Start 12/25/16 at 22:32; Stop 12/25/16 at 22:33; Status DC Ondansetron HCl (Zofran Inj) 4 mg ONCE ONCE IV PUSH Last administered on 22:48; Start 12/25/16 at 23:00; Stop 12/25/16 at 23:01; Status DC Hydromorphone HCl (Dilaudid Pf Inj) 1 mg ONCE ONCE IV PUSH Last administered on 12/25/16 23:18; Start 12/25/16 at 23:15; Stop 12/25/16 at 23:16; Status DC Promethazine HCl 25 mg 25 mg ONCE ONCE IM Last administered on 12/25/16 23:18 ; Start 12/25/16 at 23:15; Stop 12/25/16 at 23:16; Status DC Sodium Chloride 1,000 ml @ 999 mls/hr BOLUS ONCE IV Last administered on 12/26 01:08; Start 12/26/16 at 00:45; Stop 12/26/16 at 01:45; Status DC Piperacillin Sod/ Tazobactam Sod (Zosyn 4.5 Gm Premix) 100 ml @ 200 mls/hr ONCE ONCE IV Last administered on 12/26/16 01:08; Start 12/26/16 at 00:45; Stop 12/26/16 at 01:14; Status DC Hydromorphone HCl 2 mg 2 mg ONCE ONCE IV PUSH Last administered on 12/26/16 01:09; Start 12/26/16 at 00:45; Stop 12/26/16 at 00:48; Status DC Sodium Chloride (NS 1000 ml Inj) 1,000 ml @ 100 mls/hr Q10H IV Last administered on 12/30/16 11:37; Start 12/26/16 at 00:57 Sodium Chloride (NS Flush) 2 ml UNSCH PRN IV FLUSH FLUSH AFTER USING IV ACCESS ; Start 12/26/16 at 01:00 Sodium Chloride (NS Flush) 2 ml BID IV FLUSH Last administered on 12/29/16 20: 07; Start 12/26/16 at 09:00 Ondansetron HCl (Zofran Inj) 4 mg Q6H PRN IVP NAUSEA OR VOMITING Last administered on 12/28/16 09:29; Start 12/26/16 at 01:00 Naloxone HCl 0.4 mg 0.4 mg UNSCH PRN IV SEE LABEL COMMENTS; Start 12/26/16 at 01:00 Piperacillin Sod/ Tazobactam Sod (Zosyn 4.5 Gm Premix) 100 ml @ 200 mls/hr Q6H IV Last administered on 12/30/16 11:45; Start 12/26/16 at 06:00 Hydralazine HCl (Apresoline Inj) 10 mg ONCE ONCE IV PUSH Last administered on 12/26/16 03:13; Start 12/26/16 at 03:15; Stop 12/26/16 at 03:16; Status DC Lorazepam 1 mg 1 mg Q15M PRN IV PUSH seizrues Last administered on 12/26/16 04 :10; Start 12/26/16 at 04:00 Pharmacy Profile Note 0 ml @ 0 mls/hr UNSCH OTHER ; Start 12/26/16 at 04:00; Stop 12/26/16 at 09:44; Status DC Vancomycin HCl/ Sodium Chloride (Vancomycin Inj/ NS 250 ml Inj) 262.5 ml @ 250 mls/hr ONCE ONCE IV Last administered on 12/26/16 05:00; Start 12/26/16 at 05 :00; Stop 12/26/16 at 06:02; Status DC Miscellaneous Information 1 Q361D XX Last administered on 12/26/16 05:00; Start 12/26/16 at 05:00 Chlorhexidine Gluconate (Chlorhexidine 2% Cloth) 3 pack Taper DAILY@04 TOP ; Start 12/27/16 at 04:00; Stop 12/23/17 at 03:59 Chlorhexidine Gluconate 3 pack 3 pack UNSCH PRN TOP HYGIENIC CARE; Start at 05:00 Vancomycin HCl/ Sodium Chloride (Vancomycin Inj/ NS 500 ml Inj) 515 ml @ 250 mls/hr Q12H IV ; Start 12/26/16 at 13:00; Stop 12/26/16 at 13:00; Status DC Miscellaneous Information SPECIFIC LAB TO BE DRAWN:PHARMACY CONSULT DATE TO... ONCE ONCE .XX ; Start 12/27/16 at 12:45; Stop 12/27/16 at 12:46; Status Cancel Amlodipine Besylate 10 mg 10 mg DAILY PO Last administered on 12/30/16 07:31; Start 12/26/16 at 10:00 Pharmacy Profile Note 0 ml @ 0 mls/hr UNSCH OTHER ; Start 12/26/16 at 12:00 Vancomycin HCl/ Sodium Chloride (Vancomycin Inj/ NS 500 ml Inj) 515 ml @ 250 mls/hr Q12H IV Last administered on 12/28/16 04:00; Start 12/26/16 at 14:00; Stop 12/28/16 at 09:29; Status DC Miscellaneous Information SPECIFIC LAB TO BE DRAWN:VANCOMYCIN TROUGH DATE TO... ONCE ONCE .XX Last administered on 12/28/16 01:45; Start 12/28/16 at 01:45; Stop 12/28/16 at 01:46; Status DC Oxycodone HCl (Roxicodone) 10 mg Q4H PRN PO PAIN 8-10 Last administered on 12/30 11:47; Start 12/26/16 at 19:45 Oxycodone HCl 5 mg 5 mg Q4H PRN PO PAIN 1-7; Start 12/26/16 at 19:45 Vancomycin HCl/ Sodium Chloride (Vancomycin Inj/ NS 250 ml Inj) 262.5 ml @ 250 mls/hr Q12H IV Last administered on 12/30/16 01:31; Start 12/28/16 at 14:00; Stop 12/30/16 at 11:39; Status DC Miscellaneous Information SPECIFIC LAB TO BE DRAWN:VANCOMYCIN TROUGH DATE TO... ONCE ONCE .XX Last administered on 12/30/16 01:32; Start 12/30/16 at 01:45; Stop 12/30/16 at 01:46; Status DC Gadodiamide 16 ml 16 ml STK-MED ONCE IV Last administered on 12/29/16 14:43; Start 12/29/16 at 14:43; Stop 12/29/16 at 14:44; Status DC Vancomycin HCl/ Sodium Chloride (Vancomycin Inj/ NS 500 ml Inj) 515 ml @ 257.5 mls/ hr Q24H IV ; Start 12/31/16 at 02:00 Miscellaneous Information SPECIFIC LAB TO BE AMAYA... ONCE ONCE .XX ; Start 01/03 at 01:45; Stop 01/03/17 at 01:46 A/P Problem List: (1) Transaminitis ICD Code: R74.0 Status: Acute (2) Seizure ICD Code: R56.9 Status: Acute (3) Leukocytosis ICD Code: D72.829 Status: Acute (4) Lactic acidosis ICD Code: E87.2 Status: Acute Assessment and Plan 56 y/o male with a history of HTN, asthma, Gerd, and renal cell carcinoma presented to the ED with complaints of nausea, vomiting and abdominal pain. During examination patient began to have a seizure and became post-ictal. Transaminitis, AST 206, ALT 437 Gallbladder US reviewed and shows Echogenic foci within the gallbladder lumen suggests multiple stones and there is a positive sonographic Crook's sign. Normal dimension common hepatic duct. -Patient is symptomatic with elevated WBC initially. WBC is improving. -GI consulted and following. -Ethanol level negative. Positive for hepatitis C. LFTs mildly elevated today. -MRCP showed pericholecystic fluid. Apparent gallstones sonographically but well seen by MRI. No duct stone or ductal dilatation. -Patient started on IV Zosyn. -Per GI no indication for ERCP. -Patient is scheduled for surgery on Sunday. Seizure, acute, new onset, no documented history of seizures -Drug-induced. Patient has been stable since admission. -CT brain negative. Troponin negative. -Neurologist consulted. Maybe more syncope. -EEG negative. MRI shows an old intracranial hemorrhage in which patient stated that he does have a history of having trauma to his head. Abnormal signal involving the posterior parietal lobes bilaterally as well as the right cerebellar hemisphere. The findings are not consistent with acute stroke. This could represent gliosis from prior trauma. Headache -Resolved. -Maybe migraine headache. See MRI as above. Improving. Also may be secondary to sinusitis. Patient is on antibiotics and Flonase. left hand cellulitis/abscess status post I&D and left cellulitis of the lower extremity -Improving on vancomycin. Will switch to doxycycline. Hypertensive urgency -Secondary to noncompliance. -Patient is now normotensive. Continue with amlodipine. DVT prophylaxis: SCDs Discharge Planning Patient is scheduled for surgery on Sunday. Guillermina Cline MD Dec 30, 2016 14:45
[2016-12-30] MEDS: SULFAMETHOXAZOLE-TRIMETHOPRIM DS 800-160 MG TAB PO SCH (20:03)
[2016-12-30 23:51] LABS: HEPATITIS C RNA GENOTYPE 1a (())
[2016-12-31] VITALS (7 sets, daily range): BP systolic 120–133; BP diastolic 76–86; PULSE 56–71; RESP 16–20; TEMP 97.8–98.6; O2SAT 96–98
[2016-12-31] MEDS: PIPERACIL-TAZO 4.5 GM PREMIX 100 ML IV SCH ×4 (00:44→17:26)
[2016-12-31] MEDS: SODIUM CHLOR 0.9% 1000 ML INJ 1,000 ML IV SCH ×3 (00:57→20:16)
[2016-12-31] MEDS ORDERED: VANCOMYCIN 1,500 MG/NS 500 ML IV SCH ×2 (02:00)
[2016-12-31 03:49] LABS: MITOCHONDRIAL ABS LESS THAN 20.0 U (())
[2016-12-31] MEDS: CHLORHEXIDINE GLUCONATE 2 % 1 PACK (2 CLOTHS) TOP SCH (04:00)
[2016-12-31 04:56] LABS: INDIRECT BILIRUBIN 0.4 MG/DL (0.0-0.8); TOTAL BILIRUBIN ADULT 0.7 MG/DL (0.2-1.0)
[2016-12-31] MEDS: SULFAMETHOXAZOLE-TRIMETHOPRIM DS 800-160 MG TAB PO SCH ×2 (09:00→20:15)
[2016-12-31] MEDS: SODIUM CHLORIDE 0.9% FLUSH 10 ML FLUSH IV FLUSH SCH ×2 (09:00→20:16)
--- NOTE | 2016-12-31 14:43 | HHI.PR ---
Subjective Remarks Follow-up for abdominal pain Patient stated that he feels sore in the epigastric and right upper quadrant area. He remains afebrile. Denied nausea/ vomiting. Tolerating oral intake. Patient very anxious for surgery tomorrow. Objective Vitals Vital Signs Date Time Temp Pulse Resp B/P (MAP) Pulse Ox O2 Delivery O2 Flow Rate FiO2 12/31/16 13:35 98.5 69 16 125/78 (94) 98 12/31/16 07:44 98.6 64 16 133/79 (97) 96 12/31/16 04:00 98.6 59 20 120/81 (94) 97 12/31/16 00:00 98.0 57 20 125/86 (99) 96 12/30/16 19:50 98.6 62 20 122/79 (93) 98 12/30/16 16:00 98.4 81 18 126/83 (97) 97 I/O 12/30/16 12/30/16 12/30/16 12/31/16 12/31/16 12/31/16 07:00 15:00 23:00 07:00 15:00 23:00 Intake Total 1280 ml 831 ml 360 ml Output Total 1000 ml 400 ml 900 ml Balance 280 ml 431 ml -540 ml Intake Oral 220 ml 360 ml IV Total 1280 ml 611 ml Output Urine Total 1000 ml 400 ml 900 ml # Bowel Movements 0 0 Result Diagram: 12/29/16 1108 12/29/16 1108 Objective Remarks GENERAL: in NAD SKIN: Right dorsal of the hand wound erythema resolved. Left knee with mild erythema on the left medial aspect of the kneecap. Full range of motion of the left knee. CARDIOVASCULAR: Regular rate and rhythm without murmurs, gallops, or rubs. RESPIRATORY: Breath sounds equal bilaterally. No accessory muscle use. GASTROINTESTINAL: Abdomen soft, nondistended. Positive tenderness palpation the right upper quadrant and epigastric area. No peritoneal signs. MUSCULOSKELETAL: No cyanosis, or edema. BACK: Nontender without obvious deformity. No CVA tenderness. NEURO: AAO X 3. Sensation and motor grossly intact. Medications and IVs Current Medications Morphine Sulfate (Morphine Inj) 4 mg ONCE ONCE IV PUSH Last administered on t 21:25; Start 12/25/16 at 21:15; Stop 12/25/16 at 21:16; Status DC Ondansetron HCl (Zofran Inj) 4 mg ONCE ONCE IVP Last administered on 21:26; Start 12/25/16 at 21:15; Stop 12/25/16 at 21:16; Status DC Sodium Chloride 1,000 ml @ 1,000 mls/hr Q1H IV Last administered on 12/25/16 21:25; Start 12/25/16 at 21:09; Stop 12/25/16 at 22:08; Status DC Morphine Sulfate (Morphine Inj) 4 mg ONCE ONCE IV PUSH Last administered on 22:03; Start 12/25/16 at 22:00; Stop 12/25/16 at 22:01; Status DC Hydromorphone HCl (Dilaudid Pf Inj) 1 mg ONCE ONCE IV PUSH Last administered on 12/25/16 22:23; Start 12/25/16 at 22:15; Stop 12/25/16 at 22:16; Status DC Iohexol (Omnipaque 350 Inj) 50 ml STK-MED ONCE IV Last administered on 22:32; Start 12/25/16 at 22:32; Stop 12/25/16 at 22:33; Status DC Ondansetron HCl (Zofran Inj) 4 mg ONCE ONCE IV PUSH Last administered on 22:48; Start 12/25/16 at 23:00; Stop 12/25/16 at 23:01; Status DC Hydromorphone HCl (Dilaudid Pf Inj) 1 mg ONCE ONCE IV PUSH Last administered on 12/25/16 23:18; Start 12/25/16 at 23:15; Stop 12/25/16 at 23:16; Status DC Promethazine HCl (Phenergan Inj) 25 mg ONCE ONCE IM Last administered on 23:18; Start 12/25/16 at 23:15; Stop 12/25/16 at 23:16; Status DC Sodium Chloride 1,000 ml @ 999 mls/hr BOLUS ONCE IV Last administered on 12/26 01:08; Start 12/26/16 at 00:45; Stop 12/26/16 at 01:45; Status DC Piperacillin Sod/ Tazobactam Sod 100 ml @ 200 mls/hr ONCE ONCE IV Last administered on 12/26/16 01:08; Start 12/26/16 at 00:45; Stop 12/26/16 at 01:14 ; Status DC Hydromorphone HCl (Dilaudid Pf Inj) 2 mg ONCE ONCE IV PUSH Last administered on 12/26/16 01:09; Start 12/26/16 at 00:45; Stop 12/26/16 at 00:48; Status DC Sodium Chloride 1,000 ml @ 100 mls/hr Q10H IV Last administered on 12/30/16 14:57; Start 12/26/16 at 00:57 Sodium Chloride (NS Flush) 2 ml UNSCH PRN IV FLUSH FLUSH AFTER USING IV ACCESS ; Start 12/26/16 at 01:00 Sodium Chloride (NS Flush) 2 ml BID IV FLUSH Last administered on 12/29/16 20: 07; Start 12/26/16 at 09:00 Ondansetron HCl (Zofran Inj) 4 mg Q6H PRN IVP NAUSEA OR VOMITING Last administered on 12/28/16 09:29; Start 12/26/16 at 01:00 Naloxone HCl (Narcan Inj) 0.4 mg UNSCH PRN IV SEE LABEL COMMENTS; Start at 01:00 Piperacillin Sod/ Tazobactam Sod 100 ml @ 200 mls/hr Q6H IV Last administered on 12/31/16 04:47; Start 12/26/16 at 06:00 Hydralazine HCl (Apresoline Inj) 10 mg ONCE ONCE IV PUSH Last administered on 12/26/16 03:13; Start 12/26/16 at 03:15; Stop 12/26/16 at 03:16; Status DC Lorazepam (Ativan Inj) 1 mg Q15M PRN IV PUSH seizrues Last administered on 12/26 04:10; Start 12/26/16 at 04:00 Pharmacy Profile Note 0 ml @ 0 mls/hr UNSCH OTHER ; Start 12/26/16 at 04:00; Stop 12/26/16 at 09:44; Status DC Vancomycin HCl 1250 mg/Sodium Chloride 262.5 ml @ 250 mls/hr ONCE ONCE IV Last administered on 12/26/16 05:00; Start 12/26/16 at 05:00; Stop 12/26/16 at 06:02; Status DC Miscellaneous Information 1 Q361D XX Last administered on 12/26/16 05:00; Start 12/26/16 at 05:00 Chlorhexidine Gluconate (Chlorhexidine 2% Cloth) 3 pack Taper DAILY@04 TOP ; Start 12/27/16 at 04:00; Stop 12/23/17 at 03:59 Chlorhexidine Gluconate (Chlorhexidine 2% Cloth) 3 pack UNSCH PRN TOP HYGIENIC CARE; Start 12/26/16 at 05:00 Vancomycin HCl 1500 mg/Sodium Chloride 515 ml @ 250 mls/hr Q12H IV ; Start at 13:00; Stop 12/26/16 at 13:00; Status DC Miscellaneous Information SPECIFIC LAB TO BE DRAWN:PHARMACY CONSULT DATE TO... ONCE ONCE .XX ; Start 12/27/16 at 12:45; Stop 12/27/16 at 12:46; Status Cancel Amlodipine Besylate (Norvasc) 10 mg DAILY PO Last administered on 12/30/16 07: 31; Start 12/26/16 at 10:00 Pharmacy Profile Note 0 ml @ 0 mls/hr UNSCH OTHER ; Start 12/26/16 at 12:00; Stop 12/30/16 at 14:46; Status DC Vancomycin HCl 1500 mg/Sodium Chloride 515 ml @ 250 mls/hr Q12H IV Last administered on 12/28/16 04:00; Start 12/26/16 at 14:00; Stop 12/28/16 at 09:29 ; Status DC Miscellaneous Information SPECIFIC LAB TO BE DRAWN:VANCOMYCIN TROUGH DATE TO... ONCE ONCE .XX Last administered on 12/28/16 01:45; Start 12/28/16 at 01:45; Stop 12/28/16 at 01:46; Status DC Oxycodone HCl (Roxicodone) 10 mg Q4H PRN PO PAIN 8-10 Last administered on 12/31 04:47; Start 12/26/16 at 19:45 Oxycodone HCl (Roxicodone) 5 mg Q4H PRN PO PAIN 1-7; Start 12/26/16 at 19:45 Vancomycin HCl 1250 mg/Sodium Chloride 262.5 ml @ 250 mls/hr Q12H IV Last administered on 12/30/16 01:31; Start 12/28/16 at 14:00; Stop 12/30/16 at 11:39 ; Status DC Miscellaneous Information SPECIFIC LAB TO BE DRAWN:VANCOMYCIN TROUGH DATE TO... ONCE ONCE .XX Last administered on 12/30/16 01:32; Start 12/30/16 at 01:45; Stop 12/30/16 at 01:46; Status DC Gadodiamide (Omniscan Pf Inj) 16 ml STK-MED ONCE IV Last administered on 14:43; Start 12/29/16 at 14:43; Stop 12/29/16 at 14:44; Status DC Vancomycin HCl 1500 mg/Sodium Chloride 515 ml @ 257.5 mls/ hr Q24H IV ; Start 12/31/16 at 02:00; Stop 12/31/16 at 02:00; Status DC Miscellaneous Information SPECIFIC LAB TO BE AMAYA... ONCE ONCE .XX ; Start 01/03 at 01:45; Stop 01/03/17 at 01:46 Trimethoprim/ Sulfamethoxazole (Bactrim Ds 800-160 Mg) 1 tab Q12HR PO Last administered on 12/30/16 20:03; Start 12/30/16 at 21:00 A/P Problem List: (1) Transaminitis ICD Code: R74.0 - Nonspecific elevation of levels of transaminase and lactic acid dehydrogenase [LDH] Status: Acute (2) Seizure ICD Code: R56.9 - Unspecified convulsions Status: Acute (3) Leukocytosis ICD Code: D72.829 - Elevated white blood cell count, unspecified Status: Acute (4) Lactic acidosis ICD Code: E87.2 - Acidosis Status: Acute Assessment and Plan 56 y/o male with a history of HTN, asthma, Gerd, and renal cell carcinoma presented to the ED with complaints of nausea, vomiting and abdominal pain. During examination patient began to have a seizure and became post-ictal. Hepatitis, AST 206, ALT 437 improving Gallbladder US reviewed and shows Echogenic foci within the gallbladder lumen suggests multiple stones and there is a positive sonographic Crook's sign. Normal dimension common hepatic duct. -Patient is symptomatic with elevated WBC initially. WBC is improving. -GI consulted and following. -Ethanol level negative. Positive for hepatitis C. genotype 1A, HCV RNA [id number]. -MRCP showed pericholecystic fluid. Apparent gallstones sonographically but well seen by MRI. No duct stone or ductal dilatation. -Patient started on IV Zosyn. -Per GI no indication for ERCP. -Patient is scheduled for surgery tomorrow. Seizure, acute, new onset, no documented history of seizures -Drug-induced. Patient has been stable since admission. -CT brain negative. Troponin negative. -Neurologist consulted. Maybe more syncope. -EEG negative. MRI shows an old intracranial hemorrhage in which patient stated that he does have a history of having trauma to his head. Abnormal signal involving the posterior parietal lobes bilaterally as well as the right cerebellar hemisphere. The findings are not consistent with acute stroke. This could represent gliosis from prior trauma. Headache -Resolved. -Maybe migraine headache. See MRI as above. Improving. Also may be secondary to sinusitis. Patient is on antibiotics and Flonase. left hand cellulitis/abscess status post I&D and left cellulitis of the lower extremity -Status post vancomycin. Now on Doxy and continues to do well. Hypertensive urgency -Secondary to noncompliance. -Patient is now normotensive. Continue with amlodipine. DVT prophylaxis: SCDs Discharge Planning Patient is scheduled for surgery tomorrow. Guillermina Cline MD Dec 31, 2016 2:43 pm
[2017-01-01] VITALS (7 sets, daily range): BP systolic 115–137; BP diastolic 68–90; PULSE 58–100; RESP 18–20; TEMP 98.2–98.9; O2SAT 96–99
[2017-01-01] MEDS: PIPERACIL-TAZO 4.5 GM PREMIX 100 ML IV SCH ×4 (00:08→23:17)
[2017-01-01] MEDS: CHLORHEXIDINE GLUCONATE 2 % 1 PACK (2 CLOTHS) TOP SCH ×2 (04:00→23:18)
[2017-01-01] MEDS: SODIUM CHLOR 0.9% 1000 ML INJ 1,000 ML IV SCH ×3 (05:21→23:20)
[2017-01-01] MEDS ORDERED: SODIUM CHLORID 0.9% 500 ML IV PRN (05:45)
[2017-01-01] MEDS ORDERED: POVIDONE IODINE 5% (ANTISEPSIS KIT) 4 APPLICATIONS EACH NARE PRN (05:45)
[2017-01-01] MEDS ORDERED: LACTATED RINGER'S 1000 ML IV PRN (05:45)
[2017-01-01] MEDS ORDERED: INSULIN HUMAN REGULAR 1,000 UNITS/10 ML VIAL SQ PRN (05:45)
[2017-01-01] MEDS ORDERED: CHLORHEXIDINE GLUCONATE 2 % 1 PACK (2 CLOTHS) TOPICAL PRN (05:45)
[2017-01-01] MEDS ORDERED: ACETAMINOPHEN 1000 MG/100 ML VIAL IV ONE (10:37)
[2017-01-01] MEDS ORDERED: BUPIVACAINE/EPINEPHRINE 0.25% 50 ML VIAL ONE (11:28)
[2017-01-01] MEDS ORDERED: DO NOT ADM ANY ANTICOAGULANT DRUGS PRN (11:49)
[2017-01-01] MEDS ORDERED: MIDAZOLAM HCL 2 MG/2 ML VIAL ONE (11:54)
[2017-01-01] MEDS ORDERED: fentaNYL CITRATE 250 MCG/5 ML AMP ONE (11:54)
[2017-01-01] MEDS ORDERED: *morphine SULFATE 8 MG/ML PERIprocedure ONLY ONE ×3 (11:59→12:40)
[2017-01-01] MEDS ORDERED: PROPOFOL 200 MG/20 ML AMP IV ONE (12:00)
[2017-01-01] MEDS ORDERED: NEOSTIGMINE 3 MG/3 ML SYR IV ONE (12:00)
[2017-01-01] MEDS ORDERED: ONDANSETRON HCL 4 MG/2 ML VIAL IV PUSH ONE (12:00)
[2017-01-01] MEDS ORDERED: *HYDROmorphone PF 1 MG VIAL PERIprocedural Use ONLY ONE (12:20)
--- NOTE | 2017-01-01 12:42 | MP ---
cc: ALLY ESTRELLA DATE OF SURGERY: 01/01/2017 PREOPERATIVE DIAGNOSIS Acute cholecystitis. POSTOPERATIVE DIAGNOSIS Acute cholecystitis. PROCEDURE Laparoscopic cholecystectomy. ATTENDING SURGEON Dr. Estrella. [employer] Staff. ANESTHESIA General. COMPLICATIONS None. BLOOD LOSS Less than 10 ccs. FINDINGS Chronic and acute inflammation of the gallbladder, mild to moderate amount with no large gallstones, also some cirrhotic and fibrotic changes of the liver, some small omental adhesions in the midline from previous abdominal surgery. INDICATIONS FOR PROCEDURE The patient is a 56-year-old male who presented to [facility] with right upper quadrant pain. The patient also had some seizure activity and required workup for his seizure activity which was found to be a benign cause. He was cleared for elective cholecystectomy by medicine and neurology. Risks, benefits, alternatives including neurologic complications of anesthesia were discussed with the patient in detail prior to procedure and the patient agreed to undergo the procedure laparoscopic cholecystectomy. PROCEDURE The patient was taken to the operating room and placed in supine position, placed under general endotracheal anesthesia. The patient underwent timeout procedure verifying appropriate procedure and the patient. We then entered the abdomen through the left of the midline with a 5 mm OptiVu entry. We entered the abdomen without difficulty and insufflated the abdomen. The scar tissue was only at the midline as suspected and we had no evidence of any complication from entry. Placed a 10-mm port in the subxiphoid position and two 5 mm ports, one in left upper quadrant and one in the periumbilical area ensuring to avoid any areas of adhesions. We then turned our attention towards the surgery and cholecystectomy. We grasped the dome of the gallbladder, retracted it upward. We dissected the triangle of [place] using the hook electrocautery as well as the [place] dissector. We doubly clipped the cystic duct proximal and cystic duct distally with hemoclips once the critical view of safety was obtained. Also clipped the cystic artery which was seen branching off of the right hepatic with one clip proximal, one clip distal. Again these were divided with laparoscopic Endo landen. We used hook electrocautery to take the gallbladder off the gallbladder fossa. The gallbladder was removed from the abdomen with the EndoCatch bag through the subxiphoid port. We had excellent hemostasis with small amount of cautery done at the liver bed. There was zero bleeding or blood clots and zero spillage of bile or blood during the case. At this point in time we turned our attention towards completion. We removed ports out of the abdomen under visualization with laparoscope and expressed pneumoperitoneum. We closed the 10 mm subxiphoid port with a [id number] Vicryl suture. We closed the skin with 4-0 Monocryl and Dermabond. The patient was discontinued from anesthesia and taken to PACU in stable condition. The patient tolerated the procedure well with no apparent complications. All counts were correct and I was present and scrubbed for the entire procedure. MD ELIZABETH Mei/TISHAL /11:29 AM /12:21 PM
--- NOTE | 2017-01-01 15:10 | HHI.PR ---
Subjective Remarks Follow-up hepatitis/cholelithiasis 01/01/17-patient seen and examined, he is status post lap cholecystectomy. He complains of soreness Objective Vitals Vital Signs Date Time Temp Pulse Resp B/P (MAP) Pulse Ox O2 Delivery O2 Flow Rate FiO2 01/01/17 08:08 98.9 73 18 130/90 (103) 98 01/01/17 07:00 58 01/01/17 04:43 98.5 66 18 115/68 (84) 97 01/01/17 01:01 98.4 77 20 115/70 (85) 96 12/31/16 20:00 97.8 71 18 129/81 (97) 96 12/31/16 16:10 98.6 68 17 121/76 (91) 98 I/O 12/31/16 12/31/16 12/31/16 01/01/17 01/01/17 01/01/17 07:00 15:00 23:00 07:00 15:00 23:00 Intake Total 831 ml 360 ml 1352 ml 960 ml 700 ml Output Total 400 ml 900 ml Balance 431 ml -540 ml 1352 ml 960 ml 700 ml Intake Oral 220 ml 360 ml IV Total 611 ml 1352 ml 960 ml 700 ml Output Urine Total 400 ml 900 ml # Voids 2 # Bowel Movements 0 0 1 Result Diagram: 12/29/16 1108 12/29/16 1108 Imaging Last Impressions Brain MRI 12/29/16 0000 Signed Impressions: Service Date/Time: Thursday, December 29, 2016 12:31 - CONCLUSION: Evolving hemorrhages as described above. I do not see in the new lesions. I do not see anything to suggest metastatic disease. 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 Intracranial circulation is otherwise widely patent. Sushant Tee MD Head CT 12/26/16 0000 Signed Impressions: Service Date/Time: Monday, December 26, 2016 04:06 - CONCLUSION: Negative noncontrast CT brain. Sincere Jasso MD Cholangiopancreatography MRI 12/26/16 0000 Signed Impressions: Service Date/Time: Monday, December 26, 2016 21:24 - CONCLUSION: Pericholecystic fluid. Apparent gallstones sonographically but well seen by MRI. No duct stone or ductal dilatation. Nate Herring MD Cervical Spine MRI 12/26/16 0000 Signed Impressions: Service Date/Time: Monday, December 26, 2016 12:33 - CONCLUSION: 1. Mild spinal stenosis and bilateral neuroforaminal narrowing at C4-5. 2. Cervical spondylosis at C4-5. Cezar Russell MD Chest X-Ray 12/25/162108 Signed Impressions: Service Date/Time: Sunday, December 25, 2016 21:15 - CONCLUSION: No significant change mild right lower lobe infiltrate. Nate Herring MD Abdomen/Pelvis CT 12/25/162108 Signed Impressions: Service Date/Time: Sunday, December 25, 2016 22:30 - CONCLUSION: No acute abnormality demonstrated. 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 Lower lumbar degenerative changes as above. Nate Herring MD Gall Bladder Ultrasound 12/25/16 0000 Signed Impressions: Service Date/Time: Sunday, December 25, 2016 23:00 - CONCLUSION: Echogenic foci within the gallbladder lumen suggests multiple stones and there is a positive sonographic Crook's sign. Normal dimension common hepatic duct. Sincere Jasso MD Objective Remarks GENERAL: NAD SKIN: Warm and dry. HEAD: Normocephalic. EYES: No scleral icterus. No injection or drainage. NECK: Supple, trachea midline. No JVD or lymphadenopathy. CARDIOVASCULAR: Regular rate and rhythm without murmurs, gallops, or rubs. RESPIRATORY: Breath sounds equal bilaterally. No accessory muscle use. GASTROINTESTINAL: Abdomen soft, mildly tender, nondistended. inc c/d/i MUSCULOSKELETAL: No cyanosis, or edema. BACK: Nontender without obvious deformity. No CVA tenderness. A/P Problem List: (1) Transaminitis ICD Code: R74.0 - Nonspecific elevation of levels of transaminase and lactic acid dehydrogenase [LDH] Status: Acute (2) Seizure ICD Code: R56.9 - Unspecified convulsions Status: Acute (3) Leukocytosis ICD Code: D72.829 - Elevated white blood cell count, unspecified Status: Acute (4) Lactic acidosis ICD Code: E87.2 - Acidosis Status: Acute Assessment and Plan 56-year-old man with Hepatitis, AST 206, ALT 437 improving Gallbladder US reviewed and shows Echogenic foci within the gallbladder lumen suggests multiple stones and there is a positive sonographic Crook's sign. Normal dimension common hepatic duct. -GI ff -Ethanol level negative. Positive for hepatitis C. genotype 1A, HCV RNA [id number]. -Patient started on IV Zosyn. -Status post lap cholecystectomy 01/01/17 Seizure, acute, new onset, no documented history of seizures -Drug-induced. -CT brain negative. -Neurologist consulted. -EEG negative. Headache -Resolved. left hand cellulitis/abscess status post I&D and left cellulitis of the lower extremity -Status post vancomycin. Improving on doxy Hypertensive urgency-resolved - Continue with amlodipine. DVT prophylaxis: Marcos Conde MD Jan 01, 2017 15:10
[2017-01-01] MEDS: SODIUM CHLORIDE 0.9% FLUSH 10 ML FLUSH IV FLUSH SCH (20:19)
[2017-01-01] MEDS: SULFAMETHOXAZOLE-TRIMETHOPRIM DS 800-160 MG TAB PO SCH (20:21)
[2017-01-01] MEDS: MORPHINE SULFATE 4 MG/ML INJ IV PRN (23:09)
[2017-01-02] VITALS: BP 132/74; PULSE 82; RESP 18; TEMP 98.5; O2SAT 97
[2017-01-02 03:25] VITALS: BP 131/86; PULSE 74; RESP 18; TEMP 98.6; O2SAT 97
[2017-01-02] MEDS: MORPHINE SULFATE 4 MG/ML INJ IV PRN ×2 (03:36→09:33)
[2017-01-02] MEDS: PIPERACIL-TAZO 4.5 GM PREMIX 100 ML IV SCH (06:52)
[2017-01-02 08:30] VITALS: BP 145/76; PULSE 85; RESP 20; TEMP 98.4; O2SAT 97
[2017-01-02] MEDS: SODIUM CHLORIDE 0.9% FLUSH 10 ML FLUSH IV FLUSH SCH (09:00)
[2017-01-02] MEDS: SULFAMETHOXAZOLE-TRIMETHOPRIM DS 800-160 MG TAB PO SCH (09:31)
[2017-01-02 10:19] VITALS: O2SAT 97
--- NOTE | 2017-01-02 12:14 | HHI.PR ---
Subjective Remarks Follow-up hepatitis/cholelithiasis 01/01/17-patient seen and examined, he is status post lap cholecystectomy. He complains of soreness 01/02/17-patient seen and examined, still complains of abdominal soreness otherwise no nausea or vomiting. Currently afebrile. Objective Vitals Vital Signs Date Time Temp Pulse Resp B/P (MAP) Pulse Ox O2 Delivery O2 Flow Rate FiO2 01/02/17 10:19 97 Nasal Cannula 2.00 01/02/17 08:30 98.4 85 20 145/76 (99) 97 01/02/17 03:25 98.6 74 18 131/86 (101) 97 01/02/17 00:00 98.5 82 18 132/74 (93) 97 01/01/17 20:35 100 01/01/17 20:00 98.2 85 18 137/76 (96) 97 01/01/17 16:03 98.9 83 18 131/79 (96) 99 01/01/17 13:30 80 15 120/71 (87) 100 Nasal Cannula 2 01/01/17 13:15 80 15 120/71 (87) 100 Nasal Cannula 2 01/01/17 13:00 78 12 116/69 (85) 100 Nasal Cannula 2 01/01/17 12:45 74 13 121/70 (87) 100 Nasal Cannula 2 01/01/17 12:30 74 15 132/76 (94) 100 Nasal Cannula 2 01/01/17 12:15 74 16 139/79 (99) 100 Nasal Cannula 2 I/O 01/01/17 01/01/17 01/01/17 01/02/17 01/02/17 01/02/17 07:00 15:00 23:00 07:00 15:00 23:00 Intake Total 960 ml 900 ml Output Total 350 ml 400 ml Balance 960 ml 900 ml -350 ml -400 ml IV Total 960 ml 900 ml Output Urine Total 350 ml 400 ml # Voids 2 # Bowel Movements 1 Result Diagram: 12/29/16 1108 12/29/16 1108 Imaging Last Impressions Brain MRI 12/29/16 0000 Signed Impressions: Service Date/Time: Thursday, December 29, 2016 12:31 - CONCLUSION: Evolving hemorrhages as described above. I do not see in the new lesions. I do not see anything to suggest metastatic disease. Colten Tee MD FACR Head Magnetic Resonance Angiography 12/26/16 Signed Impressions: Service Date/Time: Monday, December 26, 2016 12:33 - CONCLUSION: 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 Intracranial circulation is otherwise widely patent. Sushant Tee MD Head CT 12/26/16 Signed Impressions: Service Date/Time: Monday, December 26, 2016 04:06 - CONCLUSION: Negative noncontrast CT brain. Sincere Jasso MD Cholangiopancreatography MRI 12/26/16 Signed Impressions: Service Date/Time: Monday, December 26, 2016 21:24 - CONCLUSION: Pericholecystic fluid. Apparent gallstones sonographically but well seen by MRI. No duct stone or ductal dilatation. Nate Herring MD Cervical Spine MRI 12/26/16 Signed Impressions: Service Date/Time: Monday, December 26, 2016 12:33 - CONCLUSION: 1. Mild spinal stenosis and bilateral neuroforaminal narrowing at C4-5. 2. Cervical spondylosis at C4-5. Cezar Russell MD Chest X-Ray 12/25/162108 Signed Impressions: Service Date/Time: Sunday, December 25, 2016 21:15 - CONCLUSION: No significant change mild right lower lobe infiltrate. Nate Herring MD Abdomen/Pelvis CT 12/25/162108 Signed Impressions: Service Date/Time: Sunday, December 25, 2016 22:30 - CONCLUSION: No acute abnormality demonstrated. 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 Lower lumbar degenerative changes as above. Nate Herring MD Gall Bladder Ultrasound 12/25/16 Signed Impressions: Service Date/Time: Sunday, December 25, 2016 23:00 - CONCLUSION: Echogenic foci within the gallbladder lumen suggests multiple stones and there is a positive sonographic Crook's sign. Normal dimension common hepatic duct. Sincere Jasso MD Objective Remarks GENERAL: NAD SKIN: Warm and dry. HEAD: Normocephalic. EYES: No scleral icterus. No injection or drainage. NECK: Supple, trachea midline. No JVD or lymphadenopathy. CARDIOVASCULAR: Regular rate and rhythm without murmurs, gallops, or rubs. RESPIRATORY: Breath sounds equal bilaterally. No accessory muscle use. GASTROINTESTINAL: Abdomen soft, mildly tender, nondistended. inc c/d/i MUSCULOSKELETAL: No cyanosis, or edema. BACK: Nontender without obvious deformity. No CVA tenderness. Procedures Laparoscopic cholecystectomy 01/01/17 A/P Problem List: (1) Transaminitis ICD Code: R74.0 - Nonspecific elevation of levels of transaminase and lactic acid dehydrogenase [LDH] Status: Acute (2) Seizure ICD Code: R56.9 - Unspecified convulsions Status: Acute (3) Leukocytosis ICD Code: D72.829 - Elevated white blood cell count, unspecified Status: Acute (4) Lactic acidosis ICD Code: E87.2 - Acidosis Status: Acute (5) Cholecystitis, acute ICD Code: K81.0 - Acute cholecystitis Assessment and Plan 56-year-old man with Hepatitis, AST 206, ALT 437 improving Gallbladder US reviewed and shows Echogenic foci within the gallbladder lumen suggests multiple stones and there is a positive sonographic Crook's sign. Normal dimension common hepatic duct. Acute cholecystitis -GI ff -Ethanol level negative. Positive for hepatitis C. genotype 1A, HCV RNA [id number]. -Patient started on IV Zosyn. -Status post lap cholecystectomy 01/01/17 Seizure, acute, new onset, no documented history of seizures -Drug-induced. -CT brain negative. -Neurologist consulted. -EEG negative. Headache -Resolved. left hand cellulitis/abscess status post I&D and left cellulitis of the lower extremity -Status post vancomycin. Improving on doxy Hypertensive urgency-resolved - Continue with amlodipine. DVT prophylaxis: Marcos Conde MD Jan 02, 2017 12:14
[2017-01-02 12:17] VITALS: BP 137/94; PULSE 82; RESP 20; TEMP 98.4; O2SAT 98
[2017-01-02] MEDS ORDERED: SULF1TAB23 PO (12:24)
[2017-01-02] MEDS ORDERED: PERI8.6T PO (12:24)
[2017-01-02] MEDS ORDERED: OXYC-392 PO (12:24)
[2017-01-02] MEDS ORDERED: AMLO10 PO (12:24)
--- NOTE | 2017-01-02 12:30 | HHI.DS ---
Discharge Summary Admission Date Dec 26, 2016 at 00:59 Discharge Date: Jan 02, 2017 Admitting Diagnosis Epigastric pain/Chest pain. Intractible Abdominal pain. (1) Transaminitis ICD Code: R74.0 - Nonspecific elevation of levels of transaminase and lactic acid dehydrogenase [LDH] Status: Acute (2) Seizure ICD Code: R56.9 - Unspecified convulsions Status: Acute (3) Leukocytosis ICD Code: D72.829 - Elevated white blood cell count, unspecified Status: Acute (4) Lactic acidosis ICD Code: E87.2 - Acidosis Status: Acute (5) Cholecystitis, acute ICD Code: K81.0 - Acute cholecystitis Procedures Laparoscopic cholecystectomy 01/01/17 Brief History - From Admission Written by CHARLY De Jesus acting as scribe for [Bamng] on 12/26/16 at 03: 18. 56 y/o male with a history of HTN, asthma, Gerd, and renal cell carcinoma presented to the ED with complaints of nausea, vomiting and abdominal pain. Upon examination patient began to talk in circles and complain of all symptoms mentioned. He states 2 weeks ago he was injured at work in his left had, and had an I&D in the hospital and sent home on no antibiotics. He also states at this time he had his Left knee abscess drained as well. He has been unable to follow up with DR because he has no pcp, and no money. He complains of fevers, sob for a while worse over the last month, left calf pain, nausea, vomiting that is worse over the last week, chest pain and dizziness. He denies any change in bowel movements. At about 3:30 am patient's right right arm became contracted and he slurred his speech, and began to have a seizure. Patient did fall off the stretcher but did not hit his head. 2mg of Ativan IV was given and patient became post-ictal. A few mins later he opened his eyes and was startled but unable to talk or state his name. According to EMR patient does not have a history of seizures. CBC/BMP: 12/29/16 1108 12/29/16 1108 Significant Findings Laboratory Tests Test 12/31/16 03:58 Direct Bilirubin 0.3 MG/DL (0.0-0.2) Aspartate Amino Transf (AST/SGOT) 139 U/L (15-37) Alanine Aminotransferase (ALT/SGPT) 293 U/L (12-78) Albumin 2.7 GM/DL (3.4-5.0) Imaging Last Impressions Brain MRI 12/29/16 0000 Signed Impressions: Service Date/Time: Thursday, December 29, 2016 12:31 - CONCLUSION: Evolving hemorrhages as described above. I do not see in the new lesions. I do not see anything to suggest metastatic disease. 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 Intracranial circulation is otherwise widely patent. Sushant Tee MD Head CT 12/26/16 0000 Signed Impressions: Service Date/Time: Monday, December 26, 2016 04:06 - CONCLUSION: Negative noncontrast CT brain. Sincere Jasso MD Cholangiopancreatography MRI 12/26/16 0000 Signed Impressions: Service Date/Time: Monday, December 26, 2016 21:24 - CONCLUSION: Pericholecystic fluid. Apparent gallstones sonographically but well seen by MRI. No duct stone or ductal dilatation. Nate Herring MD Cervical Spine MRI 12/26/16 0000 Signed Impressions: Service Date/Time: Monday, December 26, 2016 12:33 - CONCLUSION: 1. Mild spinal stenosis and bilateral neuroforaminal narrowing at C4-5. 2. Cervical spondylosis at C4-5. Cezar Russell MD Chest X-Ray 12/25/162108 Signed Impressions: Service Date/Time: Sunday, December 25, 2016 21:15 - CONCLUSION: No significant change mild right lower lobe infiltrate. Nate Herring MD Abdomen/Pelvis CT 12/25/162108 Signed Impressions: Service Date/Time: Sunday, December 25, 2016 22:30 - CONCLUSION: No acute abnormality demonstrated. 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 Lower lumbar degenerative changes as above. Nate Herring MD Gall Bladder Ultrasound 12/25/16 0000 Signed Impressions: Service Date/Time: Sunday, December 25, 2016 23:00 - CONCLUSION: Echogenic foci within the gallbladder lumen suggests multiple stones and there is a positive sonographic Crook's sign. Normal dimension common hepatic duct. Sincere Jasso MD PE at Discharge GENERAL: NAD SKIN: Warm and dry. HEAD: Normocephalic. EYES: No scleral icterus. No injection or drainage. NECK: Supple, trachea midline. No JVD or lymphadenopathy. CARDIOVASCULAR: Regular rate and rhythm without murmurs, gallops, or rubs. RESPIRATORY: Breath sounds equal bilaterally. No accessory muscle use. GASTROINTESTINAL: Abdomen soft, mildly tender, nondistended. inc c/d/i MUSCULOSKELETAL: No cyanosis, or edema. BACK: Nontender without obvious deformity. No CVA tenderness. Hospital Course Surgery was consulted secondary to acute cholecystitis and patient underwent lap cholecystectomy on 01/01/17. Secondary to elevated liver enzymes and with finding of hepatitis C gastroenterology was also consulted. He was diagnosed with left hand cellulitis as well as abscess for which he underwent an incision and drainage and treated with IV antibiotics and subsequently switched to by mouth Bactrim which he will complete for 3 more days. He was started on oral antihypertensive medication Norvasc 5 mg daily and remained normotensive throughout hospitalization. DVT and GI prophylaxis were provided. Pt Condition on Discharge: Stable Discharge Disposition: Discharge Home Discharge Time: <= 30 minutes Discharge Instructions DIET: Follow Instructions for: Heart Healthy Diet Activities you can perform: Regular-No Restrictions Follow up Referrals: Gastroenterology PCP Follow-up - 1 Week Surgical New Medications: Sennosides-Docusate Sodium (Susan-Colace) 8.6-50 Mg Tab 1 TAB PO BID PRN for Constipation, #20 TAB 0 Refills Amlodipine (Norvasc) 10 Mg Tab 10 MG PO DAILY for Blood Pressure Management, #30 TAB Oxycodone (Oxycodone) 5 Mg Tab 5 MG PO Q4H PRN for PAIN 1-7, #20 TAB Sulfamethoxazole-Trimethoprim (Sulfamethoxazole-Trimethoprim) 800-160 Mg Tab 1 TAB PO Q12HR for Infection, #6 TAB Marcos Hernandez MD Jan 02, 2017 12:30
--- NOTE | 2017-01-02 13:15 | HHI.PR ---
Subjective Subjective Notes Resting in bed No issues Painful when moving around Objective Vitals/I&O Vital Signs Date Time Temp Pulse Resp B/P (MAP) Pulse Ox O2 Delivery O2 Flow Rate FiO2 01/02/17 12:17 98.4 82 20 137/94 (108) 98 01/02/17 10:19 Nasal Cannula 2.00 Labs Date/Time Source Procedure Growth Status 12/26/16 01:05 Blood Peripheral Aerobic Blood Culture - Final NO GROWTH IN 5 DAYS Complete 12/26/16 01:05 Blood Peripheral Anaerobic Blood Culture - Final NO GROWTH IN 5 DAYS Complete Radiology Last 48 hours Impressions Head Magnetic Resonance Angiography 12/26/16 0000 Signed Impressions: Service Date/Time: Monday, December 26, 2016 12:33 - CONCLUSION: 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 Intracranial circulation is otherwise widely patent. Sushant Tee MD Head CT 12/26/16 0000 Signed Impressions: Service Date/Time: Monday, December 26, 2016 04:06 - CONCLUSION: Negative noncontrast CT brain. Sincere Jasso MD Cholangiopancreatography MRI 12/26/16 0000 Signed Impressions: Service Date/Time: Monday, December 26, 2016 21:24 - CONCLUSION: Pericholecystic fluid. Apparent gallstones sonographically but well seen by MRI. No duct stone or ductal dilatation. Nate Herring MD Cervical Spine MRI 12/26/16 0000 Signed Impressions: Service Date/Time: Monday, December 26, 2016 12:33 - CONCLUSION: 1. Mild spinal stenosis and bilateral neuroforaminal narrowing at C4-5. 2. Cervical spondylosis at C4-5. Cezar Russell MD Brain MRI 12/26/16 0000 Signed Impressions: Service Date/Time: Monday, December 26, 2016 12:33 - CONCLUSION: 1. Abnormal signal involving the posterior parietal lobes bilaterally as well as the right cerebellar hemisphere. The findings are not consistent with acute stroke. This could represent gliosis from prior trauma. I do feel that further characterization of these areas with gadolinium as needed to exclude an infiltrating process. 2. Tiny focus of hemosiderin product associated with the left parietal lobe without acute hemorrhage. This likely represents an old area of hemorrhage. 3. Mild chronic small vessel ischemic change. 4. Left maxillary sinusitis. Sincere Bermudez Jr., MD Chest X-Ray 12/25/162108 Signed Impressions: Service Date/Time: Sunday, December 25, 2016 21:15 - CONCLUSION: No significant change mild right lower lobe infiltrate. Nate Herring MD Abdomen/Pelvis CT 12/25/162108 Signed Impressions: Service Date/Time: Sunday, December 25, 2016 22:30 - CONCLUSION: No acute abnormality demonstrated. 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 Lower lumbar degenerative changes as above. Nate Herring MD Cardiovascular: Regular Lungs: Clear Abdomen: Non-distended, Other (lap sites c/d/i ), Post-op tenderness Extremities: No edema A/P Assessment and Plan 56 year old male s/p seizure with symptomatic cholelithiasis -POD1 lap emelyn -Tolerating diet -Pain control -GS clear for DC -Follow up with Dr. Tsang in 1 week -Discussed with Gabriela Licea Jan 02, 2017 13:15
[2017-01-03] MEDS ORDERED: PHARMACY ORDERED LAB ONE (01:45)
== END 2017-01-02 15:42 | disposition home or self-care (01) | DRG 418 ==
LOC: NEPE 21:01 → NEDA 12-26 00:59 → HIME 12-26 04:20 → N05B 12-26 13:28
PROVIDERS: ADMIT Family Medicine; ATTEND Hospitalist
PROC: 0FT44ZZ Resection of Gallbladder, Percutaneous Endoscopic Approach (ICD-10-PCS; principal; 2017-01-01 10:38)
DX: K80.12 Calculus of gallbladder with acute and chronic cholecystitis without obstruction (principal); E87.2 Acidosis; R56.9 Unspecified convulsions; L03.116 Cellulitis of left lower limb; L03.114 Cellulitis of left upper limb; L02.512 Cutaneous abscess of left hand; I16.0 Hypertensive urgency; B19.20 Unspecified viral hepatitis C without hepatic coma; J45.909 Unspecified asthma, uncomplicated; K21.9 Gastro-esophageal reflux disease without esophagitis; I10 Essential (primary) hypertension; S06.320D Contusion and laceration of left cerebrum without loss of consciousness, subsequent encounter; S13.4XXA Sprain of ligaments of cervical spine, initial encounter; Z85.528 Personal history of other malignant neoplasm of kidney; G43.909 Migraine, unspecified, not intractable, without status migrainosus; W19.XXXA Unspecified fall, initial encounter; M25.78 Osteophyte, vertebrae; Z91.14 Patient's other noncompliance with medication regimen; Z91.81 History of falling; Z88.8 Allergy status to other drugs, medicaments and biological substances
CPT/HCPCS: 70450; 70544; 70551; 70553; 71010; 72141; 74177; 74181; 76377; 76705; 80048; 80053; 80074; 80076; 80202; 80307; 81001; 82103; 82105; 82390; 82550; 82728; 83520; 83540; 83550; 83605; 83690; 84484; 85007; 85027; 85610; 85730; 86038; 86255; 86308; 87040; 87522; 87641; 87902; 88304; 93005; 95819; 96361; 96372; 96374; 96375; 96376; A9579; J0131; J0360; J1170; J2060; J2250; J2270; J2405; J2543; J2550; J2710; J3010; J3370; J7030; J7040; J7050; Q9967

== ENCOUNTER 2017-08-14 22:32 | Inpatient (IN) | payer MEDICAID, OTHER ==
[~2017-08-14] VITALS: Ht 185.4 cm; Wt 79.1 kg
[~2017-08-14 22:32] MED LIST changes: -BACT800T5 PO; +HYDR-3583 PO; +LOSA25TA PO
[2017-08-14 22:39] VITALS: BP 181/109; PULSE 109; RESP 18; TEMP 99.2; O2SAT 98
[2017-08-14] MEDS ORDERED: CLINDAMYCIN INJ 900 MG in SODIUM CHLORIDE 0.9% INJ 100 ML IV STA (22:42)
[2017-08-14 22:48] VITALS: O2SAT 98
[2017-08-14] MEDS ORDERED: ALPR.25 PO (22:50)
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
[2017-08-14 23:00] VITALS: BP 171/95; PULSE 77; RESP 18; O2SAT 100
--- NOTE | 2017-08-14 23:08 | RADRPT ---
EXAM DATE/TIME: 08/14/2017 22:45 [facility] COMPARISON: CHEST SINGLE AP, December 25, 2016, 21:15. INDICATIONS : Fever. Body aches. MEDICAL HISTORY : Hiatal hernia. Hypertension Gastroesophageal reflux disease. Renal Carcinoma. SURGICAL HISTORY : Splenectomy. Appendectomy. Left nephrectomy. ENCOUNTER: Initial ACUITY: 1 day PAIN SCORE: 5/10 LOCATION: Bilateral chest FINDINGS: A single view of the chest demonstrates the lungs to be symmetrically aerated without evidence of mas s, infiltrate or effusion. The cardiomediastinal contours are unremarkable. Osseous structures are intact. CONCLUSION: No acute disease. Nate Gomez MD on August 14, 2017 at 23:05 Board Certified Radiologist. This report was verified electronically.
[2017-08-14 23:19] LABS: AUTOMATED NEUTROPHIL # 7.2 TH/MM3 (1.8-7.7); BASOPHIL # 0.3 TH/MM3 (0-0.2); HEMATOCRIT 38.1 % (39.0-51.0); HEMOGLOBIN 12.7 GM/DL (13.0-17.0); LYMPH % 40.9 % (9.0-44.0); LYMPHOCYTE # 5.8 TH/MM3 (1.0-4.8); MEAN CELL VOLUME 91.8 FL (80.0-100.0); MEAN CORPUSCULAR HEMOGLOBIN 30.6 PG (27.0-34.0); MEAN CORPUSCULAR HGB CONC 33.3 % (32.0-36.0); MONO % 7.3 % (0.0-8.0); NEUT % 49.8 % (16.0-70.0); PLATELET COUNT 327 TH/MM3 (150-450); RED BLOOD COUNT 4.15 MIL/MM3 (4.50-5.90); RED CELL DISTRIBUTION WIDTH 14.1 % (11.6-17.2); WHITE BLOOD COUNT 14.3 TH/MM3 (4.0-11.0)
--- NOTE | 2017-08-14 23:20 | PD ---
Physical Exam Date Seen by Provider: Aug 14, 2017 Time Seen by Provider: 23:14 Narrative accepted in transfer of care from Dr Scott GENERAL: Well-developed well-nourished male no acute distress or respiratory distress SKIN: Warm and dry. Attention right lower extremity proximal knee area of erythema and induration that has been unroofed by previous provider with no active drainage no ascending erythema distal extremities neurovascular tendon intact. drainage. NECK: Supple, trachea midline. No JVD or lymphadenopathy. CARDIOVASCULAR: Regular rate and rhythm without murmurs, gallops, or rubs. RESPIRATORY: Breath sounds equal bilaterally. No accessory muscle use. GASTROINTESTINAL: Abdomen soft, non-tender, nondistended. MUSCULOSKELETAL: No cyanosis, or edema. Data Data Last Documented VS Vital Signs Date Time Temp Pulse Resp B/P (MAP) Pulse Ox O2 Delivery O2 Flow Rate FiO2 08/14/17 22:49 98 Room Air 08/14/17 22:45 88 08/14/17 22:39 99.2 18 181/109 (133) Orders Orders Sepsis Workup Initiated (08/14/17 ) Complete Blood Count With Diff (08/14/17 22:42) Comprehensive Metabolic Panel (08/14/17 22:42) Lactic Acid Sepsis Protocol (08/14/17 22:42) Urinalysis - C+S If Indicated (08/14/17 22:42) Influenzae A/B Antigen (08/14/17 22:42) Blood Culture (08/14/17 22:42) Chest, Single Ap (08/14/17 22:42) Blood Glucose (08/14/17 22:42) Ecg Monitoring (08/14/17 22:42) Iv Access Insert/Monitor (08/14/17 22:42) Oximetry (08/14/17 22:42) Oxygen Administration (08/14/17 22:42) Clindamycin Inj (Cleocin Inj) (08/14/17 22:42) Wound Culture And Gram Stain (08/14/17 22:57) Drug Screen, Random Urine (08/14/17 23:44) Vancomycin Inj (Vancomycin Inj) (08/15/17 00:00) Admit Order (Ed Use Only) (08/15/17 ) Commercial Marketing Specialist / Telemetry [id number] (08/15/17 00:11) Diet Heart Healthy (08/15/17 Breakfast) Activity Oob With Assistance (08/15/17 00:11) Notify Dr: Other (08/15/17 00:11) Labs Laboratory Tests Test 08/14/17 22:55 08/14/17 23:00 White Blood Count 14.3 TH/MM3 Red Blood Count 4.15 MIL/MM3 Hemoglobin 12.7 GM/DL Hematocrit 38.1 % Mean Corpuscular Volume 91.8 FL Mean Corpuscular Hemoglobin 30.6 PG Mean Corpuscular Hemoglobin Concent 33.3 % Red Cell Distribution Width 14.1 % Platelet Count 327 TH/MM3 Mean Platelet Volume 8.0 FL Neutrophils (%) (Auto) 49.8 % Lymphocytes (%) (Auto) 40.9 % Monocytes (%) (Auto) 7.3 % Eosinophils (%) (Auto) 0.0 % Basophils (%) (Auto) 2.0 % Neutrophils # (Auto) 7.2 TH/MM3 Lymphocytes # (Auto) 5.8 TH/MM3 Monocytes # (Auto) 1.0 TH/MM3 Eosinophils # (Auto) 0.0 TH/MM3 Basophils # (Auto) 0.3 TH/MM3 CBC Comment AUTO DIFF Differential Total Cells Counted 100 Neutrophils % (Manual) 33 % Lymphocytes % 65 % Monocytes % 2 % Neutrophils # (Manual) 4.7 TH/MM3 Differential Comment FINAL DIFF MANUAL Platelet Estimate NORMAL Platelet Morphology Comment CLUMPED Red Cell Morphology Comment NORMAL Blood Urea Nitrogen 16 MG/DL Creatinine 1.20 MG/DL Random Glucose 107 MG/DL Total Protein 8.2 GM/DL Albumin 3.9 GM/DL Calcium Level 9.4 MG/DL Alkaline Phosphatase 69 U/L Aspartate Amino Transf (AST/SGOT) 21 U/L Alanine Aminotransferase (ALT/SGPT) 26 U/L Total Bilirubin 0.5 MG/DL Sodium Level 138 MEQ/L Potassium Level 3.9 MEQ/L Chloride Level 102 MEQ/L Carbon Dioxide Level 27.6 MEQ/L Anion Gap 8 MEQ/L Estimat Glomerular Filtration Rate 63 ML/MIN Lactic Acid Level 2.1 mmol/L [facility] Medical Record Reviewed: Yes Supervised Visit with TAMIKA: No Interpretation(s) Lactic acid: 2.1, elevated Influenza antigen: Negative Last Impressions Chest X-Ray 08/14/17 0192 Signed Impressions: Service Date/Time: Monday, August 14, 2017 22:45 - CONCLUSION: No acute disease. Nate Gomez MD CBC & BMP Diagram 08/14/17 22:55 Total Protein 8.2, Albumin 3.9, Calcium Level 9.4, Alkaline Phosphatase 69, Aspartate Amino Transf (AST/SGOT) 21, Alanine Aminotransferase (ALT/SGPT) 26, Total Bilirubin 0.5 Vital Signs Date Time Temp Pulse Resp B/P (MAP) Pulse Ox O2 Delivery O2 Flow Rate FiO2 08/14/17 22:49 98 Room Air 08/14/17 22:48 98 Room Air 08/14/17 22:45 88 99 Room Air 08/14/17 22:39 99.2 109 18 181/109 (133) 98 Differential Diagnosis accepted in transfer of care from Dr Scott; please refer to her dictation Narrative Course accepted in transfer of care from Dr Scott; follow up pending labs -- evaluation for sepsis, reported at transfer patient has received IV clindamycin for superficial knee abscess Sepsis Criteria SIRS Criteria (2 or more): Heart rate over 90, WBC > 65643, < 4000 or > 10% bands Sepsis Criteria (SIRS+source): Infect source susp/known (right knee abscess/ cellulitis) Severe Sepsis (+one): Lactate >2 Criteria Outcome: Meets severe sepsis criteria Physician Communication Physician Communication call placed to [facility] MD Dr Munoz accepts for admission Diagnosis Primary Impression: Abscess of right knee Additional Impression: Sepsis affecting skin Admitting Information Admitting Physician Requests: Admit Lis Higgins MD Aug 14, 2017 23:20
[2017-08-14 23:26] LABS: CHLORIDE 102 MEQ/L (98-107); SODIUM (NA) 138 MEQ/L (136-145)
[2017-08-14 23:29] LABS: CALCIUM 9.4 MG/DL (8.5-10.1)
[2017-08-14 23:30] VITALS: BP 156/102; PULSE 81; RESP 20; O2SAT 100
[2017-08-14 23:30] LABS: ALBUMIN 3.9 GM/DL (3.4-5.0); BICARBONATE 27.6 MEQ/L (21.0-32.0); BLOOD UREA NITROGEN 16 MG/DL (7-18); GLUCOSE,RANDOM 107 MG/DL (74-106)
[2017-08-14 23:32] LABS: ALT (GPT) 26 U/L (12-78)
[2017-08-14 23:33] LABS: AST (GOT) 21 U/L (15-37); GLOMERULAR FILTRATION RATE 63 ML/MIN (>89)
[2017-08-14 23:34] LABS: TOTAL BILIRUBIN ADULT 0.5 MG/DL (0.2-1.0); TOTAL PROTEIN 8.2 GM/DL (6.4-8.2)
[2017-08-14 23:35] LABS: ALKALINE PHOSPHATASE 69 U/L (45-117)
[2017-08-14 23:37] LABS: LACTIC ACID SEPSIS PROTOCOL 2.1 mmol/L (0.4-2.0)
[2017-08-14 23:47] LABS: LYMPHOCYTES 65 % (9-44); MONOCYTES 2 % (0-8); NEUTROPHIL # MANUAL DIFF 4.7 TH/MM3 (1.8-7.7); POLYS (SEG NEUTROPHILS) 33 % (16-70)
[2017-08-15] VITALS (9 sets, daily range): BP systolic 103–169; BP diastolic 68–104; PULSE 59–72; RESP 18–20; TEMP 96.3–100.7; O2SAT 94–100
[2017-08-15] MEDS ORDERED: VANCOMYCIN INJ 1,000 MG in SODIUM CHLOR 0.9% 250 ML INJ 250 ML IV ONE ×2
[2017-08-15] MEDS ORDERED: SODIUM CHLOR 0.9% 1000 ML INJ 1,000 ML IV SCH (00:17)
[2017-08-15 00:18] LABS: BILIRUBIN, URINE NEG (NEG); BLOOD, URINE NEG (NEG); GLUCOSE,URINE NEG (NEG); KETONE, URINE 15 mg/dL (NEG); NITRITE,URINE NEG (NEG); URINE LEUKOCYTE ESTERASE NEG (NEG)
[2017-08-15 00:27] LABS: URINE COLOR AMBER (YELLW/STRAW)
[2017-08-15 00:28] LABS: MUCUS URINE FEW /lpf (OCC)
[2017-08-15 00:29] LABS: RBC, URINE 0-3 /hpf (0-3); SQUAMOUS EPITHELIAL CELL URINE 0-5 /hpf (0-5)
[2017-08-15 00:30] LABS: WBC, URINE 0-2 /hpf (0-5)
[2017-08-15] MEDS ORDERED: BISACODYL 10 MG SUPP RECTAL PRN (00:30)
[2017-08-15] MEDS ORDERED: NALOXONE HCL 0.4 MG/ML AMP IV PUSH PRN (00:30)
[2017-08-15] MEDS ORDERED: ACETAMINOPHEN 325 MG TAB PO PRN (00:30)
[2017-08-15] MEDS ORDERED: ONDANSETRON HCL 4 MG/2 ML VIAL IVP PRN (00:30)
[2017-08-15] MEDS ORDERED: SENNOSIDES 8.6 MG TAB PO PRN (00:30)
[2017-08-15] MEDS ORDERED: LACTULOSE SYRUP 20 GM/30 ML CUP PO PRN (00:30)
[2017-08-15] MEDS ORDERED: Vancomycin Consult Pharmacy 1 EA OTHER SCH (00:30)
[2017-08-15] MEDS ORDERED: SODIUM CHLORIDE 0.9% FLUSH 10 ML FLUSH IV FLUSH PRN (00:30)
[2017-08-15] MEDS: MORPHINE SULFATE 4 MG/ML INJ IV PUSH PRN ×6 (03:08→23:35)
[2017-08-15] MEDS: PIPERACIL-TAZO 3.375 GM PREMIX 50 ML IV SCH ×4 (03:24→17:59)
[2017-08-15] MEDS: SODIUM CHLORIDE 0.9% FLUSH 10 ML FLUSH IV FLUSH SCH ×2 (08:25→20:13)
[2017-08-15] MEDS: LOSARTAN 25 MG TAB PO SCH (08:26)
[2017-08-15] MEDS: DOCUSATE SODIUM 50 MG/SENNA 8.6 MG TAB PO SCH ×2 (08:27→20:12)
--- NOTE | 2017-08-15 08:50 | HHI.HP ---
[facility] No Primary Care Physician Admission Diagnosis Right knee cellulitis/abscess; sepsis Diagnoses: (1) Abscess of right knee Chief Complaint: Right knee cellulitis Travel History International Travel<30 Days: No Contact w/Intl Traveler <30 Da: No Traveled to Known Affected Are: No Sepsis Criteria SIRS Criteria (2 or more): Temp > 100.9 or < 96.8, Heart rate over 90, WBC > 50069, < 4000 or > 10% bands Criteria Outcome: Meets SIRS criteria History of Present Illness This is a pleasant 57-year-old male patient with a known medical history of kidney cancer with left nephrectomy, hypertension, history of skin infections who presented to the ED with complaints of right knee cellulitis and pain. Patient states that for the past 5 days he has had subjective fever, chills and worsening headache and dizziness. He states that he has been unable to tolerate anything by mouth without nausea and vomiting. Patient states that he fell at home and hit his knee on the ground. Patient states that his right knee wound has worsened over the past 5 days with presence of serous fluid and worsening pain. Patient lives at home with his mom. It should be noted that patient does have a history of skin infections in the past that has required IV antibiotics. Per patient, he was hospitalized 2 months ago here, although there are no records of this said admission, for seizure and hitting his head. States he has chronic dizziness and headaches as well as imbalance problems. PT has been ordered for evaluation while here in the hospital. Denies hitting his head at home or any loss of consciousness or any recent seizures. Review of Systems Constitutional: COMPLAINS OF: Fever, Chills Eyes: DENIES: Blurred vision, Diplopia Respiratory: DENIES: Cough, Sputum production, Shortness of breath Cardiovascular: DENIES: Chest pain, Palpitations Gastrointestinal: COMPLAINS OF: Nausea, Vomiting, DENIES: Abdominal pain, Black stools, Bloody stools, Constipation, Diarrhea Musculoskeletal: COMPLAINS OF: Joint pain, Joint Swelling (Right knee) Psychiatric: COMPLAINS OF: Anxiety Except as stated in HPI: all other systems reviewed are Neg Past Family Social History Past Medical History Arthritis Anxiety and depression History of kidney cancer status post left nephrectomy GERD Hiatal hernia Past Surgical History Status post left nephrectomy Splenectomy Appendectomy Cholecystectomy Unspecified hand surgery Reported Medications Active Walker Rolling/GetGo (Device) 1 Mis Mis Ea .XX DIRECTED Losartan (Losartan Potassium) 25 Mg Tab 25 Mg PO DAILY Hydrocodone-Acetaminophen 10-325 mg Tab 1 Tab PO Q6H PRN Reported Xanax (Alprazolam) 0.25 Mg Tab Unknown Dose PO DIRECTED PRN Allergies: Coded Allergies: methylprednisolone (Unverified Adverse Reaction, Intermediate, Nausea, 08/14) Active Ordered Medications Current Medications Medications (Trade) Dose Ordered Sig/Elio Route Start Time Stop Time Status Last Admin Pharmacy Profile Note 0 ml @ 0 mls/hr UNSCH OTHER 08/15/17 00:30 Vancomycin HCl 1100 mg/Sodium Chloride 261 ml @ 250 mls/hr Q12H IV 08/15/17 12:00 08/15/17 11:44 Piperacillin Sod/ Tazobactam Sod 50 ml @ 100 mls/hr Q6H IV 08/15/17 00:30 08/15/17 12:40 (NS Flush) 2 ml UNSCH PRN IV FLUSH 08/15/17 00:30 (NS Flush) 2 ml BID IV FLUSH 08/15/17 09:00 (Tylenol) 650 mg Q4H PRN PO 08/15/17 00:30 (Zofran Inj) 4 mg Q6H PRN IVP 08/15/17 00:30 08/15/17 03:07 (Narcan Inj) 0.4 mg UNSCH PRN IV PUSH 08/15/17 00:30 (Susan-Colace) 1 tab BID PO 08/15/17 09:00 08/15/17 08:27 (Milk Of Magnesia Liq) 30 ml Q12H PRN PO 08/15/17 00:30 (Senokot) 17.2 mg Q12H PRN PO 08/15/17 00:30 (Dulcolax Supp) 10 mg DAILY PRN RECTAL 08/15/17 00:30 (Lactulose Liq) 30 ml DAILY PRN PO 08/15/17 00:30 (Cozaar) 25 mg DAILY PO 08/15/17 09:00 08/15/17 08:26 (Morphine Inj) 4 mg Q3H PRN IV PUSH 08/15/17 00:30 08/15/17 10:48 Miscellaneous Information SPECIFIC LAB TO BE [facility]... ONCE ONCE .XX 08/16/17 11:45 08/16/17 11:46 (Pneumovax-23 Inj) 25 mcg ONCE ONCE IM 08/16/17 09:00 08/16/17 09:01 ([place] 5-325 Mg) 1 tab Q4H PRN PO 08/15/17 09:00 ([place] 5-325 Mg) 2 tab Q4H PRN PO 08/15/17 09:00 08/15/17 09:47 Family History Family medical history significant for diabetes and unspecified cancer. Denies any cardiovascular disease. Social History Denies any current or previous tobacco use. Denies any alcohol use, states he quit 13 years ago. Admits to occasional marijuana use. Physical Exam Vital Signs Vital Signs Date Time Temp Pulse Resp B/P (MAP) Pulse Ox O2 Delivery O2 Flow Rate FiO2 08/15/17 07:01 65 08/15/17 04:08 20 08/15/17 02:00 69 08/15/17 01:50 100.7 72 20 153/95 (114) 99 08/15/17 01:11 75 18 162/95 (117) 100 08/15/17 00:30 72 20 169/104 (125) 100 Room Air 08/14/17 23:30 81 20 156/102 (120) 100 Room Air 08/14/17 23:00 77 18 171/95 (120) 100 Room Air 08/14/17 22:49 98 Room Air 08/14/17 22:48 98 Room Air 08/14/17 22:45 88 99 Room Air 08/14/17 22:39 99.2 109 18 181/109 (133) 98 Physical Exam GENERAL: Well-developed, well-nourished patient in [facility]. SKIN: Warm and dry. No rash. Right knee cellulitis, wound with serosanguineous purulent fluid, covered with Maxorb gauze. HEAD: Normocephalic. Atraumatic. EYES: Pupils equal and round. No scleral icterus. No injection or drainage. ENT: No nasal bleeding or discharge. Mucous membranes pink and moist. NECK: Supple. Trachea midline. CARDIOVASCULAR: Regular rate and rhythm. S1, S2 noted. No murmur appreciated. RESPIRATORY: No accessory muscle use. Clear to auscultation. Breath sounds equal bilaterally. GASTROINTESTINAL: Abdomen soft, non-tender, nondistended. Normoactive bowel sounds x4. MUSCULOSKELETAL: No obvious deformities. Extremities without clubbing, cyanosis , or edema. Right lower extremity with limited active range of motion. NEUROLOGICAL: Awake and alert. No obvious cranial nerve deficits. Motor grossly within normal limits. 5/5 muscle strength in bilateral upper and lower extremities. Normal speech. Laboratory Laboratory Tests Test 08/14/17 22:55 08/14/17 23:00 08/14/17 23:50 08/15/17 02:45 White Blood Count 14.3 Red Blood Count 4.15 Hemoglobin 12.7 Hematocrit 38.1 Mean Corpuscular Volume 91.8 Mean Corpuscular Hemoglobin 30.6 Mean Corpuscular Hemoglobin Concent 33.3 Red Cell Distribution Width 14.1 Platelet Count 327 Mean Platelet Volume 8.0 Neutrophils (%) (Auto) 49.8 Lymphocytes (%) (Auto) 40.9 Monocytes (%) (Auto) 7.3 Eosinophils (%) (Auto) 0.0 Basophils (%) (Auto) 2.0 Neutrophils # (Auto) 7.2 Lymphocytes # (Auto) 5.8 Monocytes # (Auto) 1.0 Eosinophils # (Auto) 0.0 Basophils # (Auto) 0.3 CBC Comment AUTO DIFF Differential Total Cells Counted 100 Neutrophils % (Manual) 33 Lymphocytes % 65 Monocytes % 2 Neutrophils # (Manual) 4.7 Differential Comment FINAL DIFF MANUAL Platelet Estimate NORMAL Platelet Morphology Comment CLUMPED Red Cell Morphology Comment NORMAL Blood Urea Nitrogen 16 Creatinine 1.20 Random Glucose 107 Total Protein 8.2 Albumin 3.9 Calcium Level 9.4 Alkaline Phosphatase 69 Aspartate Amino Transf (AST/SGOT) 21 Alanine Aminotransferase (ALT/SGPT) 26 Total Bilirubin 0.5 Sodium Level 138 Potassium Level 3.9 Chloride Level 102 Carbon Dioxide Level 27.6 Anion Gap 8 Estimat Glomerular Filtration Rate 63 Lactic Acid Level 2.1 1.6 Urine Collection Type CATH Urine Color MISTI Urine Turbidity CLEAR Urine pH 7.0 Urine Specific [place] 1.025 Urine Protein 100 Urine Glucose (UA) NEG Urine Ketones 15 Urine Occult Blood NEG Urine Nitrite NEG Urine Bilirubin NEG Urine Urobilinogen 1.0 Urine Leukocyte Esterase NEG Urine RBC 0-3 Urine WBC 0-2 Urine Squamous Epithelial Cells 0-5 Urine Hyaline Casts 3-5 Urine Mucus FEW Microscopic Urinalysis Comment CULT NOT INDICATED Urine Opiates Screen POS Urine Barbiturates Screen NEG Urine Amphetamines Screen NEG Urine Benzodiazepines Screen POS Urine Cocaine Screen NEG Urine Cannabinoids Screen POS Date/Time Source Procedure Growth Status 08/14/17 23:00 Blood Peripheral Aerobic Blood Culture Pending Received 08/14/17 23:00 Blood Peripheral Anaerobic Blood Culture Pending Received 08/14/17 23:00 Nasal Washing Influenza Types A,B Antigen (CAREY) - Final NEGATIVE FOR FLU A AND B ANTIGEN.... Complete 08/14/17 23:00 Wound Knee Gram Stain Pending Received 08/14/17 23:00 Wound Knee Wound Culture Pending Received Result Diagram: 08/14/175 08/14/17 2255 Imaging Last Impressions Chest X-Ray 08/14/172 Signed Impressions: Service Date/Time: Monday, August 14, 2017 22:45 - CONCLUSION: No acute disease. Nate Gomez MD Septic Shock Reassessment Septic shock perfusion: reassessment completed Caprini VTE Risk Assessment Caprini VTE Risk Assessment: No/Low Risk (score <= 1) Caprini Risk Assessment Model Point Value = 1 Point Value = 2 Point Value = 3 Point Value = 5 Age 41-60 Minor surgery BMI > 25 kg/m2 Swollen legs Varicose veins or History of unexplained or recurrent spontaneous Oral contraceptives or hormone replacement Sepsis (< 1 month) Serious lung disease, including pneumonia (< 1 month) Abnormal pulmonary function Acute myocardial infarction Congestive heart failure (< 1 month) History of inflammatory bowel disease Medical patient at bed rest Age 61-74 Arthroscopic surgery Major open surgery (> 45 min) Laparoscopic surgery (> 45 min) Malignancy Confined to bed (> 72 hours) Immobilizing plaster cast Central venous access Age >= 75 History of VTE Family history of VTE Factor V Leiden Prothrombin [id number] Lupus anticoagulant Anticardiolipin antibodies Elevated serum homocysteine Heparin-induced thrombocytopenia Other congenital or acquired thrombophilia Stroke (< 1 month) Elective arthroplasty Hip, pelvis, or leg fracture Acute spinal cord injury (< 1 month) Prophylaxis Regimen Total Risk Factor Score Risk Level Prophylaxis Regimen 0-1 Low Early ambulation 2 Moderate Order ONE of the following: *Sequential Compression Device (SCD) *Heparin 5000 units SQ BID 3-4 Higher Order ONE of the following medications: *Heparin 5000 units SQ TID *Enoxaparin/Lovenox 40 mg SQ daily (WT < 150 kg, CrCl > 30 mL/min) *Enoxaparin/Lovenox 30 mg SQ daily (WT < 150 kg, CrCl > 10-29 mL/min) *Enoxaparin/Lovenox 30 mg SQ BID (WT < 150 kg, CrCl > 30 mL/min) AND/OR *Sequential Compression Device (SCD) 5 or more Highest Order ONE of the following medications: *Heparin 5000 units SQ TID (Preferred with Epidurals) *Enoxaparin/Lovenox 40 mg SQ daily (WT < 150 kg, CrCl > 30 mL/min) *Enoxaparin/Lovenox 30 mg SQ daily (WT < 150 kg, CrCl > 10-29 mL/min) *Enoxaparin/Lovenox 30 mg SQ BID (WT < 150 kg, CrCl > 30 mL/min) AND *Sequential Compression Device (SCD) Assessment and Plan Problem List: (1) Abscess of right knee ICD Code: L02.415 - Cutaneous abscess of right lower limb Status: Acute Assessment and Plan This is a pleasant 57-year-old male patient with a known medical history of kidney cancer with left nephrectomy, hypertension, history of skin infections who presented to the ED with complaints of right knee wound and pain. Right knee abscess and cellulitis - Meet sepsis criteria with leukocytosis, tachycardia, elevated lactic acid and suspected source right knee wound/cellulitis. - Placed on vancomycin and Zosyn IV. Will continue. TMAX overnight 100.7. Blood cultures no growth 1 day. Continue to follow. Influenza negative. UA negative. Wound culture pending, follow. Leukocytosis, white blood cell 16.5 today. Monitor lactic acid 2.1 on presentation. Now 1.6. - Abscess was drained and unroofed. CT of the right knee obtained, reviewed showing induration involving the anterior medial aspect of the right knee. Extension down to the superior surface of the vastus medialis muscle. - Orthopedic consulted, appreciate input recommendations. - Chest x-ray also obtained and reviewed showing no acute disease. - Control pain, morphine IV available for breakthrough. [place] as needed for pain scale. - PT evaluation ordered, appreciate input recommendations. Patient with history of falls and chronic imbalance problems at home. Supportive care. Hypertension, chronic: Continue home medications. Monitor BP trend. DVT prophylaxis: SCDs. Physician Certification 2 Midnight Certification Type: Admission for Inpatient Services Order for Inpatient Services The services are ordered in accordance with Medicare regulations or non- Medicare payer requirements, as applicable. In the case of services not specified as inpatient-only, they are appropriately provided as inpatient services in accordance with the 2-midnight benchmark. Estimated LOS (days): 3 3 days is the estimated time the patient will need to remain in the hospital, assuming treatment plan goals are met and no additional complications. Post-Hospital Plan: Home Nelly Grossman Aug 15, 2017 08:50
[2017-08-15] MEDS ORDERED: ACETAMINOPHEN/HYDROcodone 325 MG/5 MG TAB PO PRN (09:00)
[2017-08-15] MEDS: ACETAMINOPHEN/HYDROcodone 325 MG/5 MG TAB PO PRN ×4 (09:47→22:30)
[2017-08-15] MEDS ORDERED: GETGO ROLLING W1 MI1 (10:14)
--- NOTE | 2017-08-15 10:14 | HHI.FF ---
Face to Face Verification Diagnosis: (1) Abscess of right knee Physical Therapy Order: Evaluate and Treat, Improve ambulation, Strength and gait training Home Health Nursing Order: Medical education Signs/symptoms of disease process Medication education-adverse effect Nursing assessment with vital signs I have seen patient Deon Mckeon on 08/15/17. My clinical findings support the need for the requested home health care services because: Deconditioned w/ increased weakness Limited ability to care for self I certify that my clinical findings support that this patient is homebound because: Unsteady gait/balance Nelly Grossman Aug 15, 2017 10:14
[2017-08-15 10:39] LABS: AUTOMATED NEUTROPHIL # 5.5 TH/MM3 (1.8-7.7); BASOPHIL # 0.1 TH/MM3 (0-0.2); BASOPHIL % 0.6 % (0.0-2.0); EOSINOPHIL # 0.1 TH/MM3 (0-0.4); EOSINOPHIL % 0.5 % (0.0-4.0); HEMATOCRIT 34.3 % (39.0-51.0); HEMOGLOBIN 11.4 GM/DL (13.0-17.0); LYMPHOCYTE # 9.3 TH/MM3 (1.0-4.8); MEAN CORPUSCULAR HEMOGLOBIN 30.5 PG (27.0-34.0); MEAN CORPUSCULAR HGB CONC 33.1 % (32.0-36.0); MEAN PLATELET VOLUME 7.4 FL (7.0-11.0); MONO % 8.8 % (0.0-8.0); MONOCYTE # 1.5 TH/MM3 (0-0.9); NEUT % 33.1 % (16.0-70.0); PLATELET COUNT 282 TH/MM3 (150-450); RED BLOOD COUNT 3.73 MIL/MM3 (4.50-5.90); WHITE BLOOD COUNT 16.5 TH/MM3 (4.0-11.0)
[2017-08-15 11:02] LABS: LYMPHOCYTES 59 % (9-44); MONOCYTES 9 % (0-8); NEUTROPHIL # MANUAL DIFF 5.3 TH/MM3 (1.8-7.7); POLYS (SEG NEUTROPHILS) 32 % (16-70)
[2017-08-15] MEDS: VANCOMYCIN INJ 1,100 MG in SODIUM CHLOR 0.9% 250 ML INJ 250 ML IV SCH ×2 (11:44→23:40)
[2017-08-15] MEDS ORDERED: IODIXANOL 320 MG/ML 10 ML VIAL (for Rad CT) IVCONTRAST ONE (12:17)
--- NOTE | 2017-08-15 12:55 | RADRPT ---
EXAM DATE/TIME: 08/15/2017 12:02 [facility] COMPARISON: CT BRAIN W/O CONTRAST, December 26, 2016, 4:06. INDICATIONS : Antereior knee pain and drainage, superior to patella. Evaluate for abscess. IV CONTRAST: 50 cc Visipaque (iodixanol) IV RADIATION DOSE: 9.41 CTDIvol (mGy) MEDICAL HISTORY : Renal cell carcinoma. Renal failure, chronic. Gastroesophageal reflux disease.Asthma. SURGICAL HISTORY : Nephrectomy, left. Splenectomy.Appendectomy.Cholecystectomy. ENCOUNTER: Initial ACUITY: 4 - 6 days PAIN SCALE: 10/10 LOCATION: Right knee TECHNIQUE: Volumetric scanning of the knee was performed. Using automated exposure control and adjustment of th e mA and/or kV according to patient size, radiation dose was kept as low as reasonably achievable to obtain optimal diagnostic quality images. DICOM format image data is available electronically for re view and comparison. FINDINGS: Problem specific findings: The examination demonstrates a large area of induration involving the prepatellar fat pad. This exten ds down into the deep subcutaneous tissues but does not appear to violate the joint itself. While I d o not see a definitive walled off fluid collection there is some low density fluid in the subcutaneou s tissues which appears to be a decompressing tract. The exam would suggest a probable abscess which is decompressed anteriorly. No retained foreign body is seen. The induration and inflammatory change appears to be confined to the soft tissues with extension down to the vastus medialis muscle. The xu nt itself appears intact. There is no joint effusion. The bony mineralization is within normal limits. No acute fracture is seen. The ACL and PCL appear in tact. The patellar and femoral tendons are intact. CONCLUSION: 1. Induration involving the anterior medial aspect of the right knee. There is extension down to the superior surface of the vastus medialis muscle. The joint itself does not appear to be involved. No r etained foreign bodies. Findings would suggest an abscess which is decompressed through the prepatell ar fat pad anteriorly. Sushant Tee MD on August 15, 2017 at 12:21 Board Certified Radiologist. This report was verified electronically.
[2017-08-15] MEDS ORDERED: KETOROLAC TROMETHAMINE 30 MG/ML (IVP) VIAL IV PUSH PRN (16:00)
--- NOTE | 2017-08-15 17:55 | RADRPT ---
EXAM DATE/TIME: 08/15/2017 17:23 [facility] COMPARISON: CT KNEE RIGHT W CONTRAST, August 15, 2017, 12:02. INDICATIONS : Dizziness. RADIATION DOSE: 60.12 CTDIvol (mGy) MEDICAL HISTORY : Hypertension. Carcinoma, not otherwise specified. SURGICAL HISTORY : None. ENCOUNTER: Initial ACUITY: 1 week PAIN SCALE: 0/10 LOCATION: cranial TECHNIQUE: Multiple contiguous axial images were obtained of the head. Using automated exposure control and adj ustment of the mA and/or kV according to patient size, radiation dose was kept as low as reasonably a chievable to obtain optimal diagnostic quality images. DICOM format image data is available electro nically for review and comparison. FINDINGS: CEREBRUM: The ventricles are normal for age. No evidence of midline shift, mass lesion, hemorrhage or acute in farction. No extra-axial fluid collections are seen. POSTERIOR FOSSA: The cerebellum and brainstem are intact. The 4th ventricle is midline. The cerebellopontine angle i s unremarkable. EXTRACRANIAL: The visualized portion of the orbits is intact. There is opacification of the maxillary sinuses bilat erally. SKULL: The calvaria is intact. No evidence of skull fracture. CONCLUSION: 1. No acute intracranial abnormality identified. 2. Possible maxillary sinusitis. Sushant Tee MD on August 15, 2017 at 17:52 Board Certified Radiologist. This report was verified electronically.
[2017-08-15] MEDS: MAGNESIUM HYDROXIDE SUSP 30 ML CUP PO PRN (18:40)
[2017-08-16] VITALS: BP 128/88; PULSE 57; RESP 20; TEMP 96.5; O2SAT 97
[2017-08-16] MEDS: PIPERACIL-TAZO 3.375 GM PREMIX 50 ML IV SCH ×5 (01:50→23:48)
[2017-08-16] MEDS: ACETAMINOPHEN/HYDROcodone 325 MG/5 MG TAB PO PRN ×6 (02:45→22:47)
[2017-08-16] MEDS: MORPHINE SULFATE 4 MG/ML INJ IV PUSH PRN ×7 (05:17→23:38)
[2017-08-16 06:53] LABS: AUTOMATED NEUTROPHIL # 1.7 TH/MM3 (1.8-7.7); BASOPHIL # 0.1 TH/MM3 (0-0.2); BASOPHIL % 1.3 % (0.0-2.0); EOSINOPHIL # 0.3 TH/MM3 (0-0.4); EOSINOPHIL % 3.4 % (0.0-4.0); HEMATOCRIT 36.9 % (39.0-51.0); HEMOGLOBIN 12.1 GM/DL (13.0-17.0); LYMPH % 71.1 % (9.0-44.0); MEAN CELL VOLUME 92.6 FL (80.0-100.0); MEAN CORPUSCULAR HEMOGLOBIN 30.4 PG (27.0-34.0); MEAN CORPUSCULAR HGB CONC 32.9 % (32.0-36.0); MEAN PLATELET VOLUME 8.3 FL (7.0-11.0); MONO % 7.1 % (0.0-8.0); MONOCYTE # 0.7 TH/MM3 (0-0.9); NEUT % 17.1 % (16.0-70.0); PLATELET COUNT 268 TH/MM3 (150-450); RED BLOOD COUNT 3.98 MIL/MM3 (4.50-5.90); RED CELL DISTRIBUTION WIDTH 13.6 % (11.6-17.2); WHITE BLOOD COUNT 9.8 TH/MM3 (4.0-11.0)
[2017-08-16 07:04] LABS: BICARBONATE 31.8 MEQ/L (21.0-32.0); CALCIUM 8.5 MG/DL (8.5-10.1); CREATININE 1.1 MG/DL (0.60-1.30)
[2017-08-16 07:33] LABS: BASOPHILS 1 % (0-2); LYMPHOCYTES 84 % (9-44); MONOCYTES 1 % (0-8); NEUTROPHIL # MANUAL DIFF 1.3 TH/MM3 (1.8-7.7); POLYS (SEG NEUTROPHILS) 13 % (16-70)
[2017-08-16 08:00] VITALS: BP 130/91; PULSE 54; RESP 16; O2SAT 98
[2017-08-16] MEDS: DOCUSATE SODIUM 50 MG/SENNA 8.6 MG TAB PO SCH ×2 (08:14→20:18)
[2017-08-16] MEDS: LOSARTAN 25 MG TAB PO SCH (08:14)
[2017-08-16] MEDS: SODIUM CHLORIDE 0.9% FLUSH 10 ML FLUSH IV FLUSH SCH ×2 (08:15→20:18)
[2017-08-16] MEDS: MAGNESIUM HYDROXIDE SUSP 30 ML CUP PO PRN (08:59)
[2017-08-16] MEDS ORDERED: PNEUMOCOCCAL POLYVALENT INJ 25 MCG/0.5 ML SYR IM ONE (09:00)
--- NOTE | 2017-08-16 09:47 | HHI.PR ---
Subjective Remarks Follow-up right knee cellulitis/abscess. Patient seen and examined, lying in bed with complaint of head and neck pain, states he has been suffering from this pain for many months since his injury. Pain medications continued. VSS. Afebrile. Right knee pain improving but still present. PT following. Objective Vitals Vital Signs Date Time Temp Pulse Resp B/P (MAP) Pulse Ox O2 Delivery O2 Flow Rate FiO2 08/16/17 08:00 54 16 130/91 (104) 98 08/16/17 00:00 96.5 57 20 128/88 (101) 97 08/15/17 20:00 96.3 59 20 103/68 (80) 96 08/15/17 16:00 98.0 65 18 124/76 (92) 95 08/15/17 12:00 98.0 72 18 118/80 (93) 95 I/O 08/15/17 08/15/17 08/15/17 08/16/17 08/16/17 08/16/17 07:00 15:00 23:00 07:00 15:00 23:00 Intake Total 626 ml 1165 ml 600 ml 590 ml Output Total 350 ml Balance 276 ml 1165 ml 600 ml 590 ml Intake Oral 520 ml 600 ml 240 ml IV Total 106 ml 1165 ml 350 ml Output Urine Total 350 ml # Voids 4 1 # Bowel Movements 0 Result Diagram: 08/16/17 0617 08/16/17 0617 Imaging Last Impressions Lower Extremity CT 08/15/17 0000 Signed Impressions: Service Date/Time: Tuesday, August 15, 2017 12:02 - CONCLUSION: 1. Induration involving the anterior medial aspect of the right knee. There is extension down to the superior surface of the vastus medialis muscle. The joint itself does not appear to be involved. No retained foreign bodies. Findings would suggest an abscess which is decompressed through the prepatellar fat pad anteriorly. Sushant Tee MD Head CT 08/15/17 0000 Signed Impressions: Service Date/Time: Tuesday, August 15, 2017 17:23 - CONCLUSION: 1. No acute intracranial abnormality identified. 2. Possible maxillary sinusitis. Sushant Tee MD Chest X-Ray 08/14/17 3352 Signed Impressions: Service Date/Time: [place], August 14, 2017 22:45 - CONCLUSION: No acute disease. Nate Gomez MD Objective Remarks GENERAL: Well-developed, well-nourished patient in [facility]. SKIN: Warm and dry. No rash. Right knee cellulitis, wound with serosanguineous purulent fluid, covered with Maxorb gauze. HEAD: Normocephalic. Atraumatic. EYES: Pupils equal and round. No scleral icterus. No injection or drainage. ENT: No nasal bleeding or discharge. Mucous membranes pink and moist. NECK: Supple. Trachea midline. CARDIOVASCULAR: Regular rate and rhythm. S1, S2 noted. No murmur appreciated. RESPIRATORY: No accessory muscle use. Clear to auscultation. Breath sounds equal bilaterally. GASTROINTESTINAL: Abdomen soft, non-tender, nondistended. Normoactive bowel sounds x4. MUSCULOSKELETAL: No obvious deformities. Extremities without clubbing, cyanosis , or edema. Right lower extremity with limited active range of motion. NEUROLOGICAL: Awake and alert. No obvious cranial nerve deficits. Motor grossly within normal limits. 5/5 muscle strength in bilateral upper and lower extremities. Normal speech. A/P Problem List: (1) Abscess of right knee ICD Code: L02.415 - Cutaneous abscess of right lower limb Status: Acute Assessment and Plan This is a pleasant 57-year-old male patient with a known medical history of kidney cancer with left nephrectomy, hypertension, history of skin infections who presented to the ED with complaints of right knee wound and pain. Right knee abscess and cellulitis - Meet sepsis criteria with leukocytosis, tachycardia, elevated lactic acid and suspected source right knee wound/cellulitis. - Placed on vancomycin and Zosyn IV. Will continue. Afebrile overnight. Blood cultures no growth 1 day. Continue to follow. Influenza negative. UA negative. Wound culture growing MRSA, follow sensitivity and CAREY. Leukocytosis , white blood cell 9.8 today. Monitor lactic acid 2.1 on presentation. Trending down. - Abscess was drained and unroofed. CT of the right knee obtained, reviewed showing induration involving the anterior medial aspect of the right knee. Extension down to the superior surface of the vastus medialis muscle. - Orthopedic consulted, appreciate input recommendations. Spoke to Dr. Thomas who does not believe this warrants an orthopedic intervention. Spoke to general surgery how was updated about patient and will follow clinically, no surgery at this time. Right knee area with improving erythema, no induration, minimal serous drainage. Recommendations to continue antibiotics and supportive care. - Chest x-ray also obtained and reviewed showing no acute disease. - Control pain, morphine IV available for breakthrough. [place] as needed for pain scale. Added Toradol. - Patient complaints of headache, CT head performed showing no acute disease. Possible maxillary sinusitis. - PT evaluation ordered, appreciate input recommendations. Patient with history of falls and chronic imbalance problems at home. Supportive care. Hypertension, chronic: Continue home medications. Monitor BP trend. DVT prophylaxis: SCDs. Nelly Grossman Aug 16, 2017 09:47
[2017-08-16] MEDS ORDERED: PHARMACY ORDERED LAB ONE (11:45)
[2017-08-16] MEDS: VANCOMYCIN INJ 1,100 MG in SODIUM CHLOR 0.9% 250 ML INJ 250 ML IV SCH ×2 (12:28→23:48)
[2017-08-16 16:00] VITALS: BP 148/90; PULSE 62; RESP 16; TEMP 96.9; O2SAT 98
[2017-08-16 20:00] VITALS: BP 151/96; PULSE 63; RESP 20; TEMP 97.3; O2SAT 100
[2017-08-17] VITALS: BP 137/90; PULSE 57; RESP 20; TEMP 97.4; O2SAT 98
[2017-08-17] MEDS: PIPERACIL-TAZO 3.375 GM PREMIX 50 ML IV SCH (06:53)
[2017-08-17] MEDS: MORPHINE SULFATE 4 MG/ML INJ IV PUSH PRN ×2 (06:59→11:15)
--- NOTE | 2017-08-17 08:20 | HHI.PR ---
Subjective Remarks Follow-up right knee cellulitis/abscess. Patient seen and examined, lying in bed comfortably. Patient does state he had a good night. Slept well. Spoke to general surgery who will manage medically, no surgical intervention at this time. Actually okay to discharge per surgery standpoint, to follow-up in office upon discharge. Vital signs are stable at this time. Afebrile. Awaiting wound culture sensitivity and CAREY for appropriate antibiotic choice, then will discharge home. Objective Vitals Vital Signs Date Time Temp Pulse Resp B/P (MAP) Pulse Ox O2 Delivery O2 Flow Rate FiO2 08/17/17 00:00 97.4 57 20 137/90 (106) 98 08/16/17 20:00 97.3 63 20 151/96 (114) 100 08/16/17 16:00 96.9 62 16 148/90 (109) 98 I/O 08/16/17 08/16/17 08/16/17 08/17/17 08/17/17 08/17/17 07:00 15:00 23:00 07:00 15:00 23:00 Intake Total 590 ml 615 ml 300 ml 50 ml Output Total 300 ml Balance 590 ml 615 ml 0 ml 50 ml Intake Oral 240 ml IV Total 350 ml 615 ml 300 ml 50 ml Output Urine Total 300 ml # Voids 1 1 1 # Bowel Movements 1 Result Diagram: 08/16/17 0617 08/16/17 0617 Imaging Last Impressions Lower Extremity CT 08/15/17 0000 Signed Impressions: Service Date/Time: Tuesday, August 15, 2017 12:02 - CONCLUSION: 1. Induration involving the anterior medial aspect of the right knee. There is extension down to the superior surface of the vastus medialis muscle. The joint itself does not appear to be involved. No retained foreign bodies. Findings would suggest an abscess which is decompressed through the prepatellar fat pad anteriorly. Sushant Tee MD Head CT 08/15/17 0000 Signed Impressions: Service Date/Time: Tuesday, August 15, 2017 17:23 - CONCLUSION: 1. No acute intracranial abnormality identified. 2. Possible maxillary sinusitis. Sushant Tee MD Chest X-Ray 08/14/17 6908 Signed Impressions: Service Date/Time: Monday, August 14, 2017 22:45 - CONCLUSION: No acute disease. Nate Gomez MD Objective Remarks GENERAL: Well-developed, well-nourished patient in NAD. SKIN: Warm and dry. No rash. Right knee cellulitis, wound with serosanguineous purulent fluid, covered with Maxorb gauze. HEAD: Normocephalic. Atraumatic. EYES: Pupils equal and round. No scleral icterus. No injection or drainage. ENT: No nasal bleeding or discharge. Mucous membranes pink and moist. NECK: Supple. Trachea midline. CARDIOVASCULAR: Regular rate and rhythm. S1, S2 noted. No murmur appreciated. RESPIRATORY: No accessory muscle use. Clear to auscultation. Breath sounds equal bilaterally. GASTROINTESTINAL: Abdomen soft, non-tender, nondistended. Normoactive bowel sounds x4. MUSCULOSKELETAL: No obvious deformities. Extremities without clubbing, cyanosis , or edema. Right lower extremity with limited active range of motion. NEUROLOGICAL: Awake and alert. No obvious cranial nerve deficits. Motor grossly within normal limits. 5/5 muscle strength in bilateral upper and lower extremities. Normal speech. A/P Problem List: (1) Abscess of right knee ICD Code: L02.415 - Cutaneous abscess of right lower limb Status: Acute Assessment and Plan This is a pleasant 57-year-old male patient with a known medical history of kidney cancer with left nephrectomy, hypertension, history of skin infections who presented to the ED with complaints of right knee wound and pain. Right knee abscess and cellulitis - Meet sepsis criteria with leukocytosis, tachycardia, elevated lactic acid and suspected source right knee wound/cellulitis. - Placed on vancomycin and Zosyn IV. Will continue. Afebrile overnight. Blood cultures no growth to date. Influenza negative. UA negative. Wound culture growing MRSA, follow sensitivity and CAREY. Leukocytosis, white blood cell 9.8 today. Monitor lactic acid 2.1 on presentation. Trending down. - Abscess was drained and unroofed. CT of the right knee obtained, reviewed showing induration involving the anterior medial aspect of the right knee. Extension down to the superior surface of the vastus medialis muscle. - Orthopedic consulted, appreciate input recommendations. Spoke to Dr. Thomas who does not believe this warrants an orthopedic intervention. Spoke to general surgery how was updated about patient and will follow clinically, no surgery at this time, okay to discharge and follow-up in office. Right knee area with improving erythema, no induration, minimal serous drainage. Recommendations to continue antibiotics and supportive care. - Chest x-ray also obtained and reviewed showing no acute disease. - Control pain, morphine IV available for breakthrough. Barlow as needed for pain scale. Added Toradol. - Patient complaints of headache, CT head performed showing no acute disease. Possible maxillary sinusitis. - PT evaluation ordered, appreciate input recommendations. Patient with history of falls and chronic imbalance problems at home. Supportive care. Hypertension, chronic: Continue home medications. Monitor BP trend. DVT prophylaxis: SCDs. Discharge Planning Awaiting CAREY and sensitivity for wound culture, then will DC home today with [facility]. Nelly Grossman Aug 17, 2017 08:20
[2017-08-17] MEDS ORDERED: KETO10 PO (08:28)
--- NOTE | 2017-08-17 08:29 | HHI.DS ---
Discharge Summary Admission Date Aug 15, 2017 at 00:13 Discharge Date: Aug 17, 2017 Admitting Diagnosis Right knee cellulitis/abscess; sepsis (1) Abscess of right knee ICD Code: L02.415 - Cutaneous abscess of right lower limb Status: Acute Procedures See below. Brief History - From Admission This is a pleasant 57-year-old male patient with a known medical history of kidney cancer with left nephrectomy, hypertension, history of skin infections who presented to the ED with complaints of right knee cellulitis and pain. Patient states that for the past 5 days he has had subjective fever, chills and worsening headache and dizziness. He states that he has been unable to tolerate anything by mouth without nausea and vomiting. Patient states that he fell at home and hit his knee on the ground. Patient states that his right knee wound has worsened over the past 5 days with presence of serous fluid and worsening pain. Patient lives at home with his mom. It should be noted that patient does have a history of skin infections in the past that has required IV antibiotics. Per patient, he was hospitalized 2 months ago here, although there are no records of this said admission, for seizure and hitting his head. States he has chronic dizziness and headaches as well as imbalance problems. PT has been ordered for evaluation while here in the hospital. Denies hitting his head at home or any loss of consciousness or any recent seizures. CBC/BMP: 08/16/17 0617 08/16/17 0617 Significant Findings Laboratory Tests Test 08/14/17 22:55 08/14/17 23:00 08/14/17 23:50 08/15/17 02:45 White Blood Count 14.3 TH/MM3 (4.0-11.0) Red Blood Count 4.15 MIL/MM3 (4.50-5.90) Hemoglobin 12.7 GM/DL (13.0-17.0) Hematocrit 38.1 % (39.0-51.0) Lymphocytes # (Auto) 5.8 TH/MM3 (1.0-4.8) Monocytes # (Auto) 1.0 TH/MM3 (0-0.9) Basophils # (Auto) 0.3 TH/MM3 (0-0.2) Lymphocytes % 65 % (9-44) Platelet Morphology Comment CLUMPED (NORMAL) Random Glucose 107 MG/DL (74-106) Estimat Glomerular Filtration Rate 63 ML/MIN (>89) Lactic Acid Level 2.1 mmol/L (0.4-2.0) Urine Color MISTI (YELLW/STRAW) Urine Protein 100 mg/dL (NEG-TRACE) Urine Ketones 15 mg/dL (NEG) Urine Hyaline Casts 3-5 /lpf (RARE) Urine Mucus FEW /lpf (OCC) Urine Opiates Screen POS (NEG) Urine Benzodiazepines Screen POS (NEG) Urine Cannabinoids Screen POS (NEG) Test 08/15/17 10:30 08/16/17 06:17 08/16/17 11:10 White Blood Count 16.5 TH/MM3 (4.0-11.0) Red Blood Count 3.73 MIL/MM3 (4.50-5.90) 3.98 MIL/MM3 (4.50-5.90) Hemoglobin 11.4 GM/DL (13.0-17.0) 12.1 GM/DL (13.0-17.0) Hematocrit 34.3 % (39.0-51.0) 36.9 % (39.0-51.0) Lymphocytes (%) (Auto) 57.0 % (9.0-44.0) 71.1 % (9.0-44.0) Monocytes (%) (Auto) 8.8 % (0.0-8.0) Lymphocytes # (Auto) 9.3 TH/MM3 (1.0-4.8) 7.0 TH/MM3 (1.0-4.8) Monocytes # (Auto) 1.5 TH/MM3 (0-0.9) Lymphocytes % 59 % (9-44) 84 % (9-44) Monocytes % 9 % (0-8) Neutrophils # (Auto) 1.7 TH/MM3 (1.8-7.7) Neutrophils % (Manual) 13 % (16-70) Neutrophils # (Manual) 1.3 TH/MM3 (1.8-7.7) Anion Gap 4 MEQ/L (5-15) Estimat Glomerular Filtration Rate 69 ML/MIN (>89) Vancomycin Level Trough 14.4 MCG/ML (5.0-10.0) Imaging Last Impressions Lower Extremity CT 08/15/17 0000 Signed Impressions: Service Date/Time: Tuesday, August 15, 2017 12:02 - CONCLUSION: 1. Induration involving the anterior medial aspect of the right knee. There is extension down to the superior surface of the vastus medialis muscle. The joint itself does not appear to be involved. No retained foreign bodies. Findings would suggest an abscess which is decompressed through the prepatellar fat pad anteriorly. Sushant Tee MD Head CT 08/15/17 0000 Signed Impressions: Service Date/Time: Tuesday, August 15, 2017 17:23 - CONCLUSION: 1. No acute intracranial abnormality identified. 2. Possible maxillary sinusitis. Sushant Tee MD Chest X-Ray 08/14/172241 Signed Impressions: Service Date/Time: Monday, August 14, 2017 22:45 - CONCLUSION: No acute disease. Nate Gomez MD PE at Discharge GENERAL: Well-developed, well-nourished patient in NAD. SKIN: Warm and dry. No rash. Right knee cellulitis, wound with serosanguineous purulent fluid, covered with Maxorb gauze. HEAD: Normocephalic. Atraumatic. EYES: Pupils equal and round. No scleral icterus. No injection or drainage. ENT: No nasal bleeding or discharge. Mucous membranes pink and moist. NECK: Supple. Trachea midline. CARDIOVASCULAR: Regular rate and rhythm. S1, S2 noted. No murmur appreciated. RESPIRATORY: No accessory muscle use. Clear to auscultation. Breath sounds equal bilaterally. GASTROINTESTINAL: Abdomen soft, non-tender, nondistended. Normoactive bowel sounds x4. MUSCULOSKELETAL: No obvious deformities. Extremities without clubbing, cyanosis , or edema. Right lower extremity with limited active range of motion. NEUROLOGICAL: Awake and alert. No obvious cranial nerve deficits. Motor grossly within normal limits. 5/5 muscle strength in bilateral upper and lower extremities. Normal speech. Pt update on day of discharge Follow-up right knee cellulitis/abscess. Patient seen and examined, lying in bed comfortably. Patient does state he had a good night. Slept well. Spoke to general surgery who will manage medically, no surgical intervention at this time. Actually okay to discharge per surgery standpoint, to follow-up in office upon discharge. Vital signs are stable at this time. Afebrile. Awaiting wound culture sensitivity and CAREY for appropriate antibiotic choice, then will discharge home. Hospital Course This is a pleasant 57-year-old male patient with a known medical history of kidney cancer with left nephrectomy, hypertension, history of skin infections who presented to the ED with complaints of right knee wound and pain. It was found that patient had right knee abscess and cellulitis. Met sepsis criteria with leukocytosis, tachycardia, elevated lactic acid and suspected source right knee wound/cellulitis. Placed on vancomycin and Zosyn IV. Blood cultures negative. Influenza negative. UA negative. Wound culture growing MRSA. Leukocytosis, white blood cell 9.8. Lactic acid 2.2 on presentation. Abscess was drained and unroofed in ED. CT of the right knee obtained, reviewed showing induration involving the anterior medial aspect of the right knee. Extension down to the superior surface of the vastus medialis muscle. Orthopedic consulted, spoke to Dr. Thomas who does not believe this warrants an orthopedic intervention. Spoke to general surgery, no surgery indicated, okay to discharge and follow-up in office. Right knee area with improving erythema, no induration, minimal serous drainage. Recommendations to continue antibiotics and supportive care. Chest x-ray also obtained showing no acute disease. Morphine IV was available for breakthrough pain during hospitalization, as well as [place] and Toradol. Patient complaints of headache during hospitalization, CT head performed showing no acute disease. Possible maxillary sinusitis. PT evaluation ordered, patient with history of falls and chronic imbalance problems at home. [facility] ordered for discharge. Pt Condition on Discharge: Stable Discharge Disposition: Disch w/ Home Health Serv Discharge Time: > 30 minutes Discharge Instructions DIET: Follow Instructions for: Heart Healthy Diet Activities you can perform: Regular-No Restrictions Follow up Referrals: PCP Follow-up - 1 Week Surgical - 1 Week New Medications: Clindamycin (Clindamycin) 300 Mg Cap 300 MG PO Q6H for Infection for 7 Days, #28 CAP 0 Refills Ketorolac (Ketorolac) 10 Mg Tab 10 MG PO Q6HR PRN for PAIN for 5 Days, #20 TAB 0 Refills Walker Rolling/GetGo (Walker Rolling/GetGo) 1 Mis Mis EA .XX DIRECTED, #1 Continued Medications: Alprazolam (Xanax) 0.25 Mg Tab Unknown Dose PO DIRECTED PRN for ANXIETY, TAB 0 Refills Hydrocodone-Acetaminophen (Hydrocodone-Acetaminophen) 10-325 mg Tab 1 TAB PO Q6H PRN for PAIN, #60 TAB 0 Refills Losartan (Losartan) 25 Mg Tab 25 MG PO DAILY for Blood Pressure Management, #30 TAB 5 Refills Nelly Grossman Aug 17, 2017 08:29
--- NOTE | 2017-08-17 08:29 | HHI.DCPOC ---
Discharge Care Plan Diagnosis: (1) Abscess of right knee Goals to Promote Your Health * To prevent worsening of your condition and complications * To maintain your health at the optimal level Directions to Meet Your Goals Take your medications as prescribed Follow your dietary instruction Follow activity as directed Keep your appointments as scheduled Take your immunizations and boosters as scheduled If your symptoms worsen call your PCP, if no PCP go to Urgent Care Center or Emergency Room Smoking is Dangerous to Your Health. Avoid second hand smoke Call the 24-hour hour crisis hotline for domestic abuse at Nelly Grossman Aug 17, 2017 08:29
[2017-08-17] MEDS: LOSARTAN 25 MG TAB PO SCH (09:07)
[2017-08-17] MEDS: DOCUSATE SODIUM 50 MG/SENNA 8.6 MG TAB PO SCH (09:07)
[2017-08-17] MEDS: SODIUM CHLORIDE 0.9% FLUSH 10 ML FLUSH IV FLUSH SCH (09:07)
[2017-08-17] MEDS: ACETAMINOPHEN/HYDROcodone 325 MG/5 MG TAB PO PRN (09:08)
--- NOTE | 2017-08-17 10:31 | MB ---
cc: Socrates Russo MD DATE: 08/17/2017 REASON FOR CONSULTATION: Cellulitis, abscess to the right mid-thigh from a fall. HISTORY OF PRESENT ILLNESS: This is a pleasant 57-year-old gentleman who apparently has been falling on and off for the last few weeks. He has been in and out of the hospital. He fell at home and skinned and bruised just above the kneecap on the right side. It then got swollen and then more tender. He has had problems with MRSA infections in the past and then this became more tender and swollen, but he was more concerned with his repeated falling events that he has had that is apparently being worked up by the medical team. They asked me to evaluate the patient because of the cellulitic response on the imaging studies showing a swelling over the site of cellulitis. PAST MEDICAL HISTORY: He has had problems with MRSA in the past. Apparently, he just got on disability because of his dizziness and frequent falls. He has numerous medical problems including history of kidney cancer, reflux, hematuria, shoulder pain, seizure disorder, chronic hepatitis C, hypertension. OUTPATIENT MEDICATIONS: 1. Xanax. 2. Hydrocodone. 3. Losartan. ALLERGIES: HE IS ALLERGIC TO METHYLPREDNISOLONE. PHYSICAL EXAMINATION: GENERAL: He is sitting in the bed. VITAL SIGNS: Fairly normal with a blood pressure of 137/90. Temperature: He is afebrile. NECK: Supple. CHEST: Clear. HEART: Regular rate. EXTREMITIES: On his right lower extremity, he has a 3-4 cm indurated area with 2 small openings with clear drainage. From photo documentation from yesterday, this wound looks much better, less erythematous and less tender. According to the patient, he has been cleaning it since being in the hospital. He has been getting IV antibiotics. IMAGING STUDIES: I reviewed the imaging studies. ASSESSMENT: Subcutaneous hematoma secondarily slightly infected, responding to antibiotic therapy. He has 2 openings in the area that I think are draining this adequately. He does not require any more surgical debridement. PLAN: I would just switch him over to p.o. antibiotics when sensitivities return and I will see him in the office in a week or two. I left a card on the chart to give to the patient. Case reviewed with Ms. Nelly Grossman, involved with his care. MD WENDY Estrada/CARLOS , 10:12 AM , 10:30 AM
[2017-08-17] MEDS ORDERED: CLIN300C5 PO (10:33)
[2017-08-17 10:35] VITALS: BP 158/89; PULSE 67; RESP 18; TEMP 98.9; O2SAT 96
[2017-08-17 11:20] VITALS: RESP 18
[2017-08-17] MEDS: VANCOMYCIN INJ 1,100 MG in SODIUM CHLOR 0.9% 250 ML INJ 250 ML IV SCH (11:48)
--- NOTE | 2017-08-17 11:51 | HHI.FF ---
Face to Face Verification Diagnosis: (1) Abscess of right knee Home Health Nursing Order: Signs/symptoms of disease process Medication education-adverse effect Wound care and dressing changes Nursing assessment with vital signs I have seen patient Deon Mckeon on 08/17/17. My clinical findings support the need for the requested home health care services because: Deconditioned w/ increased weakness I certify that my clinical findings support that this patient is homebound because: Unsteady gait/balance Nelly Grossman Aug 17, 2017 11:51
== END 2017-08-17 12:18 | disposition home health service (06) | DRG 872 ==
LOC: PHED 22:32 → PHEDA 08-15 00:13 → PH3A 08-15 01:39
PROVIDERS: ADMIT Hospitalist; ATTEND Hospitalist
PROC: 0H9KXZX Drainage of Right Lower Leg Skin, External Approach, Diagnostic (ICD-10-PCS; principal; 2017-08-14)
DX: A41.9 Sepsis, unspecified organism (principal); L02.415 Cutaneous abscess of right lower limb; I10 Essential (primary) hypertension; L03.115 Cellulitis of right lower limb; F12.90 Cannabis use, unspecified, uncomplicated; G47.30 Sleep apnea, unspecified; Z23 Encounter for immunization; G43.909 Migraine, unspecified, not intractable, without status migrainosus; K44.9 Diaphragmatic hernia without obstruction or gangrene; K21.9 Gastro-esophageal reflux disease without esophagitis; F41.9 Anxiety disorder, unspecified; F32.9 Major depressive disorder, single episode, unspecified; M19.90 Unspecified osteoarthritis, unspecified site; J45.909 Unspecified asthma, uncomplicated; Z90.81 Acquired absence of spleen; Z85.528 Personal history of other malignant neoplasm of kidney; Z90.5 Acquired absence of kidney; Z87.442 Personal history of urinary calculi; B18.2 Chronic viral hepatitis C; G40.909 Epilepsy, unspecified, not intractable, without status epilepticus; Z83.3 Family history of diabetes mellitus; W19.XXXA Unspecified fall, initial encounter; Y92.009 Unspecified place in unspecified non-institutional (private) residence as the place of occurrence of the external cause; Z86.14 Personal history of Methicillin resistant Staphylococcus aureus infection; Z91.81 History of falling
CPT/HCPCS: 10060; 70450; 71045; 73701; 80048; 80053; 80202; 80307; 81001; 83605; 85007; 85027; 86403; 87040; 87070; 87186; 87205; 87804; 90732; 96365; 96375; J1885; J2270; J2405; J2543; J3370; J7030; J7050; Q9967

== ENCOUNTER 2017-08-28 22:41 | Observation (INO) | payer MEDICAID, OTHER ==
[~2017-08-28] VITALS: Ht 182.9 cm; Wt 73.9 kg
[~2017-08-28 22:41] MED LIST changes: +ALPR.25 PO; +CLIN300C5 PO; +GETGO ROLLING W1 MI1; +KETO10 PO
[2017-08-28 22:45] VITALS: BP 158/90; PULSE 75; RESP 18; TEMP 97.9
[2017-08-29 00:05] LABS: AUTOMATED NEUTROPHIL # 1.4 TH/MM3 (1.8-7.7); BASOPHIL % 0.3 % (0.0-2.0); EOSINOPHIL # 0.1 TH/MM3 (0-0.4); EOSINOPHIL % 1.1 % (0.0-4.0); HEMATOCRIT 35.7 % (39.0-51.0); LYMPH % 75.6 % (9.0-44.0); LYMPHOCYTE # 7.5 TH/MM3 (1.0-4.8); MEAN CELL VOLUME 91.1 FL (80.0-100.0); MEAN CORPUSCULAR HEMOGLOBIN 30.7 PG (27.0-34.0); MEAN CORPUSCULAR HGB CONC 33.7 % (32.0-36.0); MEAN PLATELET VOLUME 7.4 FL (7.0-11.0); MONO % 8.9 % (0.0-8.0); MONOCYTE # 0.9 TH/MM3 (0-0.9); NEUT % 14.1 % (16.0-70.0); PLATELET COUNT 323 TH/MM3 (150-450); RED BLOOD COUNT 3.92 MIL/MM3 (4.50-5.90); RED CELL DISTRIBUTION WIDTH 13.4 % (11.6-17.2); WHITE BLOOD COUNT 9.9 TH/MM3 (4.0-11.0)
[2017-08-29 00:12] LABS: CHLORIDE 102 MEQ/L (98-107); SODIUM (NA) 138 MEQ/L (136-145)
[2017-08-29 00:15] LABS: CALCIUM 8.9 MG/DL (8.5-10.1)
[2017-08-29 00:16] LABS: ALBUMIN 3.6 GM/DL (3.4-5.0); BICARBONATE 32.7 MEQ/L (21.0-32.0); BLOOD UREA NITROGEN 16 MG/DL (7-18); GLUCOSE,RANDOM 133 MG/DL (74-106)
[2017-08-29 00:17] LABS: INTERNATIONAL NORMALIZED RATIO 1.2 RATIO; PROTHROMBIN TIME - PATIENT 12.2 SEC (9.8-11.6)
[2017-08-29 00:19] LABS: ALT (GPT) 16 U/L (12-78); AST (GOT) 23 U/L (15-37); GLOMERULAR FILTRATION RATE 57 ML/MIN (>89)
[2017-08-29 00:20] LABS: TOTAL BILIRUBIN ADULT 0.1 MG/DL (0.2-1.0); TOTAL PROTEIN 8.2 GM/DL (6.4-8.2)
[2017-08-29 00:22] LABS: ALKALINE PHOSPHATASE 76 U/L (45-117)
[2017-08-29 00:24] LABS: TROPONIN I LESS THAN 0.02 NG/ML (0.02-0.05)
[2017-08-29 00:28] LABS: BILIRUBIN, URINE NEG (NEG); BLOOD, URINE NEG (NEG); GLUCOSE,URINE NEG (NEG); KETONE, URINE NEG (NEG); NITRITE,URINE NEG (NEG); URINE COLOR YELLOW (YELLW/STRAW); URINE LEUKOCYTE ESTERASE NEG (NEG)
--- NOTE | 2017-08-29 00:28 | RADRPT ---
EXAM DATE/TIME: 08/28/2017 23:58 [facility] COMPARISON: CT ABDOMEN & PELVIS W CONTRAST, December 25, 2016, 22:30. CT ABDOMEN & PELVIS W/O CONTRAST, August 11, 2016, 11:51. INDICATIONS : Weakness. Dizziness. Generalized pain. ORAL CONTRAST: No oral contrast ingested. RADIATION DOSE: 7.64 CTDIvol (mGy) MEDICAL HISTORY : Hernia, hiatal. Cardiovascular disease Chronic obstructive pulmonary disease.Renal cell carcinoma. SURGICAL HISTORY : Nephrectomy, left. Splenectomy.Appendectomy.Cholecystectomy. ENCOUNTER: Initial ACUITY: 1 month PAIN SCALE: 0/10 LOCATION: body TECHNIQUE: Volumetric scanning of the abdomen and pelvis was performed. Using automated exposure control and ad justment of the mA and/or kV according to patient size, radiation dose was kept as low as reasonably achievable to obtain optimal diagnostic quality images. DICOM format image data is available electro nically for review and comparison. FINDINGS: Patient has had cholecystectomy since the prior CT. No fluid collection or other associated complicat ion. More remote splenectomy and left nephrectomy changes are again seen. Spleen is partially regener ated. Liver, pancreas, adrenal glands and right kidney are within normal limits. Moderate stool in the colon, mostly right-sided. No obstruction or inflammatory changes. There is no free fluid. No free air. Visualized lung bases are clear. No acute bony abnormality demonstrated. Lumbar spine degenerative ch anges are again noted. L5 is partially sacralized on the right. CONCLUSION: 1. No obstruction or acute inflammatory changes. 2. Moderate stool in the colon. 3. Interim cholecystectomy. 4. Remote splenectomy and left nephroureterectomy. Nate Herring MD on August 29, 2017 at 0:22 Board Certified Radiologist. This report was verified electronically.
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
--- NOTE | 2017-08-29 00:30 | RADRPT ---
EXAM DATE/TIME: 08/29/2017 00:06 [facility] COMPARISON: CT ABDOMEN & PELVIS W/O CONTRAST, August 28, 2017, 23:58. CHEST SINGLE AP, August 14, 2017, 22:45. INDICATIONS : Short of breath. MEDICAL HISTORY : Hiatal hernia. Hypertension Gastroesophageal reflux disease. Renal Carcinoma. SURGICAL HISTORY : Splenectomy. Appendectomy. Left nephrectomy. ENCOUNTER: Initial ACUITY: 1 day PAIN SCORE: 0/10 LOCATION: Bilateral chest FINDINGS: A single view of the chest demonstrates the lungs to be symmetrically aerated without evidence of mas s, infiltrate or effusion. The cardiomediastinal contours are unremarkable. Osseous structures are intact. CONCLUSION: No acute cardiopulmonary disease demonstrated. Nate Herring MD on August 29, 2017 at 0:28 Board Certified Radiologist. This report was verified electronically.
[2017-08-29 00:32] LABS: LYMPHOCYTES 87 % (9-44); MONOCYTES 4 % (0-8); NEUTROPHIL # MANUAL DIFF 0.9 TH/MM3 (1.8-7.7); POLYS (SEG NEUTROPHILS) 9 % (16-70)
[2017-08-29 00:37] LABS: MUCUS URINE FEW /lpf (OCC)
[2017-08-29 00:38] LABS: SQUAMOUS EPITHELIAL CELL URINE 0-5 /hpf (0-5); WHITE BLOOD CELL CLUMPS OCC
[2017-08-29 00:43] VITALS: BP 145/80; PULSE 70; RESP 16; TEMP 98.7; O2SAT 97
[2017-08-29] MEDS ORDERED: NALOXONE HCL 0.4 MG/ML AMP IV PUSH PRN (00:45)
[2017-08-29] MEDS ORDERED: SODIUM CHLORIDE 0.9% FLUSH 10 ML FLUSH IV FLUSH PRN (00:45)
[2017-08-29] MEDS ORDERED: ONDANSETRON HCL 4 MG/2 ML VIAL IVP PRN (00:45)
[2017-08-29] MEDS ORDERED: MAGNESIUM HYDROXIDE SUSP 30 ML CUP PO PRN (00:45)
[2017-08-29] MEDS ORDERED: LACTULOSE SYRUP 20 GM/30 ML CUP PO PRN (00:45)
[2017-08-29] MEDS ORDERED: SODIUM CHLOR 0.9% 1000 ML INJ 1,000 ML IV ONE (00:45)
[2017-08-29] MEDS ORDERED: BISACODYL 10 MG SUPP RECTAL PRN (00:45)
[2017-08-29] MEDS ORDERED: ACETAMINOPHEN 325 MG TAB PO PRN (00:45)
[2017-08-29] MEDS ORDERED: SENNOSIDES 8.6 MG TAB PO PRN (00:45)
[2017-08-29 02:02] VITALS: BP 154/84; TEMP 97.8
[2017-08-29] MEDS ORDERED: HYDR-3366 PO ×2 (02:02→10:40)
[2017-08-29] MEDS ORDERED: XANA1TAB2 PO (02:02)
[2017-08-29 02:07] VITALS: BP 157/90; PULSE 67; RESP 20; TEMP 96.8; O2SAT 100
[2017-08-29 02:30] VITALS: BP 157/90; PULSE 67; RESP 20; TEMP 96.8; O2SAT 100
[2017-08-29 07:53] VITALS: BP 122/78; PULSE 62; RESP 19; TEMP 97.1; O2SAT 97
[2017-08-29] MEDS ORDERED: DOCUSATE SODIUM 50 MG/SENNA 8.6 MG TAB PO SCH (09:00)
[2017-08-29] MEDS ORDERED: SODIUM CHLORIDE 0.9% FLUSH 10 ML FLUSH IV FLUSH SCH (09:00)
--- NOTE | 2017-08-29 10:40 | HHI.DCPOC ---
Discharge Care Plan Diagnosis: (1) Neck muscle strain (2) Back pain Goals to Promote Your Health * To prevent worsening of your condition and complications * To maintain your health at the optimal level Directions to Meet Your Goals Take your medications as prescribed Follow your dietary instruction Follow activity as directed Keep your appointments as scheduled Take your immunizations and boosters as scheduled If your symptoms worsen call your PCP, if no PCP go to Urgent Care Center or Emergency Room Smoking is Dangerous to Your Health. Avoid second hand smoke Call the 24-hour hour crisis hotline for domestic abuse at Ce Arias MD Aug 29, 2017 10:40
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
[2017-08-29] MEDS ORDERED: BISACODYL EC 5 MG TABEC PO ONE (10:45)
[2017-08-29 11:39] VITALS: BP 135/82; PULSE 73; RESP 19; TEMP 97.6; O2SAT 96
--- NOTE | 2017-08-29 22:25 | EKG ---
Date Performed: 08/29/2017 Time Performed: 00:23:06 PTAGE: 57 years EKG: Sinus rhythm NORMAL ECG PREVIOUS TRACING : 12/25/2016 21.17 Since the previous tracing, no significant change noted DOCTOR: Colt Bridges Interpretating Date/Time 08/29/2017 22:25:19
== END 2017-08-29 13:08 | disposition home or self-care (01) ==
LOC: PHED 22:41 → PHEDA 08-29 00:46 → PH3B 08-29 02:07
PROVIDERS: ADMIT Hospitalist; ATTEND Hospitalist
DX: M54.9 Dorsalgia, unspecified (principal); S16.1XXA Strain of muscle, fascia and tendon at neck level, initial encounter; E86.0 Dehydration; R62.7 Adult failure to thrive; K59.00 Constipation, unspecified; R63.3 Feeding difficulties; G89.29 Other chronic pain; I10 Essential (primary) hypertension; J44.9 Chronic obstructive pulmonary disease, unspecified; R42 Dizziness and giddiness; R51 Headache; R06.02 Shortness of breath; R11.2 Nausea with vomiting, unspecified; R10.9 Unspecified abdominal pain; K21.9 Gastro-esophageal reflux disease without esophagitis; G47.30 Sleep apnea, unspecified; F41.9 Anxiety disorder, unspecified; F32.9 Major depressive disorder, single episode, unspecified; M19.90 Unspecified osteoarthritis, unspecified site; Z85.528 Personal history of other malignant neoplasm of kidney; Z90.5 Acquired absence of kidney; X58.XXXA Exposure to other specified factors, initial encounter
CPT/HCPCS: 71045; 74176; 80053; 81001; 83690; 84484; 85007; 85027; 85610; 85730; 87086; 93005; 96360; 97162; 99285; G0378; G8987; G8988; J7030

== ENCOUNTER 2017-10-02 23:29 | Emergency (ER) | payer OTHER, MEDICAID ==
[~2017-10-02] VITALS: Ht 208.3 cm; Wt 77.7 kg
[~2017-10-02 23:29] MED LIST changes: -ALPR.25 PO; -CLIN300C5 PO; +HYDR-3366 PO; -HYDR-3583 PO; -KETO10 PO; +XANA1TAB2 PO
[2017-10-02 23:34] VITALS: BP 203/103; PULSE 91; RESP 16; TEMP 98.2; O2SAT 97
[2017-10-03] MEDS ORDERED: cloNIDine HCL 0.2 MG TAB PO ONE
[2017-10-03] MEDS ORDERED: ACETAMINOPHEN/HYDROcodone 325 MG/5 MG TAB PO ONE
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
[2017-10-03 00:49] VITALS: BP 136/92; PULSE 85; RESP 16; TEMP 97.3; O2SAT 100
[2017-10-03] MEDS ORDERED: NAPR500T2 PO (01:08)
[2017-10-03] MEDS ORDERED: CYCL10TA PO (01:08)
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
[2017-10-03 01:44] VITALS: BP 142/85; TEMP 97.6
== END 2017-10-03 01:48 | disposition home or self-care (01) ==
LOC: PHED 23:29
DX: R51 Headache (principal); M54.2 Cervicalgia; I10 Essential (primary) hypertension; K21.9 Gastro-esophageal reflux disease without esophagitis
CPT/HCPCS: 70450; 72125; 99283

== ENCOUNTER 2017-10-10 08:44 | Inpatient (IN) | payer MEDICAID ==
[2017-10-10] VITALS (8 sets, daily range): BP systolic 165–198; BP diastolic 99–113; PULSE 73–85; RESP 16–20; TEMP 96.9–98.8; O2SAT 95–99
[~2017-10-10] VITALS: Ht 185.4 cm; Wt 71.7 kg
[~2017-10-10 08:44] MED LIST changes: +CYCL10TA PO; +NAPR500T2 PO
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
[2017-10-10] MEDS ORDERED: SODIUM CHLOR 0.9% 1000 ML INJ 1,000 ML IV SCH (09:25)
[2017-10-10] MEDS ORDERED: ONDANSETRON HCL 4 MG/2 ML VIAL IVP ONE (09:30)
[2017-10-10] MEDS ORDERED: MORPHINE SULFATE 4 MG/ML INJ IV PUSH ONE (09:30)
[2017-10-10 09:58] LABS: AUTOMATED NEUTROPHIL # 2.8 TH/MM3 (1.8-7.7); BASOPHIL # 0.1 TH/MM3 (0-0.2); BASOPHIL % 1.7 % (0.0-2.0); EOSINOPHIL # 0.1 TH/MM3 (0-0.4); EOSINOPHIL % 1.4 % (0.0-4.0); HEMATOCRIT 39.3 % (39.0-51.0); HEMOGLOBIN 13.4 GM/DL (13.0-17.0); LYMPH % 41.9 % (9.0-44.0); LYMPHOCYTE # 2.6 TH/MM3 (1.0-4.8); MEAN CELL VOLUME 91.4 FL (80.0-100.0); MEAN PLATELET VOLUME 8.7 FL (7.0-11.0); MONO % 9.2 % (0.0-8.0); MONOCYTE # 0.6 TH/MM3 (0-0.9); NEUT % 45.8 % (16.0-70.0); PLATELET COUNT 338 TH/MM3 (150-450); RED CELL DISTRIBUTION WIDTH 14.2 % (11.6-17.2); WHITE BLOOD COUNT 6.2 TH/MM3 (4.0-11.0)
[2017-10-10] MEDS: SODIUM CHLORIDE 0.9% FLUSH 10 ML FLUSH IV FLUSH PRN ×2 (10:01→11:13)
[2017-10-10 10:05] LABS: CHLORIDE 102 MEQ/L (98-107); SODIUM (NA) 141 MEQ/L (136-145)
[2017-10-10 10:09] LABS: ALBUMIN 3.7 GM/DL (3.4-5.0); BLOOD UREA NITROGEN 13 MG/DL (7-18); CALCIUM 10.1 MG/DL (8.5-10.1); GLUCOSE,RANDOM 115 MG/DL (74-106)
[2017-10-10 10:12] LABS: ALT (GPT) 21 U/L (12-78); AST (GOT) 24 U/L (15-37); CREATININE 0.91 MG/DL (0.60-1.30); GLOMERULAR FILTRATION RATE 86 ML/MIN (>89)
[2017-10-10 10:14] LABS: TOTAL BILIRUBIN ADULT 0.3 MG/DL (0.2-1.0)
[2017-10-10 10:15] LABS: ALKALINE PHOSPHATASE 90 U/L (45-117)
[2017-10-10 10:17] LABS: TOTAL PROTEIN 7.4 GM/DL (6.4-8.2)
[2017-10-10 10:31] LABS: BILIRUBIN, URINE NEG (NEG); BLOOD, URINE NEG (NEG); GLUCOSE,URINE NEG (NEG); KETONE, URINE NEG (NEG); NITRITE,URINE NEG (NEG); PH, URINE GREATER/EQUAL 9.0 (5.0-8.5); URINE COLOR YELLOW (YELLW/STRAW); URINE LEUKOCYTE ESTERASE NEG (NEG)
[2017-10-10] MEDS ORDERED: IODIXANOL 320 MG/ML 10 ML VIAL (for Rad CT) IVCONTRAST ONE (10:48)
[2017-10-10 10:50] LABS: AMORPHOUS SEDIMENT, URINE MOD; RBC, URINE 0-3 /hpf (0-3); SQUAMOUS EPITHELIAL CELL URINE 0-5 /hpf (0-5)
--- NOTE | 2017-10-10 10:54 | RADRPT ---
EXAM DATE: 10/10/2017 10:47 AM EDT AGE/SEX: 57 years / Male INDICATIONS: Diffuse abdominal pain. CLINICAL DATA: This is the patient's initial encounter. Patient reports that signs and symptoms have been present for 1 day and indicates a pain score of 10/10. MEDICAL/SURGICAL HISTORY: Chronic obstructive pulmonary disease. Renal cell carcinoma. Gastro esophageal reflux disease. Hypertension. Asthma. Hiatal hernia. Renal calculi. Nephrectomy, left. Appendectomy. Cholecystectomy. Splenectomy. ORAL CONTRAST: No oral contrast ingested. RADIATION DOSE: 8.72 CTDI (mGy) COMPARISON: [facility], CT ABDOMEN & PELVIS W CONTRAST, 12/25/2016. . TECHNIQUE: Multiple contiguous axial images were obtained through the abdomen and pelvis following b olus infusion of 50 ml Visipaque 320 (iodixanol) nonionic water-soluble contrast as a single exam d ose. No oral contrast ingested. Using automated exposure control and adjustment of the mA and/or kV according to patient size, the radiation dose was kept as low as reasonably achievable to obtain opti mal diagnostic quality images. FINDINGS: The lower lungs are clear. Trace ascites is evident. Liver is free of focal defects. Surgical clips gallbladder fossa Spleen is not visualized. Surgical clips in the splenic fossa. Status post left nephrectomy The right kidney is unremarkable There is no ascites or adenopathy The bowel gas pattern is unremarkable with dilated small bowel proximally when compared to distal sma ll bowel. The point of transition appears to be in the left lower quadrant. The proximal small bowel is dilated to 4 cm is. Distal small bowel measures 1.2 cm. There are no inflammatory changes evident. In the pelvis moderate stool is seen in the descending and transverse colon. Trace fluid is present in the pelvis. No other significant abnormality is noted in the pelvis. CONCLUSION: 1. Abnormal proximal small bowel look compared to distal suspicious for a small bowel obstruction. T ransition is somewhere in the left lower quadrant 2. Status post left nephrectomy 3. Status post splenectomy 4. Trace ascites without free air. Electronically signed by: Colten Tee MD 10/10/2017 10:53 AM EDT
[2017-10-10] MEDS ORDERED: MORPHINE SULFATE 8 MG/ML INJ IV PUSH ONE (11:00)
[2017-10-10] MEDS ORDERED: NALOXONE HCL 0.4 MG/ML AMP IV PUSH PRN (11:15)
[2017-10-10] MEDS ORDERED: ACETAMINOPHEN 325 MG TAB PO PRN (11:15)
[2017-10-10] MEDS ORDERED: TEMAZEPAM 15 MG CAP PO PRN (11:15)
[2017-10-10] MEDS ORDERED: METOCLOPRAMIDE HCL 10 MG/2 ML VIAL IV PUSH PRN (11:15)
[2017-10-10] MEDS ORDERED: SODIUM CHLORIDE 0.9% FLUSH 10 ML FLUSH IV FLUSH PRN (11:15)
[2017-10-10] MEDS ORDERED: MAGNESIUM HYDROXIDE SUSP 30 ML CUP PO PRN (12:00)
--- NOTE | 2017-10-10 12:02 | HHI.HP ---
[facility] Non-Staff Admission Diagnosis Abdominal pain, small bowel obstruction Diagnoses: (1) Small intestine obstruction (2) Abdominal pain Chief Complaint: Abdominal pain Travel History International Travel<30 Days: No Contact w/Intl Traveler <30 Da: No Traveled to Known Affected Are: No History of Present Illness 57-year-old male for significant history of abdominal surgeries presented to the ED for evaluation of acute and worsening intractable abdominal pain rated 10 out of 10 in intensity associated with multiple episode of emesis and nausea. Patient denies any GI bleed, reports of shortness of breath. CT abdomen and the ED revealed small bowel obstruction, an NG tube was placed with significant output recorded. Review of Systems Except as stated in HPI: all other systems reviewed are Neg Past Family Social History Past Medical History Arthritis Anxiety and depression History of kidney cancer status post left nephrectomy GERD Hiatal hernia Past Surgical History Status post left nephrectomy Splenectomy Appendectomy Cholecystectomy Unspecified hand surgery Reported Medications Flexeril (Cyclobenzaprine HCl) 10 Mg Tab 10 Mg PO TID 10 Days [place] (Hydrocodone-Acetaminophen) 10-325 Mg Tab 1 Tab PO Q4H PRN Losartan (Losartan Potassium) 25 Mg Tab 25 Mg PO DAILY Reported Xanax (Alprazolam) 1 Mg Tab 1 Mg PO Q6H PRN Allergies: Coded Allergies: methylprednisolone (Unverified Adverse Reaction, Intermediate, Nausea, ) Family History Family medical history significant for diabetes and unspecified cancer. Denies any cardiovascular disease. Social History Denies any current or previous tobacco use. Denies any alcohol use, states he quit 13 years ago. Admits to occasional marijuana use. Physical Exam Vital Signs Vital Signs Date Time Temp Pulse Resp B/P (MAP) Pulse Ox O2 Delivery O2 Flow Rate FiO2 10/10/17 11:41 73 16 171/99 (123) 98 Room Air 10/10/17 10:54 16 10/10/17 10:06 16 99 Room Air 10/10/17 10:05 75 16 165/108 (127) 99 Room Air 10/10/17 09:03 16 10/10/17 08:53 98.8 73 16 179/106 (555) 96 Physical Exam GENERAL: This is a well-nourished, well-developed patient, in mild apparent distress.NGT in place SKIN: No rashes, ecchymoses or lesions. Cool and dry. HEAD: Atraumatic. Normocephalic. No temporal or scalp tenderness. EYES: Pupils equal round and reactive. Extraocular motions intact. No scleral icterus. No injection or drainage. ENT: Nose without bleeding, purulent drainage or septal hematoma. Throat without erythema, tonsillar hypertrophy or exudate. Uvula midline. Airway patent. NECK: Trachea midline. No JVD or lymphadenopathy. Supple, nontender, no meningeal signs. CARDIOVASCULAR: Regular rate and rhythm without murmurs, gallops, or rubs. RESPIRATORY: Clear to auscultation. Breath sounds equal bilaterally. No wheezes , rales, or rhonchi. GASTROINTESTINAL: Abdomen soft, +tender, nondistended. No hepato-splenomegaly, or palpable masses. No guarding. MUSCULOSKELETAL: Extremities without clubbing, cyanosis, or edema. No joint tenderness, effusion, or edema noted. No calf tenderness. Negative Homans sign bilaterally. NEUROLOGICAL: Awake and alert. Cranial nerves II through XII intact. Motor and sensory grossly within normal limits. Five out of 5 muscle strength in all muscle groups. Normal speech. Laboratory Laboratory Tests Test 10/10/17 09:40 10/10/17 10:25 White Blood Count 6.2 Red Blood Count 4.30 Hemoglobin 13.4 Hematocrit 39.3 Mean Corpuscular Volume 91.4 Mean Corpuscular Hemoglobin 31.0 Mean Corpuscular Hemoglobin Concent 34.0 Red Cell Distribution Width 14.2 Platelet Count 338 Mean Platelet Volume 8.7 Neutrophils (%) (Auto) 45.8 Lymphocytes (%) (Auto) 41.9 Monocytes (%) (Auto) 9.2 Eosinophils (%) (Auto) 1.4 Basophils (%) (Auto) 1.7 Neutrophils # (Auto) 2.8 Lymphocytes # (Auto) 2.6 Monocytes # (Auto) 0.6 Eosinophils # (Auto) 0.1 Basophils # (Auto) 0.1 CBC Comment DIFF FINAL Differential Comment Blood Urea Nitrogen 13 Creatinine 0.91 Random Glucose 115 Total Protein 7.4 Albumin 3.7 Calcium Level 10.1 Alkaline Phosphatase 90 Aspartate Amino Transf (AST/SGOT) 24 Alanine Aminotransferase (ALT/SGPT) 21 Total Bilirubin 0.3 Sodium Level 141 Potassium Level 4.2 Chloride Level 102 Carbon Dioxide Level 36.0 Anion Gap 3 Estimat Glomerular Filtration Rate 86 Lipase 59 Urine Collection Type CLEAN CATCH Urine Color YELLOW Urine Turbidity SL CLOUDY Urine pH GREATER/EQUAL 9.0 Urine Specific [place] 1.015 Urine Protein 30 Urine Glucose (UA) NEG Urine Ketones NEG Urine Occult Blood NEG Urine Nitrite NEG Urine Bilirubin NEG Urine Urobilinogen 0.2 Urine Leukocyte Esterase NEG Urine RBC 0-3 Urine Squamous Epithelial Cells 0-5 Urine Amorphous Sediment MOD Microscopic Urinalysis Comment CULT NOT INDICATED Result Diagram: 10/10/1793910/10/17939 Imaging Last Impressions Abdomen/Pelvis CT 10/10/17924 Signed Impressions: CONCLUSION: 1. Abnormal proximal small bowel look compared to distal suspicious for a smal l bowel obstruction. Transition is somewhere in the left lower quadrant 2. Status post left nephrectomy 3. Status post splenectomy 4. Trace ascites without free air. Septic Shock Reassessment Septic shock perfusion: reassessment completed Caprini VTE Risk Assessment Caprini VTE Risk Assessment: No/Low Risk (score <= 1) Caprini Risk Assessment Model Point Value = 1 Point Value = 2 Point Value = 3 Point Value = 5 Age 41-60 Minor surgery BMI > 25 kg/m2 Swollen legs Varicose veins or History of unexplained or recurrent spontaneous Oral contraceptives or hormone replacement Sepsis (< 1 month) Serious lung disease, including pneumonia (< 1 month) Abnormal pulmonary function Acute myocardial infarction Congestive heart failure (< 1 month) History of inflammatory bowel disease Medical patient at bed rest Age 61-74 Arthroscopic surgery Major open surgery (> 45 min) Laparoscopic surgery (> 45 min) Malignancy Confined to bed (> 72 hours) Immobilizing plaster cast Central venous access Age >= 75 History of VTE Family history of VTE Factor V Leiden Prothrombin [id number] Lupus anticoagulant Anticardiolipin antibodies Elevated serum homocysteine Heparin-induced thrombocytopenia Other congenital or acquired thrombophilia Stroke (< 1 month) Elective arthroplasty Hip, pelvis, or leg fracture Acute spinal cord injury (< 1 month) Prophylaxis Regimen Total Risk Factor Score Risk Level Prophylaxis Regimen 0-1 Low Early ambulation 2 Moderate Order ONE of the following: *Sequential Compression Device (SCD) *Heparin 5000 units SQ BID 3-4 Higher Order ONE of the following medications: *Heparin 5000 units SQ TID *Enoxaparin/Lovenox 40 mg SQ daily (WT < 150 kg, CrCl > 30 mL/min) *Enoxaparin/Lovenox 30 mg SQ daily (WT < 150 kg, CrCl > 10-29 mL/min) *Enoxaparin/Lovenox 30 mg SQ BID (WT < 150 kg, CrCl > 30 mL/min) AND/OR *Sequential Compression Device (SCD) 5 or more Highest Order ONE of the following medications: *Heparin 5000 units SQ TID (Preferred with Epidurals) *Enoxaparin/Lovenox 40 mg SQ daily (WT < 150 kg, CrCl > 30 mL/min) *Enoxaparin/Lovenox 30 mg SQ daily (WT < 150 kg, CrCl > 10-29 mL/min) *Enoxaparin/Lovenox 30 mg SQ BID (WT < 150 kg, CrCl > 30 mL/min) AND *Sequential Compression Device (SCD) Assessment and Plan Problem List: (1) Small bowel obstruction ICD Code: K56.609 - Unspecified intestinal obstruction, unspecified as to partial versus complete obstruction Status: Acute (2) Abdominal pain ICD Code: R10.9 - Unspecified abdominal pain Status: Acute Assessment and Plan 57-year-old man Small bowel obstruction CT abdomen/pelvis noted and reviewed by me with finding of small bowel obstruction NG tube in place, keep n.p.o. and continue IV fluid hydration Continue with conservative treatment 72 hours, however if no improvement consult general surgery Pain management accordingly Repeat flat and upright in a.m. October 11, 2017 Hypertension Currently BP labile secondary to poorly controlled pain Resume outpatient medication, and start Vasotec as needed Chronic pain syndrome Treat with morphine as needed DVT prophylaxis: Bilateral SCDs GI prophylaxis: PPI Code Status Full code Discussed Condition With Patient, ED physician Physician Certification 2 Midnight Certification Type: Admission for Inpatient Services Order for Inpatient Services The services are ordered in accordance with Medicare regulations or non- Medicare payer requirements, as applicable. In the case of services not specified as inpatient-only, they are appropriately provided as inpatient services in accordance with the 2-midnight benchmark. Estimated LOS (days): 2 days is the estimated time the patient will need to remain in the hospital, assuming treatment plan goals are met and no additional complications. Post-Hospital Plan: Not yet determined Problem Qualifiers (1) Abdominal pain: Qualified Codes: R10.84 - Generalized abdominal pain Marcos Hernandez MD October 10, 2017 12:02
[2017-10-10] MEDS: D5-1/2 NS + KCL 20 MEQ INJ 1,000 ML IV SCH ×2 (13:02→21:32)
[2017-10-10] MEDS: MORPHINE SULFATE 4 MG/ML INJ IV PUSH PRN ×3 (13:16→21:31)
[2017-10-10] MEDS ORDERED: MORPHINE SULFATE 2 MG/ML SYRINGE IV PUSH PRN (15:00)
[2017-10-10] MEDS: ENALAPRILAT 2.5 MG/2 ML VIAL IV PUSH PRN (17:30)
[2017-10-10] MEDS ORDERED: LORazepam 2 MG/ML VIAL IV PUSH ONE (21:15)
[2017-10-10] MEDS: SODIUM CHLORIDE 0.9% FLUSH 10 ML FLUSH IV FLUSH SCH (21:32)
[2017-10-11] VITALS (7 sets, daily range): BP systolic 151–174; BP diastolic 98–111; PULSE 74–94; RESP 18–20; TEMP 96.8–99.1; O2SAT 97–99
[2017-10-11] MEDS: MORPHINE SULFATE 4 MG/ML INJ IV PUSH PRN ×5 (01:42→20:15)
[2017-10-11] MEDS: ENALAPRILAT 2.5 MG/2 ML VIAL IV PUSH PRN (04:51)
--- NOTE | 2017-10-11 05:46 | RADRPT ---
EXAM DATE: 10/11/2017 5:37 AM EDT AGE/SEX: 57 years / Male INDICATIONS: Abdominal pain, distension CLINICAL DATA: This is the patient's subsequent encounter. Patient reports that signs and symptoms h ave been present for 2 days and indicates a pain score of 10/10. MEDICAL/SURGICAL HISTORY: . Chronic obstructive pulmonary disease. Renal cell carcinoma. Genie roesophageal reflux disease. Hypertension. Asthma. Hiatal hernia. Renal calculi. . Nephrectomy, lef t. Appendectomy. Cholecystectomy. Splenectomy. COMPARISON: [facility], CT ABDOMEN & PELVIS W CONTRAST, 10/10/2017. . FINDINGS: There are dilatation of loops of small bowel with extensive stool throughout the colon. The maximum d iameter of loop of small bowel measures 4.2 cm. There is no free intraperitoneal air. CONCLUSION: Extensive stool throughout the colon particularly the ascending colon with dilatation of loops of sma ll bowel. The patient's prior CT examination demonstrated small bowel obstruction. Electronically signed by: Maxim Flores MD 10/11/2017 5:45 AM EDT
[2017-10-11 05:55] LABS: AUTOMATED NEUTROPHIL # 4.9 TH/MM3 (1.8-7.7); BASOPHIL # 0.1 TH/MM3 (0-0.2); BASOPHIL % 0.7 % (0.0-2.0); EOSINOPHIL % 0.3 % (0.0-4.0); HEMATOCRIT 39.2 % (39.0-51.0); HEMOGLOBIN 12.9 GM/DL (13.0-17.0); LYMPH % 41.6 % (9.0-44.0); LYMPHOCYTE # 4.2 TH/MM3 (1.0-4.8); MEAN CELL VOLUME 92.7 FL (80.0-100.0); MEAN CORPUSCULAR HEMOGLOBIN 30.6 PG (27.0-34.0); MEAN PLATELET VOLUME 8.6 FL (7.0-11.0); MONO % 8.6 % (0.0-8.0); MONOCYTE # 0.9 TH/MM3 (0-0.9); NEUT % 48.8 % (16.0-70.0); PLATELET COUNT 340 TH/MM3 (150-450); RED BLOOD COUNT 4.22 MIL/MM3 (4.50-5.90); RED CELL DISTRIBUTION WIDTH 13.9 % (11.6-17.2); WHITE BLOOD COUNT 10.1 TH/MM3 (4.0-11.0)
[2017-10-11 06:02] LABS: CHLORIDE 103 MEQ/L (98-107); SODIUM (NA) 141 MEQ/L (136-145)
[2017-10-11] MEDS: D5-1/2 NS + KCL 20 MEQ INJ 1,000 ML IV SCH ×2 (06:18→17:17)
[2017-10-11 06:30] LABS: ALBUMIN 3.2 GM/DL (3.4-5.0); ALKALINE PHOSPHATASE 79 U/L (45-117); ALT (GPT) 18 U/L (12-78); AST (GOT) 16 U/L (15-37); BICARBONATE 32.5 MEQ/L (21.0-32.0); BLOOD UREA NITROGEN 12 MG/DL (7-18); CALCIUM 8.9 MG/DL (8.5-10.1); CREATININE 0.84 MG/DL (0.60-1.30); GLOMERULAR FILTRATION RATE 95 ML/MIN (>89); GLUCOSE,RANDOM 119 MG/DL (74-106); TOTAL BILIRUBIN ADULT 0.3 MG/DL (0.2-1.0); TOTAL PROTEIN 6.7 GM/DL (6.4-8.2)
[2017-10-11] MEDS: LOSARTAN 25 MG TAB PO SCH (08:03)
[2017-10-11] MEDS: PANTOPRAZOLE SODIUM 40 MG VIAL IV PUSH SCH (08:06)
[2017-10-11] MEDS: SODIUM CHLORIDE 0.9% FLUSH 10 ML FLUSH IV FLUSH SCH ×2 (08:07→19:38)
--- NOTE | 2017-10-11 10:05 | HHI.PR ---
Subjective Remarks Follow-up small bowel obstruction October 11, 2017-patient seen and examined, with increase NG tube output and patient reported episode of emesis overnight. Patient complains of significant abdominal tenderness. flat and upright revealed mostly stool throughout Objective Vitals Vital Signs Date Time Temp Pulse Resp B/P (MAP) Pulse Ox O2 Delivery O2 Flow Rate FiO2 10/11/17 07:50 96.8 83 20 155/98 (117) 97 10/11/17 04:54 99.1 77 18 167/111 (129) 99 10/11/17 04:00 98.7 78 20 157/104 (121) 97 10/11/17 00:00 97.3 74 20 169/108 (128) 99 10/10/17 19:49 98.1 81 18 173/113 (133) 95 10/10/17 17:00 96.9 74 20 198/112 (140) 99 10/10/17 13:00 96.9 85 20 173/107 (129) 98 10/10/17 12:32 90 16 165/103 (123) 97 10/10/17 11:41 73 16 171/99 (123) 98 Room Air 10/10/17 11:00 16 10/10/17 10:54 16 10/10/17 10:06 16 99 Room Air 10/10/17 10:05 75 16 165/108 (127) 99 Room Air I/O 10/10/17 10/10/17 10/10/17 10/11/17 10/11/17 10/11/17 07:00 15:00 23:00 07:00 15:00 23:00 Intake Total 1000 ml 1500 ml Output Total 300 ml 200 ml 800 ml Balance 700 ml -200 ml 700 ml Intake IV Total 1000 ml 1500 ml Output Urine Total 550 ml Gastric Drainage Total 200 ml 250 ml Emesis 300 ml # Voids 1 # Bowel Movements 0 Result Diagram: 10/11/17 0426 10/11/17 0426 Imaging Last Impressions Abdomen X-Ray 10/11/17 06 Signed Impressions: CONCLUSION: Extensive stool throughout the colon particularly the ascending colon with dila tation of loops of small bowel. The patient's prior CT examination demonstrated small bowel obstruction. Abdomen/Pelvis CT 10/10/17 0925 Signed Impressions: CONCLUSION: 1. Abnormal proximal small bowel look compared to distal suspicious for a smal l bowel obstruction. Transition is somewhere in the left lower quadrant 2. Status post left nephrectomy 3. Status post splenectomy 4. Trace ascites without free air. Objective Remarks GENERAL: NAD SKIN: Warm and dry. HEAD: Normocephalic. EYES: No scleral icterus. No injection or drainage. NECK: Supple, trachea midline. No JVD or lymphadenopathy. CARDIOVASCULAR: Regular rate and rhythm without murmurs, gallops, or rubs. RESPIRATORY: Breath sounds equal bilaterally. No accessory muscle use. GASTROINTESTINAL: Abdomen soft, +tender, +distended. MUSCULOSKELETAL: No cyanosis, or edema. BACK: Nontender without obvious deformity. No CVA tenderness. A/P Problem List: (1) Small bowel obstruction ICD Code: K56.609 - Unspecified intestinal obstruction, unspecified as to partial versus complete obstruction Status: Acute (2) Abdominal pain ICD Code: R10.9 - Unspecified abdominal pain Status: Acute Assessment and Plan 57-year-old man Small bowel obstruction CT abdomen/pelvis noted and reviewed by me with finding of small bowel obstruction NG tube in place, keep n.p.o. and continue IV fluid hydration Continue with conservative treatment, however if no improvement consult general surgery Pain management accordingly Repeat flat and upright this a.m. October 11, 2017 with evidence of extensive dilatation with stool throughout the colon with no evidence of obstruction, therefore will start Sod enema 1 Hypertension Continue outpatient medication, and hydralazine /Vasotec as needed Chronic pain syndrome Treat with morphine as needed DVT prophylaxis: Bilateral SCDs GI prophylaxis: PPI Problem Qualifiers (1) Abdominal pain: Qualified Codes: R10.84 - Generalized abdominal pain Marcos Hernandez MD October 11, 2017 10:05
[2017-10-11] MEDS ORDERED: SODIUM POLYSTYRENE SULFONATE 30 GM/120 ML ENEMA RECTAL ONE (11:00)
[2017-10-11] MEDS ORDERED: SOD PHOSPHATE/SOD BIPHOSPHATE (ADULT) ENEMA 133ML RECTAL ONE (14:45)
[2017-10-11] MEDS: ALPRAZolam 1 MG TAB PO PRN (17:30)
[2017-10-11] MEDS ORDERED: HYDROmorphone HCL PF 2 MG/ML VIAL IV PUSH ONE (22:00)
[2017-10-12] VITALS: BP 160/103; PULSE 93; RESP 20; TEMP 97.8; O2SAT 97
[2017-10-12] MEDS: MORPHINE SULFATE 4 MG/ML INJ IV PUSH PRN (00:08)
[2017-10-12] MEDS ORDERED: HYDROmorphone HCL PF 0.5 MG/0.5 ML SYRINGE IV PUSH ONE (02:45)
[2017-10-12] MEDS: D5-1/2 NS + KCL 20 MEQ INJ 1,000 ML IV SCH ×3 (02:53→21:40)
[2017-10-12] MEDS: ALPRAZolam 1 MG TAB PO PRN ×4 (03:02→21:39)
[2017-10-12 04:00] VITALS: BP 118/70
--- NOTE | 2017-10-12 05:54 | RADRPT ---
EXAM DATE: 10/12/2017 5:42 AM EDT AGE/SEX: 57 years / Male INDICATIONS: Abdominal pain, distension for 3 days CLINICAL DATA: This is the patient's subsequent encounter. Patient reports that signs and symptoms h ave been present for 3 days and indicates a pain score of 10/10. MEDICAL/SURGICAL HISTORY: . Chronic obstructive pulmonary disease. Renal cell carcinoma. Gastro esophageal reflux disease. Hypertension. Asthma. Hiatal hernia. Renal calculi. . Nephrectomy, left. Appendectomy. Cholecystectomy. Splenectomy. COMPARISON: No prior exams available for comparison. FINDINGS: There is a mild ileus. Numerous surgical clips in the abdomen. No definite obstruction or free air. N o acute bony abnormalities. CONCLUSION: Mild ileus. Electronically signed by: Socrates Bernard MD 10/12/2017 5:53 AM EDT
[2017-10-12] MEDS: HYDROmorphone HCL PF 0.5 MG/0.5 ML SYRINGE IV PUSH PRN ×4 (06:41→19:40)
[2017-10-12 08:00] VITALS: BP 125/75; PULSE 72; RESP 18; TEMP 97.3; O2SAT 96
[2017-10-12] MEDS: SODIUM CHLORIDE 0.9% FLUSH 10 ML FLUSH IV FLUSH SCH ×2 (09:00→20:03)
[2017-10-12] MEDS: PANTOPRAZOLE SODIUM 40 MG VIAL IV PUSH SCH (09:39)
[2017-10-12] MEDS: LOSARTAN 25 MG TAB PO SCH (09:43)
--- NOTE | 2017-10-12 10:26 | HHI.PR ---
Subjective Remarks Follow-up small bowel obstruction October 11, 2017-patient seen and examined, with increase NG tube output and patient reported episode of emesis overnight. Patient complains of significant abdominal tenderness. flat and upright revealed mostly stool throughout October 12, 2017-patient seen and examined, reports some improvement of abdominal pain however now complaining of back and chest pain. Requesting more stronger narcotics. When he did try some p.o. Review flat and upright with evidence of mild ileus. BP stable. Objective Vitals Vital Signs Date Time Temp Pulse Resp B/P (MAP) Pulse Ox O2 Delivery O2 Flow Rate FiO2 10/12/17 08:00 97.3 72 18 125/75 (92) 96 10/12/17 04:00 118/70 (86) 10/12/17 00:00 97.8 93 20 160/103 (122) 97 10/11/17 20:00 98.5 94 20 174/106 (128) 98 10/11/17 15:50 97.4 85 20 151/107 (122) 97 10/11/17 11:50 98.5 87 20 159/106 (123) 97 I/O 10/11/17 10/11/17 10/11/17 10/12/17 10/12/17 10/12/17 07:00 15:00 23:00 07:00 15:00 23:00 Intake Total 1500 ml 1461 ml 1845 ml Output Total 800 ml 50 ml 200 ml 1000 ml Balance 700 ml -50 ml 1261 ml 845 ml Intake Oral 0 ml 0 ml IV Total 1500 ml 1461 ml 1845 ml Output Urine Total 550 ml 1000 ml Stool Total 200 ml Gastric Drainage Total 250 ml 50 ml # Voids 2 # Bowel Movements 4 Result Diagram: 10/11/17 0426 10/11/17 0426 Imaging Last Impressions Abdomen X-Ray 10/12/17 0600 Signed Impressions: CONCLUSION: Mild ileus. Abdomen/Pelvis CT 10/10/17 0925 Signed Impressions: CONCLUSION: 1. Abnormal proximal small bowel look compared to distal suspicious for a smal l bowel obstruction. Transition is somewhere in the left lower quadrant 2. Status post left nephrectomy 3. Status post splenectomy 4. Trace ascites without free air. Objective Remarks GENERAL: NAD SKIN: Warm and dry. HEAD: Normocephalic. EYES: No scleral icterus. No injection or drainage. NECK: Supple, trachea midline. No JVD or lymphadenopathy. CARDIOVASCULAR: Regular rate and rhythm without murmurs, gallops, or rubs. RESPIRATORY: Breath sounds equal bilaterally. No accessory muscle use. GASTROINTESTINAL: Abdomen soft, mildly tender, +distended. +BS MUSCULOSKELETAL: No cyanosis, or edema. BACK: Nontender without obvious deformity. No CVA tenderness. A/P Problem List: (1) Ileus ICD Code: K56.7 - Ileus, unspecified (2) Small bowel obstruction ICD Code: K56.609 - Unspecified intestinal obstruction, unspecified as to partial versus complete obstruction Status: Resolved (3) Abdominal pain ICD Code: R10.9 - Unspecified abdominal pain Status: Acute Assessment and Plan 57-year-old man Small bowel obstruction-now resolved CT abdomen/pelvis noted with finding of small bowel obstruction on admission Repeat flat and upright this a.m. October 11, 2017 with evidence of extensive dilatation with stool throughout the colon with no evidence of obstruction Repeat flat and upright this a.m. October 12, 2017 with evidence of mild ileus NG tube accidentally removed yesterday October 11, 2017 Continue with conservative treatment, however if no improvement consult general surgery Pain management accordingly We will give Fleet enema today October 12, 2017 Start clear liquid diet October 12, 2017 and continue IV fluid hydration Repeat flat and upright in a.m. October 14, 2027 Hypertension Continue outpatient medication, and hydralazine /Vasotec as needed Chronic pain syndrome Treat with morphine as needed DVT prophylaxis: Bilateral SCDs GI prophylaxis: PPI Problem Qualifiers (1) Abdominal pain: Qualified Codes: R10.84 - Generalized abdominal pain Marcos Hernandez MD Oct 12, 2017 10:26
[2017-10-12] MEDS ORDERED: SOD PHOSPHATE/SOD BIPHOSPHATE (ADULT) ENEMA 133ML PR ONE (11:30)
[2017-10-12 12:00] VITALS: BP 157/94; PULSE 79; RESP 18; TEMP 98; O2SAT 96
[2017-10-12 16:00] VITALS: BP 130/80; PULSE 80; RESP 18; TEMP 98; O2SAT 97
[2017-10-12 20:00] VITALS: BP 161/98; PULSE 72; RESP 18; TEMP 96; O2SAT 98
[2017-10-13] VITALS (7 sets, daily range): BP systolic 141–180; BP diastolic 83–123; PULSE 76–108; RESP 18–20; TEMP 96.4–99.6; O2SAT 97–99
[2017-10-13] MEDS: HYDROmorphone HCL PF 0.5 MG/0.5 ML SYRINGE IV PUSH PRN ×5 (05:30→23:51)
[2017-10-13 08:13] LABS: AUTOMATED NEUTROPHIL # 2.2 TH/MM3 (1.8-7.7); BASOPHIL # 0.1 TH/MM3 (0-0.2); BASOPHIL % 1.7 % (0.0-2.0); EOSINOPHIL # 0.3 TH/MM3 (0-0.4); EOSINOPHIL % 4.9 % (0.0-4.0); HEMATOCRIT 34.9 % (39.0-51.0); HEMOGLOBIN 11.1 GM/DL (13.0-17.0); LYMPHOCYTE # 3.5 TH/MM3 (1.0-4.8); MEAN CELL VOLUME 92.3 FL (80.0-100.0); MEAN CORPUSCULAR HEMOGLOBIN 29.4 PG (27.0-34.0); MEAN CORPUSCULAR HGB CONC 31.9 % (32.0-36.0); MEAN PLATELET VOLUME 8.1 FL (7.0-11.0); MONOCYTE # 0.7 TH/MM3 (0-0.9); NEUT % 32.4 % (16.0-70.0); PLATELET COUNT 293 TH/MM3 (150-450); RED BLOOD COUNT 3.78 MIL/MM3 (4.50-5.90); RED CELL DISTRIBUTION WIDTH 12.8 % (11.6-17.2); WHITE BLOOD COUNT 6.8 TH/MM3 (4.0-11.0)
[2017-10-13 08:32] LABS: BICARBONATE 28.6 MEQ/L (21.0-32.0); CALCIUM 8.5 MG/DL (8.5-10.1)
[2017-10-13 08:36] LABS: CREATININE 0.7 MG/DL (0.60-1.30)
[2017-10-13] MEDS: D5-1/2 NS + KCL 20 MEQ INJ 1,000 ML IV SCH ×2 (08:48→17:57)
[2017-10-13] MEDS: SODIUM CHLORIDE 0.9% FLUSH 10 ML FLUSH IV FLUSH SCH ×2 (08:48→20:01)
[2017-10-13] MEDS: LOSARTAN 25 MG TAB PO SCH (08:48)
[2017-10-13] MEDS: PANTOPRAZOLE SODIUM 40 MG VIAL IV PUSH SCH (08:48)
--- NOTE | 2017-10-13 09:04 | RADRPT ---
EXAM DATE: 10/13/2017 8:57 AM EDT AGE/SEX: 57 years / Male INDICATIONS: Abdomen pain, ileus CLINICAL DATA: This is the patient's subsequent encounter. Patient reports that signs and symptoms h ave been present for 3 days and indicates a pain score of 9/10. MEDICAL/SURGICAL HISTORY: . Chronic obstructive pulmonary disease. Renal cell carcinoma. Gastr oesophageal reflux disease. Hypertension. Asthma. Hiatal hernia. Renal calculi. . . Nephrectomy, lef t. Appendectomy. Cholecystectomy. Splenectomy. COMPARISON: [facility], ABDOMEN FLAT & UPRIGHT, 10/12/2017. [facility], CT ABDOMEN & PELVIS W CONTRAST, 10/11/19 18. . FINDINGS: Upright and supine views of the abdomen demonstrate surgical clips within the left medial abdomen. Th ere are prominent small bowel loops identified within the left upper quadrant and left abdomen which appear increased in prominence as compared to the prior exam. There is the appearance of small bowel wall thickening identified within the left upper quadrant. There is air identified throughout the col on. No evidence of free air. CONCLUSION: Findings are concerning for an incomplete small bowel obstruction possible internal herniation given the distribution of the small bowel loops within the left upper quadrant. Electronically signed by: Teresita Davis MD 10/13/2017 9:03 AM EDT
[2017-10-13] MEDS: ALPRAZolam 1 MG TAB PO PRN ×3 (09:05→23:51)
--- NOTE | 2017-10-13 11:03 | HHI.PR ---
Subjective Remarks Patient seen and evaluated in follow-up for increased abdominal pain. Patient appears to have some partial small bowel obstruction with known intra-abdominal surgical procedures including splenectomy, kidney surgery and cholecystectomy. Patient with bowel movements overnight however reports increased bloating and increased 10 out of 10 pain not relieved with current Dilaudid IV. He reports nausea after attending to advance his diet. Objective Vitals Vital Signs Date Time Temp Pulse Resp B/P (MAP) Pulse Ox O2 Delivery O2 Flow Rate FiO2 10/13/17 07:50 97.8 95 20 149/92 (111) 97 10/13/17 00:00 97.7 76 18 141/83 (102) 97 10/12/17 20:00 96.0 72 18 161/98 (119) 98 10/12/17 16:00 98.0 80 18 130/80 (97) 97 10/12/17 12:00 98.0 79 18 157/94 (115) 96 I/O 10/12/17 10/12/17 10/12/17 10/13/17 10/13/17 10/13/17 07:00 15:00 23:00 07:00 15:00 23:00 Intake Total 1845 ml 1924 ml 1350 ml Output Total 1000 ml 1 ml 1000 ml Balance 845 ml 1923 ml 350 ml Intake Oral 0 ml 600 ml 420 ml IV Total 1845 ml 1324 ml 930 ml Output Urine Total 1000 ml 1000 ml Stool Total 1 ml # Voids 4 # Bowel Movements 2 Result Diagram: 10/13/17 0707 10/13/17 0707 Imaging Last Impressions Abdomen X-Ray 10/13/17 0600 Signed Impressions: CONCLUSION: Findings are concerning for an incomplete small bowel obstruction possible inte rnal herniation given the distribution of the small bowel loops within the left upper quadrant. Abdomen/Pelvis CT 10/10/17 0925 Signed Impressions: CONCLUSION: 1. Abnormal proximal small bowel look compared to distal suspicious for a smal l bowel obstruction. Transition is somewhere in the left lower quadrant 2. Status post left nephrectomy 3. Status post splenectomy 4. Trace ascites without free air. Objective Remarks GENERAL: This is a well-nourished, well-developed patient, planing of 10 out of 10 pain and nausea CARDIOVASCULAR: Regular rate and rhythm without murmurs, gallops, or rubs. RESPIRATORY: Clear to auscultation. Breath sounds equal bilaterally. No wheezes , rales, or rhonchi. GASTROINTESTINAL: Abdomen distended and tender, hypoactive bowel sounds MUSCULOSKELETAL: Extremities without clubbing, cyanosis, or edema. NEURO: Alert & Oriented x4 to person, place, time, situation. Moves all ext x4 A/P Problem List: (1) Small bowel obstruction ICD Code: K56.609 - Unspecified intestinal obstruction, unspecified as to partial versus complete obstruction Status: Resolved Plan: Patient with worsening symptoms despite bowel movements (after enemas) X-ray findings concerning for obstruction Follow-up General surgery consultation patient with known intra-abdominal surgery and may have had lesions N.p.o. IV hydration IV Dilaudid as needed for pain (2) HTN (hypertension) ICD Code: I10 - Essential (primary) hypertension Status: Resolved Plan: Vasotec and hydralazine as needed Ce Arias MD Oct 13, 2017 11:03
[2017-10-13] MEDS: hydrALAZINE HCL 25 MG TAB PO PRN (12:42)
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
[2017-10-13] MEDS: ACETAMINOPHEN/HYDROcodone 325 MG/7.5 MG TAB PO PRN ×2 (16:55→21:06)
[2017-10-13] MEDS ORDERED: DIATRIZOATE MEGLUM/DIATRIZOATE SOD 120 ML BTL (for RAD DIAG) PO ONE (17:57)
[2017-10-13] MEDS: MUPIROCIN 2% OINT 22 GM TUBE TOPICAL SCH (20:01)
--- NOTE | 2017-10-13 20:37 | RADRPT ---
EXAM DATE: 10/13/2017 8:31 PM EDT AGE/SEX: 57 years / Male INDICATIONS: Obstruction. CLINICAL DATA: This is the patient's initial encounter. Patient reports that signs and symptoms have been present for 1 week and indicates a pain score of 10/10. MEDICAL/SURGICAL HISTORY: Hypertension. Osteoporosis. Stroke. Neuropathy. . Splenectomy. Le ft kidney. Cholecystectomy. Appendectomy. Small intestine. COMPARISON: [facility], ABDOMEN FLAT & UPRIGHT, 10/13/2017. . FLUORO TIME: 0 IMAGE COUNT: 5 CONTRAST: [facility] FINDINGS: Preliminary film is unremarkable. The stomach is grossly unremarkable. Examination of the small bowel demonstrates normal mucosal pattern involving the jejunum and ileum. There is no evidence of mass or obstruction. No intraluminal filling defects are identified. Small bowel transit time is normal at 120 minutes. Fluoroscopy of the abdomen and terminal ileum demonstra becki no abnormality. CONCLUSION: No evidence of small bowel obstruction or filling defect. Electronically signed by: Cezar Russell MD 10/13/2017 8:35 PM EDT
[2017-10-14] MEDS: D5-1/2 NS + KCL 20 MEQ INJ 1,000 ML IV SCH ×2 (02:18→12:47)
[2017-10-14] MEDS: ACETAMINOPHEN/HYDROcodone 325 MG/7.5 MG TAB PO PRN ×2 (02:19→06:01)
[2017-10-14 04:00] VITALS: BP 138/90; PULSE 78
[2017-10-14] MEDS: HYDROmorphone HCL PF 0.5 MG/0.5 ML SYRINGE IV PUSH PRN (04:10)
[2017-10-14] MEDS: ALPRAZolam 1 MG TAB PO PRN ×2 (06:01→14:07)
[2017-10-14 07:50] VITALS: BP 157/117; PULSE 90; RESP 20; TEMP 96.4; O2SAT 99
[2017-10-14] MEDS: LOSARTAN 25 MG TAB PO SCH (09:08)
[2017-10-14] MEDS: PANTOPRAZOLE SODIUM 40 MG VIAL IV PUSH SCH (09:09)
[2017-10-14] MEDS: SODIUM CHLORIDE 0.9% FLUSH 10 ML FLUSH IV FLUSH SCH (09:11)
[2017-10-14] MEDS: MUPIROCIN 2% OINT 22 GM TUBE TOPICAL SCH (09:11)
--- NOTE | 2017-10-14 09:17 | HHI.PR ---
Subjective Remarks Patient seen and evaluated today in follow-up for abdominal pain likely secondary to intra-abdominal adhesions given his history of multiple surgical procedures. Small bowel follow-through was normal and patient has had multiple bowel movements. He has requested quite a bit of narcotics. Care plan discussed with patient. I do think oral narcotics would be useful in this patient. He is agreeable to try this regimen Objective Vitals Vital Signs Date Time Temp Pulse Resp B/P (MAP) Pulse Ox O2 Delivery O2 Flow Rate FiO2 10/14/17 04:00 78 138/90 (106) 10/13/17 23:56 96.4 83 20 175/105 (128) 98 10/13/17 21:27 99.6 108 20 165/116 (132) 99 10/13/17 17:57 19 10/13/17 15:50 97.4 86 20 158/115 (129) 99 10/13/17 14:56 18 10/13/17 11:15 81 175/114 (134) 10/13/17 11:00 97.5 83 20 180/123 (142) 98 I/O 10/13/17 10/13/17 10/13/17 10/14/17 10/14/17 10/14/17 07:00 15:00 23:00 07:00 15:00 23:00 Intake Total 1350 ml 70 ml 1180 ml 1000 ml Output Total 1000 ml Balance 350 ml 70 ml 1180 ml 1000 ml Intake Oral 420 ml 180 ml IV Total 930 ml 70 ml 1000 ml 1000 ml Output Urine Total 1000 ml # Voids 3 4 # Bowel Movements 2 1 2 Result Diagram: 10/13/17 0707 10/13/17 0707 Imaging Last Impressions Abdomen X-Ray 10/13/17 0600 Signed Impressions: CONCLUSION: Findings are concerning for an incomplete small bowel obstruction possible inte rnal herniation given the distribution of the small bowel loops within the left upper quadrant. Small Bowel X-Ray 10/13/17 0000 Signed Impressions: CONCLUSION: No evidence of small bowel obstruction or filling defect. Abdomen/Pelvis CT 10/10/17 0925 Signed Impressions: CONCLUSION: 1. Abnormal proximal small bowel look compared to distal suspicious for a smal l bowel obstruction. Transition is somewhere in the left lower quadrant 2. Status post left nephrectomy 3. Status post splenectomy 4. Trace ascites without free air. Objective Remarks GENERAL: This is a well-nourished, well-developed patient, planing of 10 out of 10 pain without nausea CARDIOVASCULAR: Regular rate and rhythm without murmurs, gallops, or rubs. RESPIRATORY: Clear to auscultation. Breath sounds equal bilaterally. No wheezes , rales, or rhonchi. GASTROINTESTINAL: Abdomen flat and subjectively tender, hypoactive bowel sounds MUSCULOSKELETAL: Extremities without clubbing, cyanosis, or edema. NEURO: Alert & Oriented x4 to person, place, time, situation. Moves all ext x4 A/P Problem List: (1) Small bowel obstruction ICD Code: K56.609 - Unspecified intestinal obstruction, unspecified as to partial versus complete obstruction Status: Resolved Plan: Patient with worsening symptoms despite bowel movements (after enemas), small bowel follow-through is negative Patient still complaining of pain General surgery consult appreciated in this patient who has concerning symptoms with possible intra-abdominal adhesions N.p.o. IV hydration Oral IV Dilaudid [place]/ as needed for pain (2) HTN (hypertension) ICD Code: I10 - Essential (primary) hypertension Status: Resolved Plan: Vasotec and hydralazine as needed Discharge Planning home when cleared by Gen Surg, may need ex Ce Blue MD Oct 14, 2017 09:17
[2017-10-14] MEDS: HYDROmorphone HCL 2 MG TAB PO PRN ×2 (09:29→14:07)
[2017-10-14 11:50] VITALS: BP 169/121; PULSE 88; RESP 20; TEMP 97.3; O2SAT 98
[2017-10-14] MEDS: hydrALAZINE HCL 25 MG TAB PO PRN (13:00)
--- NOTE | 2017-10-14 14:58 | HHI.PR ---
Subjective Subjective Notes Still in pain. SBFT basically normal. Had liquid BMs. He is asking to go home. Objective Vitals/I&O Vital Signs Date Time Temp Pulse Resp B/P (MAP) Pulse Ox O2 Delivery O2 Flow Rate FiO2 10/14/17 11:50 97.3 88 20 169/121 (137) 98 10/10/17 11:41 Room Air Labs Laboratory Tests Test 10/13/17 15:10 Lactic Acid Level 1.2 Narrative Exam NAD Abd: soft, moderate ttp diffusely worse on left A/P Assessment and Plan 57 yo M with abdominal pain, multiple previous surgeries, h/o kidney cancer with intrabdominal recurrences. No obstruction on SBFT. Recommend soft diet and discharge home. Important that he follow up with an oncologist, spray unit feeder. Can f/u with me in the next month. No plans for operative intervention at this time. Discussed this all in detail with him. Nico,Keny KEARNEY Oct 14, 2017 14:58
[2017-10-14] MEDS ORDERED: HYDR-3516 PO (15:01)
[2017-10-14] MEDS ORDERED: LOSA50TA PO (15:18)
[2017-10-14] MEDS ORDERED: PANT40TA3 PO (15:18)
--- NOTE | 2017-10-14 15:24 | HHI.DCPOC ---
Discharge Care Plan Diagnosis: (1) Small bowel obstruction (2) HTN (hypertension) Goals to Promote Your Health * To prevent worsening of your condition and complications * To maintain your health at the optimal level Directions to Meet Your Goals Take your medications as prescribed Follow your dietary instruction Follow activity as directed Keep your appointments as scheduled Take your immunizations and boosters as scheduled If your symptoms worsen call your PCP, if no PCP go to Urgent Care Center or Emergency Room Smoking is Dangerous to Your Health. Avoid second hand smoke Call the 24-hour hour crisis hotline for domestic abuse at [facility] Oct 14, 2017 15:24
[2017-10-14] MEDS ORDERED: Mupirocin 2% Oint TOPICAL (15:48)
[2017-10-14 15:50] VITALS: BP 156/103; PULSE 81; RESP 20; TEMP 97.3; O2SAT 97
[2017-10-14] MEDS ORDERED: LOSARTAN 25 MG TAB PO ONE (16:30)
[2017-10-15] MEDS ORDERED: PANTOPRAZOLE SOD 40 MG DELAYED RELEASE TAB PO SCH (09:00)
== END 2017-10-14 17:58 | disposition home or self-care (01) | DRG 390 ==
LOC: PHED 08:44 → PHEDA 11:08 → PH3A 12:39
PROVIDERS: ADMIT Hospitalist; ATTEND Hospitalist
DX: K56.609 Unspecified intestinal obstruction, unspecified as to partial versus complete obstruction (principal); I10 Essential (primary) hypertension; K56.7 Ileus, unspecified; F32.9 Major depressive disorder, single episode, unspecified; K21.9 Gastro-esophageal reflux disease without esophagitis; G89.4 Chronic pain syndrome; F12.90 Cannabis use, unspecified, uncomplicated; M19.90 Unspecified osteoarthritis, unspecified site; J44.9 Chronic obstructive pulmonary disease, unspecified; F41.9 Anxiety disorder, unspecified; Z85.528 Personal history of other malignant neoplasm of kidney; Z90.5 Acquired absence of kidney
CPT/HCPCS: 74019; 74177; 74250; 80048; 80053; 81001; 83605; 83690; 85025; 96361; 96374; 96375; C9113; J1170; J2060; J2270; J2405; J2765; J3480; J7030; Q9963; Q9967